=== PATIENT | female | born 1990 | race Caucasian/White ===

== ENCOUNTER 2016-05-07 18:08 | Outpatient (CLI) | payer BC ==
[2016-05-07] MEDS ORDERED: SODIUM CHLORIDE 0.9% 1,000 ML IV ONE ×2 (18:24)
[2016-05-07 18:57] VITALS: BP 132/77; PULSE 69; RESP 16; TEMP 97
--- NOTE | 2016-05-07 20:00 | P.PN ---
Subjective Principal diagnosis: Dehydration Patient has just notified me of 3 days of diarrhea at least 5-6 times daily of pale consistency and foul odor. She also developed acute vomiting last night. She is unable to keep anything oral. She also reports persistent nausea. She is accompanied by her mother and grandmother. No reports of fevers or chills. She denies any purulent drainage from left upper quadrant incision. Incidentally, she had fell and her left upper quadrant incision. Objective - Vital Signs Vital signs: Vital Signs Temp 97 F L 05/07/16 18:35 Pulse 69 05/07/16 18:35 Resp 16 05/07/16 18:35 BP 132/77 05/07/16 18:35 Pulse Ox 96 05/07/16 18:35 Intake & Output 05/07/16 05/07/16 05/08/16 06:59 18:59 06:59 Weight 153.768 kg - Exam GENERAL: Well developed and in no acute distress. Pleasant. HEENT: No sclera icterus. Extraocular movements grossly intact. Moist buccal mucosa. Head is atraumatic, normocephalic. Hears conversational speech. No nasal drainage. NECK: Supple without lymphadenopathy. No JV distention. CHEST: Non-labored respirations and equal bilateral excursions. CARDIOVASCULAR: Regular rate and rhythm. Palpable 2+ radial pulses. ABDOMEN: Soft. Nondistended. Mild tenderness along the left upper quadrant. No signs of infection or cellulitis. MUSCULOSKELETAL: No clubbing, cyanosis or edema. NEUROLOGIC: No focal or lateralizing signs. PSYCH: Appropriate affect. Alert and oriented to person, place and time. Assessment and Plan (1) Diarrhea Status: Acute (2) Dehydration Status: Acute (3) Intractable nausea and vomiting Status: Acute (4) Acute diverticulitis Status: Acute (5) BMI 50.0-59.9, adult Status: Chronic (6) Benign hypertension without congestive heart failure Status: Chronic (7) Morbid (severe) obesity due to excess calories Status: Chronic (8) S/P gastric bypass Status: Chronic Plan: 1. Recommend IV fluid hydration. As her symptoms has been ongoing for 3 days, she may be behind in fluids anywhere between 6-8 L. 2. For her history of diverticulitis, recommend Flagyl 500 mg 3 times daily. 3. CBC including compress a metabolic panel. 4. Recommend follow-up in the [facility] in 24-48 hours. 5. Postoperative bariatric instructions are also addressed including to notify the center of any acute issues as early as possible.
[2016-05-07 20:14] LABS: ALT 46 U/L (9-52); AST 58 U/L (14-36); Alkaline Phosphatase 41 U/L (38-126); Anion Gap 11 mmol/L; Blood Urea Nitrogen 13 mg/dL (7-17); Calcium 9.1 mg/dL (8.4-10.2); Carbon Dioxide 23 mmol/L (22-30); Chloride 105 mmol/L (98-107); Glucose 84 mg/dL (74-99); Magnesium 1.9 mg/dL (1.6-2.3); Non-African American GFR(MDRD) >60 (>60 ml/min/1.73 sqM); Sodium 139 mmol/L (137-145); Total Bilirubin 0.7 mg/dL (0.2-1.3); Total Protein 7.1 g/dL (6.3-8.2)
[2016-05-07 20:19] LABS: Potassium 5.6 mmol/L (3.5-5.1)
[2016-05-07 20:56] LABS: Basophils # (A) 0.1 k/uL (0-0.2); Basophils % (A) 1 %; CH 29.2; CHCM 34.5; Eosinophils # (A) 0.2 k/uL (0-0.7); Eosinophils % (A) 2 %; HCT 37.7 % (34.0-46.0); HDW 2.94; HGB 12.8 gm/dL (11.4-16.0); Luc # (Auto) 0.13; Luc % (Auto) 2; Lymphocytes # (A) 1.8 k/uL (1.0-4.8); Lymphocytes % (A) 28 %; MCH 28.8 pg (25.0-35.0); MCHC 33.9 g/dL (31.0-37.0); MCV 85.1 fL (80.0-100.0); Mean Platelet Volume 7.1; Monocytes # (A) 0.4 k/uL (0-1.0); Monocytes % (A) 6 %; Neutrophils # (A) 3.9 k/uL (1.3-7.7); Neutrophils % (A) 61 %; RBC 4.43 m/uL (3.80-5.40); RDW 12.1 % (11.5-15.5); WBC 6.5 k/uL (3.8-10.6); WBC (Perox) 6.71
== END 2016-05-07 21:15 | disposition home or self-care (01) ==
LOC: PEDOP 18:08
PROVIDERS: ATTEND Surgery Plastic and Reconstructive Surgery
DX: Z48.815 Encounter for surgical aftercare following surgery on the digestive system (principal); R19.7 Diarrhea, unspecified; E86.0 Dehydration; R11.2 Nausea with vomiting, unspecified; K57.92 Diverticulitis of intestine, part unspecified, without perforation or abscess without bleeding; I10 Essential (primary) hypertension; E66.01 Morbid (severe) obesity due to excess calories; Z68.43 Body mass index [BMI] 50.0-59.9, adult; Z98.84 Bariatric surgery status
CPT/HCPCS: 80053; 83735; 85025; 96360; 96361

== ENCOUNTER → 2016-05-09 | Outpatient (CLI) | payer BC ==
--- NOTE | 2016-05-27 16:40 | P.PN ---
Progress Note - Text DATE OF SERVICE: 05/09/2016 CHIEF COMPLAINT: Followup, gastric bypass. HISTORY OF PRESENT ILLNESS: Bisi Allen is a 26-year-old female, status post Raissa-en-Y gastric bypass on 04/18/2016. She is approximately 3 weeks out. For her height of approximately 5 feet 8-1/2 inches, her ideal body weight is 163 pounds. Her highest weight was 366 pounds. Today she comes in weighing 335 pounds. She has now lost 32 pounds in 3 weeks. Percent excess weight loss is 16%. Body mass index has been reduced from 55 to 50.2. In the past she did report some troubles with nausea and diarrhea, which after IV fluid hydration 48 hours ago have now resolved. She denies any abdominal pain. She is managing at least 3 protein shakes daily. PHYSICAL EXAM: VITAL SIGNS: 98.4, 76, 150/67, 16, 5 feet 8-1/2 inches, 335 pounds. Body mass index 50.2. GENERAL: Well-developed female in no acute distress. ABDOMEN: All incisions granulated. No signs of infection or cellulitis. HEENT: No scleral icterus. Extraocular movements intact grossly intact. NECK: Supple without lymphadenopathy. CHEST: Nonlabored respirations. Equal bilateral excursions. CARDIOVASCULAR: Regular rate and rhythm. MUSCULOSKELETAL: No clubbing, cyanosis, or edema. NEURO: No focal or lateralizing signs. Cranial nerves II through XII within normal limits. PSYCH: Appropriate affect. Alert and oriented times to person, place and time. ASSESSMENT: 1. Morbid obesity due to excess calories. 2. Body mass index reduced from 55 to 50.2. 3. Status post Raissa-en-Y gastric bypass. 4. Dietary surveillance and counseling. PLAN: 1. I have recommended continued IV fluid hydration and boluses. 2. Her symptoms of diarrhea have completely resolved with IV fluids. 3. Recommend bariatric metabolic panel. ADDENDUM: Recent labs reviewed, with hemoglobin normal at 12.8. White blood cell count was within normal limits at 6.5. Potassium was initially elevated at 5.6; however, consistent with hemolysis. Creatinine was normal at 0.61. AST was elevated at 58. Triglycerides were not performed at this time. Recommend repeat blood work, ideally at least at 3-month visit.
== END | disposition home or self-care (01) ==
CPT/HCPCS: 99211

== ENCOUNTER → 2016-05-17 | Outpatient (CLI) | payer BC ==
[2016-05-17 11:26] VITALS: BP 142/96; PULSE 67; RESP 14; TEMP 98.4; BMI 48.7
--- NOTE | 2016-05-17 11:36 | P.PN ---
Progress Note - Text To whom it may concern: Bisi Allen is under my general surgery care. She may return to work without restrictions. Sincerely, Suad Sharif MD, FACS, FICS, Dip JAEM
[2016-05-17 12:44] LABS: INR 1.2 (<1.1); Partial Thromboplastin Time 24.6 sec (22.0-30.0); Prothrombin Time 11.6 sec (9.0-12.0)
[2016-05-17 12:48] LABS: ALT 58 U/L (9-52); AST 42 U/L (14-36); Alkaline Phosphatase 53 U/L (38-126); Anion Gap 13 mmol/L; Blood Urea Nitrogen 12 mg/dL (7-17); Calcium 9.7 mg/dL (8.4-10.2); Carbon Dioxide 24 mmol/L (22-30); Chloride 105 mmol/L (98-107); Cholesterol 174 mg/dL (<200); Glucose 94 mg/dL (74-99); HDL Cholesterol 32 mg/dL (40-60); Iron 70 ug/dL (37-170); Non-African American GFR(MDRD) >60 (>60 ml/min/1.73 sqM); Potassium 4.6 mmol/L (3.5-5.1); Sodium 142 mmol/L (137-145); Total Bilirubin 0.6 mg/dL (0.2-1.3); Total Protein 6.8 g/dL (6.3-8.2); Triglycerides 155 mg/dL (<150)
[2016-05-17 12:58] LABS: % Iron Saturation 20.2 % (20-50); Total Iron Binding Capacity 347 ug/dL (265-497)
[2016-05-17 13:10] LABS: CH 29.1; CHCM 34.3; HCT 40.6 % (34.0-46.0); HDW 2.93; HGB 13.6 gm/dL (11.4-16.0); MCH 28.6 pg (25.0-35.0); MCHC 33.6 g/dL (31.0-37.0); Mean Platelet Volume 6.7; RBC 4.77 m/uL (3.80-5.40); RDW 12.5 % (11.5-15.5); WBC 6.2 k/uL (3.8-10.6)
[2016-05-17 13:28] LABS: Prealbumin 23 mg/dL (18-36)
[2016-05-17 14:23] LABS: Vitamin B12 587 pg/mL (239-931)
[2016-05-24 18:11] LABS: Selenium 137 mcg/L (63-160)
--- NOTE | 2016-05-27 20:57 | P.PN ---
Progress Note - Text DATE OF SERVICE: 05/17/2016 CHIEF COMPLAINT: Follow up gastric bypass. HISTORY OF PRESENT ILLNESS: Bisi Allen is a 26-year-old female, status post gastric bypass 04/18/2016. She is now one month out. Her initial weight in the program was 366 pounds. Today she comes in weighing 330 pounds. She has lost 37 pounds in one month . Her percent excess weight loss is 18%. Body mass index is reduced from 55 down to 49.5. She has lost 5 pounds in less than a week. She comes is now complaining that she cannot tolerate chicken. She has trouble tolerating tuna fish. She can drink liquids. She has tried chili and shredded chicken and has done okay. Now she presents for further evaluation and management. Separately, she does complain of a moderate burping which has increased in the last several weeks. She is keeping adequate fluid intake. PHYSICAL EXAM: VITAL SIGNS: 98.4, 67, 14, 142/96, 5 foot 8-1/2, 330 pounds. Body mass index 49.5. ABDOMEN: No palpable incisional hernias. No signs of infection or cellulitis. GENERAL: Well developed female in no acute distress. HEENT: No scleral icterus. Extraocular movements intact grossly intact. NECK: Supple without lymphadenopathy. CHEST: Nonlabored respirations. Equal bilateral excursions. CARDIOVASCULAR: Regular rate and rhythm. MUSCULOSKELETAL: No clubbing, cyanosis, or edema. NEURO: No focal or lateralizing signs. Cranial nerves II through XII within normal limits. PSYCH: Appropriate affect. Alert and oriented times to person, place and time. LABS: Bariatric metabolic panel demonstrating hemoglobin normal at 13.6. INR normal at 1.2. AST elevated at 42. ALT elevated at 58. Triglycerides elevated at 155. LDL elevated at 111. HDL low at 32. Vitamin D is low at 17.9. Trace elements still pending; however, I feel within normal limits. ASSESSMENT: 1. Morbid obesity due to excess calories. 2. Body mass index reduced from 55 down to 49.5. 3. Status post gastric bypass. 4. Vitamin D deficiency. 5. Hypertriglyceridemia. 6. Elevated liver enzymes. 7. Dietary surveillance and counseling. 8. Dysphagia. PLAN: 1. Recommend upper endoscopy, as she may have early features of stricture from her surgery. 2. In the interim, she will continue with liquids; however, she may trial solid foods. 3. She has vitamin D deficiency. I recommend 50,000 units daily for treatment. 4. She may start multivitamins in the interim. 5. Recommend follow up of LFTs as she is still pretty early in her postoperative course. 6. She will continue with omeprazole 40 mg daily for up to 3 months for pouch care.
== END | disposition home or self-care (01) ==
LOC: BARWHC3 10:47
PROVIDERS: ATTEND Surgery Plastic and Reconstructive Surgery
DX: Z48.815 Encounter for surgical aftercare following surgery on the digestive system (principal); Z98.84 Bariatric surgery status; Z71.3 Dietary counseling and surveillance; E66.01 Morbid (severe) obesity due to excess calories; Z68.42 Body mass index [BMI] 45.0-49.9, adult; E55.9 Vitamin D deficiency, unspecified; E78.1 Pure hyperglyceridemia; R79.89 Other specified abnormal findings of blood chemistry; R13.10 Dysphagia, unspecified; Z79.899 Other long term (current) drug therapy
CPT/HCPCS: 36415; 80053; 80061; 82306; 82525; 82607; 82728; 82746; 83036; 83540; 83550; 83735; 83970; 84100; 84134; 84255; 84425; 84443; 84590; 84630; 85027; 85610; 85730; 99211

== ENCOUNTER 2016-05-20 15:53 | Outpatient (CLI) | payer BC ==
--- NOTE | 2016-05-20 14:31 | P.PN ---
Progress Note - Text Patient notified the bariatric center regarding inability to tolerate oral liquids. She has difficulty with solid foods. She reports dysphagia. She also reports nausea with signs of dehydration. Patient was asked to come in to receive IV fluid hydration. Will proceed with upper endoscopy as an outpatient.
--- NOTE | 2016-05-20 14:33 | P.PN ---
Subjective Principal diagnosis: Dehydration The patient presents with a history of dehydration. She reports intractable nausea and vomiting. She has been unable to tolerate liquids. Now she presents for IV fluid hydration. Objective - Vital Signs Vital signs: Vital Signs Temp 97.6 F 05/20/16 16:40 Pulse 73 05/20/16 16:40 Resp 20 05/20/16 16:40 BP 158/83 05/20/16 16:40 Pulse Ox 97 05/20/16 16:40 Intake & Output 05/19/16 05/20/16 05/20/16 18:59 06:59 18:59 Weight 149.685 kg - Exam GENERAL: Well developed and in no acute distress. Pleasant. HEENT: No sclera icterus. Extraocular movements grossly intact. Moist buccal mucosa. Head is atraumatic, normocephalic. Hears conversational speech. No nasal drainage. NECK: Supple without lymphadenopathy. No JV distention. CHEST: Non-labored respirations and equal bilateral excursions. CARDIOVASCULAR: Regular rate and rhythm. Palpable 2+ radial pulses. ABDOMEN: Soft, nontender. Nondistended. MUSCULOSKELETAL: No clubbing, cyanosis or edema. NEUROLOGIC: No focal or lateralizing signs. PSYCH: Appropriate affect. Alert and oriented to person, place and time. Assessment and Plan (1) Dehydration Status: Acute (2) Dysphagia Status: Acute Plan: 1. Recommend IV fluid hydration. 2. Recommend upper endoscopy with balloon dilatation as an outpatient. 3. Liquid diet in the interim.
[~2016-05-20 15:53] MED LIST: SODIUM CHLORIDE 0.9% 1,000 ML IV SCH; SODIUM CHLORIDE 0.9% 2,000 ML IV ONE
[2016-05-20 16:46] VITALS: BP 158/83; PULSE 73; RESP 20; TEMP 97.6
== END 2016-05-20 18:56 | disposition home or self-care (01) ==
LOC: PEDOP 15:53
PROVIDERS: ATTEND Surgery Plastic and Reconstructive Surgery
DX: Z48.815 Encounter for surgical aftercare following surgery on the digestive system (principal); E86.0 Dehydration; R13.10 Dysphagia, unspecified; R11.2 Nausea with vomiting, unspecified
CPT/HCPCS: 96360; 96361

== ENCOUNTER 2016-05-21 11:20 | Day surgery (SDC) | payer BC ==
[~2016-05-21 11:20] MED LIST changes: -SODIUM CHLORIDE 0.9% 2,000 ML IV ONE
[2016-05-21] MEDS ORDERED: SODIUM CHLORIDE 0.9% 2,000 ML IV ONE (11:41)
[2016-05-21 12:14] VITALS: TEMP 98.8
[2016-05-21] MEDS ORDERED: LIDOCAINE 1% 20 ML VIAL (10MG/ML) FOR IV START INTRADERMA ONE (12:39)
[2016-05-21] MEDS ORDERED: LIDOCAINE 1% INJ 10MG/ML (20 ML MDV) ONE (13:17)
[2016-05-21] MEDS ORDERED: PROPOFOL 10 MG/ML 20 ML VIAL IV ONE (13:17)
--- NOTE | 2016-05-21 13:22 | P.GSHP ---
History of Present Illness H&P Date: 05/21/16 CHIEF COMPLAINT: Dysphagia HISTORY OF PRESENT ILLNESS: The patient is a 26-year-old female who presents reports dysphagia. Upper endoscopy was offered for further evaluation and management. PAST MEDICAL HISTORY: Please see list. PAST SURGICAL HISTORY: Please see list. MEDICATIONS: Please see list. ALLERGIES: Please see list. SOCIAL HISTORY: No illicit drug use FAMILY HISTORY: No reports of Crohn disease or ulcerative colitis. REVIEW OF ORGAN SYSTEMS: CONSTITUTIONAL: No reports of fevers or chills. GI: Denies any blood in stools or constipation. PHYSICAL EXAM: VITAL SIGNS: Stable GENERAL: Well-developed and pleasant in no acute distress. HEENT: No scleral icterus. Extraocular movements grossly intact. Moist buccal mucosa. NECK: Supple without lymphadenopathy. CHEST: Unlabored respirations. Equal bilateral excursions. CARDIOVASCULAR: Regular rate and rhythm. Distal 2+ pulses. ABDOMEN: Soft, nondistended. MUSCULOSKELETAL: No clubbing, cyanosis, or edema. ASSESSMENT: 1. Dysphagia. PLAN: 1. Recommend proceeding with an upper endoscopy with balloon dilation. Past Medical History Past Medical History: Hypertension, Thyroid Disorder Additional Past Medical History / Comment(s): Diverticulitis diagnosed in 2010. HX LOW THYROID RX FEW YEARS AGO. HIATAL HERNIA. BORDERLINE HTN. History of Any Multi-Drug Resistant Organisms: None Reported Past Surgical History: Bariatric Surgery, Cholecystectomy, Tonsillectomy Additional Past Surgical History / Comment(s): Cholecystecomy Nov 2015. EGD 03/07/16. gastric bypass -16 Past Anesthesia/Blood Transfusion Reactions: Family History of Problems w/ Anesthesia, Postoperative Nausea & Vomiting (PONV) Additional Past Anesthesia/Blood Transfusion Reaction / Comment(s): NEVER RECEIVED BLOOD. PARENTS HAVE PONV. Past Psychological History: No Psychological Hx Reported Smoking Status: Never smoker Past Alcohol Use History: None Reported Past Drug Use History: None Reported - Past Family History Father Family Medical History: No Reported History Mother Family Medical History: No Reported History Medications and Allergies Allergies Allergy/AdvReac Type Severity Reaction Status Date / Time venom-honey bee Allergy Swelling Verified 05/20/16 16:31 [bee venom (honey bee)] gluten AdvReac Abdominal Verified 05/20/16 16:31 Pain Surgical - Exam Vital Signs Temp Pulse Resp BP Pulse Ox 98.8 F 76 16 127/71 97 05/21/16 12:13 05/21/16 12:13 05/21/16 12:13 05/21/16 12:13 05/21/16 12:13
--- NOTE | 2016-05-21 13:36 | P.PCN ---
Date of Procedure: 05/21/16 Description of Procedure: PREOPERATIVE DIAGNOSIS: Dysphagia. Nausea with vomiting. Morbid obesity. POSTOPERATIVE DIAGNOSIS: Dysphagia. Nausea with vomiting. Morbid obesity. 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 OPERATION: Esophagogastrojejunoscopy with balloon dilatation from 1 to 9 mm. SURGEON: Suad Sharif MD ANESTHESIA: MAC. INDICATIONS: The patient is a 26-year-old female who presents with a history of dysphagia, gastric bypass including new-onset nausea and vomiting. Benefits and risks of the procedure were described. Informed consent was obtained. DESCRIPTION: The patient was brought into the endoscopy suite and laid in the left lateral decubitus position. After a timeout was confirmed, the procedure was initiated. An Olympus gastroscope was passed along the posterior oropharynx down to the distal esophagus where the squamocolumnar junction was unremarkable. The gastric pouch was entered. A gastrojejunal stricture of 11 mm was found as the adult gastroscope was 8.6 mm in size. The actual ball tip of the balloon was actually larger than the entry of her anastomosis. A [employer] balloon dilator was placed through the scope. Final insufflation up to 9 mm was performed with a total of 2 minutes. The scope was advanced up to 60 cm from the incisors into the Raissa limb. The mucosa of the gastrojejunal anastomosis was intact without full-thickness injury. The GI tract was desufflated. The patient tolerated the procedure well. FINDINGS: Squamocolumnar junction unremarkable at 37 cm. Stricture of approximately 1 mm encountered. Chronic gastrojejunal early ulceration encountered. Successful balloon dilatation to 9 mm. Diaphragmatic hiatus at 40 cm. Gastric pouch 3 cm. RECOMMENDATIONS: Continue with omeprazole. Add Carafate for gastrojejunal ulcer. Will need repeat upper endoscopy with goal of 15 to 20 mm balloon. Plan - Discharge Summary Discharge Medication List Omeprazole 40 mg PO DAILY #90 capsule. 04/19/16 [Rx] Follow up Appointment(s)/Referral(s): Suad Sharif MD [STAFF PHYSICIAN] - 05/30/16 Patient Instructions/Handouts: Esophageal Dilation (DC), Chronic Dysphagia (DC) Activity/Diet/Wound Care/Special Instructions: Liquid diet today. Regular diet tomorrow. Discharge Disposition: HOME SELF-CARE
[2016-05-21] MEDS ORDERED: ONDANSETRON 4 MG/2 ML VIAL IVP ONE (13:57)
[2016-05-21 14:54] VITALS: RESP 18
[2016-05-21 15:25] VITALS: BP 147/78; PULSE 78
== END 2016-05-21 15:18 | disposition home or self-care (01) ==
LOC: ORWHC2ENDO 11:20
PROVIDERS: ATTEND Surgery Plastic and Reconstructive Surgery
DX: K31.89 Other diseases of stomach and duodenum (principal); K28.7 Chronic gastrojejunal ulcer without hemorrhage or perforation; Z98.84 Bariatric surgery status; E66.01 Morbid (severe) obesity due to excess calories; K21.9 Gastro-esophageal reflux disease without esophagitis; Z79.899 Other long term (current) drug therapy; Z91.030 Bee allergy status
CPT/HCPCS: 81025; 84703; 43249; J2405; J2001; J2704; C1726; 99153

== ENCOUNTER 2016-06-06 08:02 | Day surgery (SDC) | payer BC ==
[2016-06-05 15:26] VITALS: BMI 48.6
--- NOTE | 2016-06-06 05:53 | P.GSHP ---
History of Present Illness H&P Date: 06/06/16 CHIEF COMPLAINT: GERD HISTORY OF PRESENT ILLNESS: The patient is a 26-year-old female who presents reports gastroesophageal reflux disease. Upper endoscopy was offered for further evaluation and management. PAST MEDICAL HISTORY: Please see list. PAST SURGICAL HISTORY: Please see list. MEDICATIONS: Please see list. ALLERGIES: Please see list. SOCIAL HISTORY: No illicit drug use FAMILY HISTORY: No reports of Crohn disease or ulcerative colitis. REVIEW OF ORGAN SYSTEMS: CONSTITUTIONAL: No reports of fevers or chills. GI: Denies any blood in stools or constipation. PHYSICAL EXAM: VITAL SIGNS: Stable GENERAL: Well-developed and pleasant in no acute distress. HEENT: No scleral icterus. Extraocular movements grossly intact. Moist buccal mucosa. NECK: Supple without lymphadenopathy. CHEST: Unlabored respirations. Equal bilateral excursions. CARDIOVASCULAR: Regular rate and rhythm. Distal 2+ pulses. ABDOMEN: Soft, nondistended. MUSCULOSKELETAL: No clubbing, cyanosis, or edema. ASSESSMENT: 1. Gastroesophageal reflux disease PLAN: 1. Recommend proceeding with an upper endoscopy Past Medical History Past Medical History: Hypertension, Thyroid Disorder Additional Past Medical History / Comment(s): HX OF DIVERTICULITIS (2010), HIATAL HERNIA.. BORDERLINE HTN., STATES FOOD DOES NOT WANT TO STAY DOWN- SPITTING UP. History of Any Multi-Drug Resistant Organisms: None Reported Past Surgical History: Bariatric Surgery, Cholecystectomy, Tonsillectomy Additional Past Surgical History / Comment(s): Cholecystecomy Nov 2015. EGD 03/07/16, 05/21/16. , АНДРЕЙ-EN-Y GASTRIC BYPASS (04/18/16) Past Anesthesia/Blood Transfusion Reactions: Family History of Problems w/ Anesthesia, Motion Sickness, Postoperative Nausea & Vomiting (PONV) Additional Past Anesthesia/Blood Transfusion Reaction / Comment(s): IMMEDIATE FAMILY ALSO HAVE PONV. Past Psychological History: No Psychological Hx Reported Smoking Status: Never smoker Past Alcohol Use History: None Reported Past Drug Use History: None Reported - Past Family History Father Family Medical History: No Reported History Mother Family Medical History: No Reported History Medications and Allergies Home Medications Medication Instructions Recorded Confirmed Type Calcium Citrate (Unknown Dose) 1 dose PO DAILY 06/05/16 06/05/16 History Multivitamins, Thera [Multivitamin] 1 tab PO DAILY 06/05/16 06/05/16 History Allergies Allergy/AdvReac Type Severity Reaction Status Date / Time venom-honey bee Allergy Swelling Verified 06/05/16 15:14 [bee venom (honey bee)] gluten AdvReac Abdominal Verified 06/05/16 15:14 Pain
[~2016-06-06 08:02] MED LIST changes: +LACTATED RINGERS 1,000 ML IV SCH; +LIDOCAINE 1% 20 ML VIAL (10MG/ML) FOR IV START INTRADERMA PRN; -SODIUM CHLORIDE 0.9% 1,000 ML IV SCH
[2016-06-06 08:23] VITALS: RESP 16; TEMP 98.6
[2016-06-06] MEDS ORDERED: GLYCOPYRROLATE 0.2 MG/ML 2 ML VIAL ONE (09:16)
[2016-06-06] MEDS ORDERED: LIDOCAINE 1% INJ 10MG/ML (20 ML MDV) ONE (09:16)
[2016-06-06] MEDS ORDERED: PROPOFOL 10 MG/ML 20 ML VIAL IV ONE (09:16)
--- NOTE | 2016-06-06 09:32 | P.PCN ---
Date of Procedure: 06/06/16 Description of Procedure: PREOPERATIVE DIAGNOSIS: Dysphagia. Nausea with vomiting. Morbid obesity. POSTOPERATIVE DIAGNOSIS: Dysphagia. Nausea with vomiting. Morbid obesity. Gastric stenosis along gastrojejunal anastomosis. OPERATION: Esophagogastrojejunoscopy with balloon dilatation from 7 to 12 mm. SURGEON: Suad Sharif MD ANESTHESIA: MAC. INDICATIONS: The patient is a 26-year-old female who presents with a history of stenosis and dysphagia to solid foods. Benefits and risks of the procedure were described. Informed consent was obtained. DESCRIPTION: The patient was brought into the endoscopy suite and laid in the left lateral decubitus position. After a timeout was confirmed, the procedure was initiated. An Olympus gastroscope was passed along the posterior oropharynx down to the distal esophagus where the squamocolumnar junction was unremarkable. The gastric pouch was entered. A gastrojejunal stricture of 7 mm was found as the adult gastroscope was 8.6 mm in size. A [employer] balloon dilator was placed through the scope. Initial balloon dilation started at 8 mm. Final insufflation up to 12 mm was performed with a total of 2 minutes. The scope was advanced up to 60 cm from the incisors into the Raissa limb. The mucosa of the gastrojejunal anastomosis was intact without full- thickness injury with minimal bleeding. The GI tract was desufflated. The patient tolerated the procedure well. FINDINGS: Squamocolumnar junction unremarkable at 37 cm. Stricture of approximately 7 mm encountered. Successful balloon dilatation to 12 mm. Diaphragmatic hiatus at 40 cm. Gastric pouch 3 cm. RECOMMENDATIONS: Continue with omeprazole. Upper endoscopy as needed.
[2016-06-06 09:39] VITALS: BP 131/66; PULSE 72
== END 2016-06-06 10:12 | disposition home or self-care (01) ==
LOC: ORWHC2ENDO 08:02
PROVIDERS: ATTEND Surgery Plastic and Reconstructive Surgery
DX: K91.89 Other postprocedural complications and disorders of digestive system (principal); K56.69 Other intestinal obstruction; R13.10 Dysphagia, unspecified; E66.01 Morbid (severe) obesity due to excess calories; Z68.42 Body mass index [BMI] 45.0-49.9, adult; K44.9 Diaphragmatic hernia without obstruction or gangrene; Z79.899 Other long term (current) drug therapy; Y83.2 Surgical operation with anastomosis, bypass or graft as the cause of abnormal reaction of the patient, or of later complication, without mention of misadventure at the time of the procedure; Z91.02 Food additives allergy status
CPT/HCPCS: 81025; 84703; 43245; J2001; J2704; C1726 ×2; 43249

== ENCOUNTER 2016-06-13 14:32 | Observation (INO) | payer BC ==
[2016-06-13] MEDS ORDERED: METOCLOPRAMIDE 5 MG/ML 2 ML VIAL IVP PRN (15:45)
[2016-06-13] MEDS ORDERED: NALOXONE 0.4 MG/ML 1 ML VIAL IV PRN (15:45)
[2016-06-13] MEDS: ONDANSETRON 4 MG/2 ML VIAL IVP PRN (16:20)
[2016-06-13] MEDS ORDERED: RX INFO: IV CONTRAST WAS GIVEN 1 EACH MISC MISCELLANE PRN (16:35)
[2016-06-13] MEDS ORDERED: IOHEXOL 350 MG/ML 25 ML BOTTLE (ORAL USE) PO PRN (16:35)
--- NOTE | 2016-06-13 17:51 | CT ---
EXAMINATION TYPE: CT abdomen pelvis w con DATE OF EXAM: 06/13/2016 5:44 PM COMPARISON: 12/17/2015 HISTORY: Pt states of vomiting and abdominal pain. Hx of gastric bypass x2 months ago. CT DLP: 1838 mGycm Automated exposure control for dose reduction was used. TECHNIQUE: Helical acquisition of images was performed from the lung bases through the pelvis. CONTRAST: Performed with Oral Contrast and with IV Contrast, patient injected with 100 mL of Omnipaque 300. FINDINGS: Lung bases are clear. There is no pleural effusion. Heart size is normal. Liver shows no focal defect. There are clips from cholecystectomy. There are clips from bariatric vaishali nigel at the stomach. Spleen appears normal. There is no pancreatic mass. There is no adrenal mass. Ki dneys show satisfactory contrast opacification. There is no hydronephrosis. There is no retroperitone al adenopathy. There is no ascites. Bladder distends smoothly. There is no sign of a pelvic mass. The re is no free fluid in the pelvis. Appendix appears normal. I see no bony destructive process. There are a few diverticula in the left colon.. IMPRESSION: THERE IS MILD COLONIC DIVERTICULOSIS WITHOUT EVIDENCE OF DIVERTICULITIS. NO SIGN OF ACUTE ABDOMEN AND PELVIS. NO ADVERSE CHANGE COMPARED TO OLD EXAM.
[2016-06-13] MEDS: HYDROmorphone 1 MG/ML 1 ML SYRINGE IVP PRN ×2 (17:58→21:19)
[2016-06-13] MEDS: SODIUM CHLORIDE 0.9% 1,000 ML IV SCH (18:00)
--- NOTE | 2016-06-13 18:11 | P.GSHP ---
History of Present Illness H&P Date: 06/13/16 Chief Complaint: History of abdominal pain for 1 week The patient is a 26-year-old female who is status post gastric bypass over 2 months ago. She developed a gastrojejunal stricture and has had 2 separate dilatations. After her last upper endoscopy one week ago, she reports 2 days later developing epigastric abdominal pain radiating to the bilateral lateral upper abdomen. She reports decreased oral fluid intake. She reports difficulty with fluids. She presented to the bariatric center earlier today with the moderate abdominal pain. As she has poor oral intake and new onset epigastric abdominal pain, she has been admitted for observation. Today she has lost over 50+ pounds in 7 weeks since her procedure. - Review of Systems Comment: CONSTITUTIONAL: Denies any fever or chills. Intentional weight loss over 50 pounds in 7 weeks. HEENT: Denies any trouble with vision, hearing or nosebleeds. Has difficulty swallowing. LYMPHATIC: The patient denies any lumps and bumps around the neck. ENDOCRINE: Has thyroid disorders. Denies any blood sugar glucose intolerance. RESPIRATORY: Denies pneumonia. Denies any troubles with breathing or dyspnea on exertion. CARDIOVASCULAR: Denies any chest pain, palpitations, or recent heart attacks. GASTROINTESTINAL: Denies heart burn, constipation or bright red blood per rectum. See above. Reports epigastric abdominal pain. History of gastrojejunal stricture. GENITOURINARY: Denies any blood in urine or increased urinary frequency. MUSCULOSKELETAL: Has occasional back pain, stiffness joint arthritis. NEUROLOGIC: Denies any numbness or tingling along the distal extremities. No seizure disorders or headaches. PSYCHIATRIC: Denies depression or suidical ideation. HEMATOLOGIC: Denies any abnormal bleeding or bruising. BREASTS: Denies any breast lumps, pain or nipple discharge. Past Medical History Past Medical History: Hypertension, Thyroid Disorder Additional Past Medical History / Comment(s): Dysphagia x 2 days, gastric stenosis since surgery 06/06/16, DIVERTICULITIS (2010), BORDERLINE HTN, hypothyroid. History of Any Multi-Drug Resistant Organisms: None Reported Past Surgical History: Bariatric Surgery, Cholecystectomy, Tonsillectomy Additional Past Surgical History / Comment(s): Cholecystecomy Nov 2015. EGDs with last time being 06/06/16, АНДРЕЙ-EN-Y GASTRIC BYPASS (04/18/16) Past Anesthesia/Blood Transfusion Reactions: Family History of Problems w/ Anesthesia, Motion Sickness, Postoperative Nausea & Vomiting (PONV) Additional Past Anesthesia/Blood Transfusion Reaction / Comment(s): IMMEDIATE FAMILY ALSO HAVE PONV. Past Psychological History: No Psychological Hx Reported Smoking Status: Never smoker Past Alcohol Use History: None Reported Past Drug Use History: None Reported - Past Family History Father Family Medical History: No Reported History Mother Family Medical History: No Reported History Medications and Allergies Home Medications Medication Instructions Recorded Confirmed Type Calcium Citrate (Unknown Dose) 1 dose PO DAILY 06/05/16 06/13/16 History Multivitamins, Thera [Multivitamin] 1 tab PO DAILY 06/05/16 06/13/16 History Ergocalciferol [Vitamin D2] 50,000 unit PO Q7D 06/13/16 06/13/16 History Allergies Allergy/AdvReac Type Severity Reaction Status Date / Time venom-honey bee Allergy Swelling Verified 06/13/16 16:44 [bee venom (honey bee)] gluten AdvReac Abdominal Verified 06/13/16 16:44 Pain Surgical - Exam Vital Signs Temp Pulse Resp BP Pulse Ox 97.9 F 64 16 154/82 99 06/13/16 15:33 06/13/16 15:33 06/13/16 15:33 06/13/16 15:33 06/13/16 15:33 GENERAL: Well developed and in no acute distress. Pleasant. HEENT: No sclera icterus. Extraocular movements grossly intact. Moist buccal mucosa. Head is atraumatic, normocephalic. Hears conversational speech. No nasal drainage. NECK: Supple without lymphadenopathy. No JV distention. CHEST: Non-labored respirations and equal bilateral excursions. CARDIOVASCULAR: Regular rate and rhythm. Palpable 2+ radial pulses. ABDOMEN: Soft. Nondistended. Focal tenderness along the epigastrium without peritonitis. MUSCULOSKELETAL: No clubbing, cyanosis or edema. NEUROLOGIC: No focal or lateralizing signs. Cranial nerves II through XII grossly within normal limits. PSYCH: Appropriate affect. Alert and oriented to person, place and time. Results - Imaging CT scan - abdomen: image reviewed CT scan - pelvis: image reviewed (Imaging reviewed demonstrating no free air within the abdomen. No inflammatory changes noted along the gastrojejunal anastomosis. Imaging results were reviewed with the patient and her family.) Assessment and Plan (1) Epigastric abdominal pain Status: Acute (2) Nausea & vomiting Status: Acute (3) Inadequate dietary intake of protein Status: Acute (4) Diverticulosis Status: Chronic (5) BMI 45.0-49.9, adult Status: Acute (6) Morbid (severe) obesity due to excess calories Status: Chronic (7) Sleep apnea, obstructive Status: Chronic (8) Thyroid disease Status: Chronic (9) Bariatric surgery status Status: Acute Plan: 1. She has completed her CT of the abdomen and pelvis. No evidence of recent leak was identified. 2. I have high suspicion that she has an ulcer along the gastric pouch. She has been started on Protonix 40 mg twice daily. 3. Additionally, Carafate has been started. 4. IV fluid hydration for history of inadequate oral intake and dehydration. 5. Upper endoscopy also described. No further dilatations recommended at this time. 6. She has history of diverticulosis along the transverse colon which may also exacerbated epigastric abdominal pain. We'll continue to follow. 7. Laboratory results are pending at this time. We'll hold any antibiotics pending results. I agree with admission at this time.
[2016-06-13 19:45] LABS: Basophils % (A) 1 %; CH 29.2; CHCM 34.3; Eosinophils # (A) 0.1 k/uL (0-0.7); Eosinophils % (A) 2 %; HCT 36.6 % (34.0-46.0); HDW 2.87; HGB 12.2 gm/dL (11.4-16.0); Luc # (Auto) 0.12; Luc % (Auto) 2; Lymphocytes # (A) 1.8 k/uL (1.0-4.8); Lymphocytes % (A) 33 %; MCH 28.4 pg (25.0-35.0); MCHC 33.3 g/dL (31.0-37.0); MCV 85.3 fL (80.0-100.0); Mean Platelet Volume 7.1; Monocytes # (A) 0.3 k/uL (0-1.0); Monocytes % (A) 6 %; Neutrophils # (A) 3.1 k/uL (1.3-7.7); Neutrophils % (A) 57 %; RBC 4.29 m/uL (3.80-5.40); RDW 12.7 % (11.5-15.5); WBC 5.5 k/uL (3.8-10.6); WBC (Perox) 5.79
[2016-06-13] MEDS: PANTOPRAZOLE 40 MG/10 ML VIAL IV SCH (20:03)
[2016-06-13 20:35] LABS: ALT 49 U/L (9-52); AST 45 U/L (14-36); Alkaline Phosphatase 53 U/L (38-126); Anion Gap 11 mmol/L; Blood Urea Nitrogen 9 mg/dL (7-17); Calcium 8.7 mg/dL (8.4-10.2); Carbon Dioxide 24 mmol/L (22-30); Chloride 105 mmol/L (98-107); Glucose 92 mg/dL (74-99); Magnesium 1.9 mg/dL (1.6-2.3); Non-African American GFR(MDRD) >60 (>60 ml/min/1.73 sqM); Phosphorous 4.2 mg/dL (2.5-4.5); Potassium 4.2 mmol/L (3.5-5.1); Sodium 140 mmol/L (137-145); Total Bilirubin 0.7 mg/dL (0.2-1.3); Total Protein 6.3 g/dL (6.3-8.2)
[2016-06-14] MEDS: ONDANSETRON 4 MG/2 ML VIAL IVP PRN ×3 (00:21→15:59)
[2016-06-14] MEDS: HYDROmorphone 1 MG/ML 1 ML SYRINGE IVP PRN ×4 (02:15→19:48)
[2016-06-14 07:13] LABS: Basophils % (A) 1 %; CH 29.2; CHCM 34.1; Eosinophils # (A) 0.1 k/uL (0-0.7); Eosinophils % (A) 2 %; HCT 35.9 % (34.0-46.0); HGB 12.1 gm/dL (11.4-16.0); Luc # (Auto) 0.12; Luc % (Auto) 3; Lymphocytes # (A) 1.8 k/uL (1.0-4.8); Lymphocytes % (A) 39 %; MCH 28.8 pg (25.0-35.0); MCHC 33.6 g/dL (31.0-37.0); MCV 85.9 fL (80.0-100.0); Mean Platelet Volume 6.9; Monocytes # (A) 0.3 k/uL (0-1.0); Monocytes % (A) 6 %; Neutrophils # (A) 2.4 k/uL (1.3-7.7); Neutrophils % (A) 50 %; RBC 4.18 m/uL (3.80-5.40); RDW 12.7 % (11.5-15.5); WBC 4.7 k/uL (3.8-10.6); WBC (Perox) 4.65
[2016-06-14 07:19] LABS: Anion Gap 9 mmol/L; Blood Urea Nitrogen 8 mg/dL (7-17); Calcium 8.7 mg/dL (8.4-10.2); Carbon Dioxide 23 mmol/L (22-30); Chloride 107 mmol/L (98-107); Glucose 78 mg/dL (74-99); Magnesium 1.9 mg/dL (1.6-2.3); Non-African American GFR(MDRD) >60 (>60 ml/min/1.73 sqM); Potassium 4.3 mmol/L (3.5-5.1); Sodium 139 mmol/L (137-145)
[2016-06-14] MEDS ORDERED: SODIUM CHLORIDE 0.9% 2,000 ML IV ONE (07:24)
[2016-06-14] MEDS: SODIUM CHLORIDE 0.9% 1,000 ML IV SCH ×6 (07:48→20:48)
[2016-06-14] MEDS: SUCRALFATE 1 GM TAB PO SCH ×3 (08:19→17:22)
[2016-06-14] MEDS: MAGNESIUM SULFATE-D5W PMX 1 GM in DEXTROSE/WATER 1 100ML.BAG IVPB SCH ×2 (08:51→10:30)
[2016-06-14] MEDS: PANTOPRAZOLE 40 MG/10 ML VIAL IV SCH ×2 (10:29→20:49)
[2016-06-14 12:29] VITALS: BMI 47.6
[2016-06-14] MEDS ORDERED: PROPOFOL 10 MG/ML 20 ML VIAL IV ONE (14:34)
[2016-06-14] MEDS ORDERED: ONDANSETRON 4 MG/2 ML VIAL ONE (14:34)
[2016-06-14] MEDS ORDERED: IV FLUID CONTINUATION 1,000 ML IV ONE (14:39)
--- NOTE | 2016-06-14 15:04 | P.PCN ---
Date of Procedure: 06/14/16 Preoperative Diagnosis: Dysphagia, gastric ulcer Postoperative Diagnosis: Same Procedure(s) Performed: Esophagogastrojejunoscopy Anesthesia: MAC Surgeon: Suad Sharif Pathology: none sent Condition: stable Disposition: floor Operative Findings: Recurrent stricture along the gastric pouch, small gastric ulcer
[2016-06-14] MEDS ORDERED: HYDROmorphone 1 MG/ML 1 ML SYRINGE IM STA (16:27)
--- NOTE | 2016-06-14 16:33 | P.PN ---
Subjective Principal diagnosis: Epigastric abdominal pain Patient is status post upper endoscopy. Findings consistent with recurrent gastric stricture. She reports no troubles with drinking warm beverages. She does report epigastric abdominal pain that had been present prior to her procedure. She is tearful. She is requesting pain medication. She did have immediate emesis. Objective - Vital Signs Vital signs: Vital Signs Temp 98.2 F 06/14/16 16:00 Pulse 75 06/14/16 16:00 Resp 18 06/14/16 16:00 BP 175/86 06/14/16 16:00 Pulse Ox 98 06/14/16 16:00 Intake & Output 06/13/16 06/14/16 06/14/16 18:59 06:59 18:59 Intake Total 400 Output Total 1 Balance 399 Weight 142.1 kg 142.1 kg Intake: IV 400 Output: Emesis 1 Other: Voiding Method Toilet Toilet Toilet # Voids 1 2 - Exam GENERAL: Well developed and in no acute distress. Pleasant. HEENT: No sclera icterus. Extraocular movements grossly intact. Moist buccal mucosa. Head is atraumatic, normocephalic. Hears conversational speech. No nasal drainage. NECK: Supple without lymphadenopathy. No JV distention. CHEST: Non-labored respirations and equal bilateral excursions. CARDIOVASCULAR: Tachycardic. Palpable 2+ radial pulses. ABDOMEN: Soft. Nondistended. Tender along the epigastrium. MUSCULOSKELETAL: No clubbing, cyanosis or edema. NEUROLOGIC: No focal or lateralizing signs. PSYCH: Alert and oriented to person, place and time. 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 Her dietary intake whereby primarily liquids with warm beverages were advised. 2. She reports epigastric abdominal pain. Continue with observation. 3. Will proceed with upper endoscopy and balloon dilatation at a deferred time. 4. Increase acid suppressive therapy with Prilosec twice daily. 5. Disposition home in 24 hours. 6. Liquid diet. 7. Bariatric rerecording mixer referral.
[2016-06-14] MEDS ORDERED: SCOPOLAMINE 1.5MG/72HR PATCH TRANSDERM STA (17:37)
[2016-06-14 19:31] VITALS: RESP 16
--- NOTE | 2016-06-14 19:43 | P.OP ---
Date of Procedure: 06/14/16 Description of Procedure: PREOPERATIVE DIAGNOSIS: Dysphagia. Nausea with vomiting. Epigastric abdominal pain. POSTOPERATIVE DIAGNOSIS: Dysphagia. Nausea with vomiting. Gastric stenosis along gastrojejunal anastomosis. Gastrojejunal anastomosis ulcer, chronic. Epigastric abdominal pain. OPERATION: Esophagogastrojejunoscopy. SURGEON: Suad Sharif MD ANESTHESIA: MAC. INDICATIONS: The patient is a 26-year-old female who presents with a history of epigastric abdominal pain and nausea and vomiting. Benefits and risks of the procedure were described. Informed consent was obtained. DESCRIPTION: The patient was brought into the endoscopy suite and laid in the left lateral decubitus position. After a timeout was confirmed, the procedure was initiated. An Olympus gastroscope was passed along the posterior oropharynx down to the distal esophagus where the squamocolumnar junction was unremarkable. The gastric pouch was entered. A gastrojejunal stricture of 9 mm was found as the adult gastroscope was 9.2 mm in size. An acute small marginal ulcer was found. Gentle pressure along the anastomosis was performed. The scope was advanced up to 60 cm from the incisors into the Raissa limb. The mucosa of the gastrojejunal anastomosis was intact without full-thickness injury with some bleeding. The GI tract was desufflated. The patient tolerated the procedure well. FINDINGS: Squamocolumnar junction unremarkable at 37 cm. Stricture of approximately 9 mm encountered. Acute gastrojejunal ulcer. RECOMMENDATIONS: Increase omeprazole to 40 mg BID. Recommend balloon dilation, goal over 15 to 18 mm.
[2016-06-14] MEDS: METOCLOPRAMIDE 5 MG/ML 2 ML VIAL IVP SCH (19:48)
[2016-06-15] MEDS: SODIUM CHLORIDE 0.9% 1,000 ML IV SCH ×3 (03:48→12:16)
[2016-06-15] MEDS: HYDROmorphone 1 MG/ML 1 ML SYRINGE IVP PRN ×2 (03:50)
[2016-06-15] MEDS: METOCLOPRAMIDE 5 MG/ML 2 ML VIAL IVP SCH ×3 (06:09→12:12)
[2016-06-15 08:10] VITALS: BP 154/79; PULSE 63; TEMP 98.9
[2016-06-15 08:18] LABS: Basophils % (A) 1 %; CH 29.4; CHCM 34.5; Eosinophils # (A) 0.1 k/uL (0-0.7); Eosinophils % (A) 2 %; HCT 36.9 % (34.0-46.0); HDW 2.93; HGB 12.6 gm/dL (11.4-16.0); Luc # (Auto) 0.06; Luc % (Auto) 1; Lymphocytes # (A) 1.3 k/uL (1.0-4.8); Lymphocytes % (A) 28 %; MCH 29.1 pg (25.0-35.0); MCHC 34.2 g/dL (31.0-37.0); MCV 85.3 fL (80.0-100.0); Mean Platelet Volume 7.3; Monocytes # (A) 0.2 k/uL (0-1.0); Monocytes % (A) 4 %; Neutrophils % (A) 64 %; RBC 4.32 m/uL (3.80-5.40); RDW 12.7 % (11.5-15.5); WBC 4.7 k/uL (3.8-10.6); WBC (Perox) 5.02
[2016-06-15] MEDS: SUCRALFATE 1 GM TAB PO SCH ×2 (08:18→12:12)
[2016-06-15] MEDS: HYDROcodone/APAP 15 ML SOLUTION PO PRN ×2 (08:18→13:52)
[2016-06-15] MEDS: PANTOPRAZOLE 40 MG/10 ML VIAL IV SCH (08:19)
--- NOTE | 2016-06-15 14:42 | P.PN ---
Progress Note - Text Patient reports nausea improved with scopolamine patch. Pain improved. Discharge instruction including increase omeprazole described. Follow-up next week in the bariatric center.
--- NOTE | 2016-06-16 09:20 | P.PN ---
Subjective Principal diagnosis: Epigastric abdominal pain Patient reports nausea improved with scopolamine patch. Pain improved. She is tolerating diet. She is eager to go home. Objective - Vital Signs Vital signs: Vital Signs Temp 98.9 F 06/15/16 08:00 Pulse 63 06/15/16 08:00 Resp 16 06/15/16 08:00 BP 154/79 06/15/16 08:00 Pulse Ox 99 06/15/16 08:00 Intake & Output 06/15/16 06/16/16 06/16/16 18:59 06:59 18:59 Intake Total 600 Balance 600 Weight 142.1 kg Intake: Oral 600 Other: Voiding Method Toilet # Voids 1 - Exam GENERAL: Well developed and in no acute distress. Pleasant. HEENT: No sclera icterus. Extraocular movements grossly intact. Moist buccal mucosa. Head is atraumatic, normocephalic. Hears conversational speech. No nasal drainage. NECK: Supple without lymphadenopathy. No JV distention. CHEST: Non-labored respirations and equal bilateral excursions. CARDIOVASCULAR: Tachycardic. Palpable 2+ radial pulses. ABDOMEN: Soft. Nondistended. Resolved epigastric tenderness. No peritonitis. MUSCULOSKELETAL: No clubbing, cyanosis or edema. NEUROLOGIC: No focal or lateralizing signs. PSYCH: Alert and oriented to person, place and time. 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 Scopolamine patches for discharge home. 2. Oral pain medications has been advised. 3. Will follow-up in the bariatric Center in 5 days. 4. I reviewed her findings of gastric ulcer whereby increase of omeprazole twice daily was advised. 5. Upper endoscopy with balloon dilatation as needed pending symptomatic resolution. 6. Discharge home.
--- NOTE | 2016-06-16 09:22 | P.DS ---
Providers Date of admission: 06/13/16 14:45 Expected date of discharge: 06/14/16 Attending physician: Suad Sharif Primary care physician: Suad Sharif - Discharge Diagnosis(es) (1) Epigastric abdominal pain Status: Acute (2) Nausea & vomiting Status: Acute (3) Inadequate dietary intake of protein Status: Acute (4) Diverticulosis Status: Chronic (5) BMI 45.0-49.9, adult Status: Acute (6) Morbid (severe) obesity due to excess calories Status: Chronic (7) Sleep apnea, obstructive Status: Chronic (8) Thyroid disease Status: Chronic (9) Bariatric surgery status Status: Acute (10) Gastric stenosis Status: Acute Hospital Course: The patient presented to the bariatric clinic after developing epigastric abdominal pain for approximately 4 days. Her history is significant for previous upper endoscopy one week ago with balloon dilatation. She reports inability to tolerate liquids including her protein intake. She was admitted for dehydration including CT of the abdomen and pelvis that demonstrated no evidence of leak. She was started on proton pump inhibitors for ulcer of the gastric pouch as well as Carafate. An upper endoscopy was performed demonstrating gastric stricture and confirmed ulcer. She was started on scopolamine patch with IV fluid hydration and her symptoms improved. Prior to discharge her abdominal pain had improved. She was tolerating diet. Pertinent Studies: CT of the abdomen and pelvis demonstrated no inflammatory changes along the gastric pouch. Evidence of diverticulosis without diverticulitis. Procedures: Upper endoscopy Patient Condition at Discharge: Stable Plan - Discharge Summary New Discharge Prescriptions: HYDROcodone/APAP [Bracey Elixir 7.5-325Mg/15Ml] 15 ml PO Q6HR PRN #480 ml PRN Reason: Pain Omeprazole 40 mg PO BID #30 capsule. Scopolamine 1.5MG/72Hr Patch [TransDerm Scop] 1 patch TRANSDERM Q72H #4 patch Discharge Medication List Omeprazole 40 mg PO DAILY #90 capsule. 04/19/16 [Rx] Calcium Citrate (Unknown Dose) 1 dose PO DAILY 06/05/16 [History] Multivitamins, Thera [Multivitamin] 1 tab PO DAILY 06/05/16 [History] Ergocalciferol [Vitamin D2] 50,000 unit PO Q7D 06/13/16 [History] HYDROcodone/APAP [Bracey Elixir 7.5-325Mg/15Ml] 15 ml PO Q6HR PRN #480 ml [Rx] Omeprazole 40 mg PO BID #30 capsule.dr 06/15/16 [Rx] Scopolamine 1.5MG/72Hr Patch [TransDerm Scop] 1 patch TRANSDERM Q72H #4 patch [Rx] Follow up Appointment(s)/Referral(s): Suad Sharif MD [Primary Care Provider] - 06/20/16 (Bariatric Center) Patient Instructions/Handouts: Peptic Ulcer (GEN) Discharge Disposition: HOME SELF-CARE
== END 2016-06-15 15:14 | disposition home or self-care (01) ==
LOC: 3OBS 14:45
PROVIDERS: ADMIT Surgery Plastic and Reconstructive Surgery; ATTEND Surgery Plastic and Reconstructive Surgery
DX: K25.9 Gastric ulcer, unspecified as acute or chronic, without hemorrhage or perforation (principal); K28.3 Acute gastrojejunal ulcer without hemorrhage or perforation; K31.89 Other diseases of stomach and duodenum; R10.13 Epigastric pain; E66.01 Morbid (severe) obesity due to excess calories; Z68.42 Body mass index [BMI] 45.0-49.9, adult; E86.0 Dehydration; G47.33 Obstructive sleep apnea (adult) (pediatric); K57.90 Diverticulosis of intestine, part unspecified, without perforation or abscess without bleeding; E03.9 Hypothyroidism, unspecified; R13.10 Dysphagia, unspecified; Z98.84 Bariatric surgery status; R11.2 Nausea with vomiting, unspecified; E46 Unspecified protein-calorie malnutrition
CPT/HCPCS: 80053; 80048; 83735 ×3; 84100; 85025 ×3; 81025; 74177; 43235; G0378 ×3; G0379; J2765 ×2; J2405 ×2; J1170 ×3; J3475; Q9967; J2704; C9113 ×3; 96361; 96375; 96376; 99153

== ENCOUNTER → 2016-06-13 | Outpatient (CLI) | payer BC ==
[2016-06-13 14:37] VITALS: BP 149/92; PULSE 69; TEMP 98; BMI 46.7
--- NOTE | 2016-07-22 19:11 | P.PN ---
Progress Note - Text DATE OF SERVICE: 06/13/2016 CHIEF COMPLAINT: Follow up gastric bypass. HISTORY OF PRESENT ILLNESS: Bisi Allen is a very pleasant 26-year-old female, status post gastric bypass on 04/18/2016. She is approximately almost two months out. She had troubles with her surgery particularly with chronic dysphagia. Now she comes in with abdominal discomfort and pain. At her height of 5 foot 8-1/2 inches, her ideal body weight is 163 pounds. Her highest weight was 366 pounds. Today she comes in weighing 312 pounds. She has lost approximately 54 pounds in 2 months. Percent excess weight loss is already 27%. Body mass index is reduced from 55 down to 46.8. Total BMI point reduction is 8.2. She has lost another 18 pounds in one month. PHYSICAL EXAM: VITAL SIGNS: 98.0, 69, 149/92, 5 feet 8-1/2, 312 pounds. Body mass index of 46.8. ABDOMEN: Soft, mild discomfort along the epigastrium. No palpable incisional hernias. All wounds completely granulated. MUSCULOSKELETAL: No clubbing, cyanosis, or edema. GENERAL: Well developed female in no acute distress. HEENT: No scleral icterus. Extraocular movements intact grossly intact. NECK: Supple without lymphadenopathy. CHEST: Nonlabored respirations. Equal bilateral excursions. CARDIOVASCULAR: Regular rate and rhythm. NEURO: No focal or lateralizing signs. Cranial nerves II through XII within normal limits. PSYCH: Appropriate affect. Alert and oriented times to person, place and time. ASSESSMENT: 1. Morbid obesity due to excess calories. 2. Body mass index reduced from 55 down to 46.8. 3. Status post Raissa-en-Y gastric bypass. 4. Dysphagia, epigastric abdominal pain. 5. Dehydration. 6. History of dysphagia. PLAN: 1. Given the severity of her epigastric abdominal pain including history of dysphagia. I have recommended observation. 2. Oral intake is suboptimal, I recommend IV fluid hydration. 3. Also recommend CT of the abdomen and pelvis with oral and IV contrast for her epigastric abdominal pain as intra-abdominal leak cannot be excluded. 4. Recommend aggressive correction of any underlying electrolyte dyscrasias. 5. Recommend a full bariatric panel. 6. Also recommend upper endoscopy for further evaluation and management.
== END | disposition home or self-care (01) ==
LOC: BARWHC3 13:10
PROVIDERS: ATTEND Surgery Plastic and Reconstructive Surgery
DX: Z48.815 Encounter for surgical aftercare following surgery on the digestive system (principal); E66.01 Morbid (severe) obesity due to excess calories; Z68.42 Body mass index [BMI] 45.0-49.9, adult; K95.09 Other complications of gastric band procedure; R13.19 Other dysphagia; E86.0 Dehydration; Z98.84 Bariatric surgery status
CPT/HCPCS: 99211

== ENCOUNTER 2016-06-20 09:04 | Day surgery (SDC) | payer BC ==
[2016-06-19 08:50] VITALS: BMI 47.1
--- NOTE | 2016-06-20 07:41 | P.GSHP ---
History of Present Illness H&P Date: 06/20/16 CHIEF COMPLAINT: GERD HISTORY OF PRESENT ILLNESS: The patient is a 26-year-old female who presents reports gastroesophageal reflux disease. Upper endoscopy was offered for further evaluation and management. PAST MEDICAL HISTORY: Please see list. PAST SURGICAL HISTORY: Please see list. MEDICATIONS: Please see list. ALLERGIES: Please see list. SOCIAL HISTORY: No illicit drug use FAMILY HISTORY: No reports of Crohn disease or ulcerative colitis. REVIEW OF ORGAN SYSTEMS: CONSTITUTIONAL: No reports of fevers or chills. GI: Denies any blood in stools or constipation. PHYSICAL EXAM: VITAL SIGNS: Stable GENERAL: Well-developed and pleasant in no acute distress. HEENT: No scleral icterus. Extraocular movements grossly intact. Moist buccal mucosa. NECK: Supple without lymphadenopathy. CHEST: Unlabored respirations. Equal bilateral excursions. CARDIOVASCULAR: Regular rate and rhythm. Distal 2+ pulses. ABDOMEN: Soft, nondistended. MUSCULOSKELETAL: No clubbing, cyanosis, or edema. ASSESSMENT: 1. Gastroesophageal reflux disease PLAN: 1. Recommend proceeding with an upper endoscopy Past Medical History Past Medical History: Hypertension, Thyroid Disorder Additional Past Medical History / Comment(s): HX OF DIVERTICULITIS (2010), BORDERLINE HTN., STATES FOOD DOES NOT WANT TO STAY DOWN- SPITTING UP. History of Any Multi-Drug Resistant Organisms: None Reported Past Surgical History: Bariatric Surgery, Cholecystectomy, Hernia Repair, Tonsillectomy Additional Past Surgical History / Comment(s): EGD 03/07/16, 05/21/16. , АНДРЕЙ-EN -Y GASTRIC BYPASS (04/18/16) Past Anesthesia/Blood Transfusion Reactions: Family History of Problems w/ Anesthesia, Motion Sickness, Postoperative Nausea & Vomiting (PONV) Additional Past Anesthesia/Blood Transfusion Reaction / Comment(s): IMMEDIATE FAMILY ALSO HAVE PONV. Past Psychological History: No Psychological Hx Reported Smoking Status: Never smoker Past Alcohol Use History: None Reported Past Drug Use History: None Reported - Past Family History Father Family Medical History: No Reported History Mother Family Medical History: No Reported History Medications and Allergies Home Medications Medication Instructions Recorded Confirmed Type Multivitamins, Thera [Multivitamin] 1 tab PO DAILY 06/05/16 06/19/16 History Ergocalciferol [Vitamin D2] 50,000 unit PO Q7D 06/13/16 06/19/16 History Calcium Citrate 250 mg PO DAILY 06/19/16 06/19/16 History Allergies Allergy/AdvReac Type Severity Reaction Status Date / Time venom-honey bee Allergy Swelling Verified 06/19/16 08:44 [bee venom (honey bee)] gluten AdvReac Abdominal Verified 06/19/16 08:44 Pain
[~2016-06-20 09:04] MED LIST changes: -LIDOCAINE 1% 20 ML VIAL (10MG/ML) FOR IV START INTRADERMA PRN
[2016-06-20 10:42] VITALS: RESP 16; TEMP 97
[2016-06-20] MEDS ORDERED: LIDOCAINE 1% 20 ML VIAL (10MG/ML) FOR IV START INTRADERMA ONE (10:42)
[2016-06-20] MEDS ORDERED: ONDANSETRON 4 MG/2 ML VIAL IVP ONE ×2 (10:50→12:26)
[2016-06-20] MEDS ORDERED: PROPOFOL 10 MG/ML 20 ML VIAL IV ONE (11:42)
--- NOTE | 2016-06-20 12:03 | P.PCN ---
Date of Procedure: 06/20/16 Description of Procedure: PREOPERATIVE DIAGNOSIS: Dysphagia. Nausea with vomiting. History of gastrojejunal stricture. POSTOPERATIVE DIAGNOSIS: Dysphagia. Nausea with vomiting. Morbid obesity. Gastrojejunal stricture with gastric stenosis, 8 mm. OPERATION: Esophagogastrojejunoscopy with balloon dilatation to 18 mm. SURGEON: Suad Sharif MD ANESTHESIA: MAC. INDICATIONS: The patient is a 26-year-old female who presents with a history of dysphagia, gastric bypass including nausea and vomiting and dysphagia. Benefits and risks of the procedure were described. Informed consent was obtained. DESCRIPTION: The patient was brought into the endoscopy suite and laid in the left lateral decubitus position. After a timeout was confirmed, the procedure was initiated. An Olympus gastroscope was passed along the posterior oropharynx down to the distal esophagus where the squamocolumnar junction was unremarkable. The gastric pouch was entered. A gastrojejunal stricture of 8 mm was found as the pediatric gastroscope was 8.6 mm in size. A InMobi balloon dilator was placed through the scope. Final insufflation up to 18 mm was performed with a total of 2 minutes. The scope was advanced up to 60 cm from the incisors into the Raissa limb. The mucosa of the gastrojejunal anastomosis was intact. No chronic gastrojejunal marginal ulcer was encountered. No full-thickness injury was encountered. The GI tract was desufflated. The patient tolerated the procedure well. FINDINGS: Stricture of 8 mm encountered. No chronic gastrojejunal ulceration encountered. Successful balloon dilatation to 18 mm. RECOMMENDATIONS: Continue omeprazole. Upper endoscopy as needed. Plan - Discharge Summary Discharge Medication List Multivitamins, Thera [Multivitamin] 1 tab PO DAILY 06/05/16 [History] Ergocalciferol [Vitamin D2] 50,000 unit PO Q7D 06/13/16 [History] HYDROcodone/APAP [[place] Elixir 7.5-325Mg/15Ml] 15 ml PO Q6HR PRN #480 ml [Rx] Omeprazole 40 mg PO BID #30 capsule. 06/15/16 [Rx] Scopolamine 1.5MG/72Hr Patch [TransDerm Scop] 1 patch TRANSDERM Q72H #4 patch [Rx] Calcium Citrate 250 mg PO DAILY 06/19/16 [History]
--- NOTE | 2016-06-20 12:40 | XR ---
EXAMINATION TYPE: XR chest 1V DATE OF EXAM: 06/20/2016 12:22 PM COMPARISON: CXR dated 12/16/2015. HISTORY: Esophageal dilatation. TECHNIQUE: Single AP portable upright view of the chest is obtained. FINDINGS: Low lung volumes are redemonstrated. There is no focal air space opacity, pleural effusio n, or pneumothorax seen. The cardiac silhouette size is within normal limits. The osseous structur es are intact. IMPRESSION: No evidence of complication related to recent esophageal dilatation.
[2016-06-20 12:41] VITALS: BP 160/92; PULSE 95
== END 2016-06-20 13:18 | disposition home or self-care (01) ==
LOC: ORWHC2ENDO 09:04
PROVIDERS: ATTEND Surgery Plastic and Reconstructive Surgery
DX: K21.9 Gastro-esophageal reflux disease without esophagitis (principal); K56.69 Other intestinal obstruction; K31.89 Other diseases of stomach and duodenum; E66.01 Morbid (severe) obesity due to excess calories; Z68.42 Body mass index [BMI] 45.0-49.9, adult; Z91.030 Bee allergy status; Z91.02 Food additives allergy status; Z79.899 Other long term (current) drug therapy; Z98.84 Bariatric surgery status
CPT/HCPCS: 81025; 84703; 71010; 43245; J2405; J2704; 43249; 99153

== ENCOUNTER → 2016-07-12 | Outpatient (CLI) | payer BC ==
[2016-07-12 09:21] VITALS: BP 107/67; PULSE 64; RESP 16; TEMP 97.8; BMI 44.1
--- NOTE | 2016-08-16 05:51 | P.PN ---
Progress Note - Text DATE OF SERVICE: 07/12/2016 CHIEF COMPLAINT: Follow up gastric bypass. HISTORY OF PRESENT ILLNESS: Bisi Allen is a 26-year-old female, status post gastric bypass on 04/18/2016. She has had troubles with a stricture and dysphagia, which have now spontaneously resolved. She is off all medications relating to her blood pressure. No reports of gastroesophageal reflux disease. Her highest weight for her 5-foot 8-1/2-inch frame was 366 pounds. Today she comes in weighing 294 pounds. She has lost 72 pounds in approximately 3 months. Percent excess weight loss is 36%. Body mass index is reduced from 55 down to 44.1. BMI point reduction is 10.8. She has lost another 18 pounds since her last visit a month ago. PHYSICAL EXAM: VITAL SIGNS: 97.8, 64, 16, 107/67; 5 feet 8-1/2 inches, 294 pounds. Body mass index of 44.1. ABDOMEN: Soft, nontender. No palpable incisional hernias. Mild panniculitis. MUSCULOSKELETAL: No clubbing, cyanosis, or edema. GENERAL: Well developed female in no acute distress. HEENT: No scleral icterus. Extraocular movements intact grossly intact. NECK: Supple without lymphadenopathy. CHEST: Nonlabored respirations. Equal bilateral excursions. CARDIOVASCULAR: Regular rate and rhythm. NEURO: No focal or lateralizing signs. Cranial nerves II through XII within normal limits. PSYCH: Appropriate affect. Alert and oriented times to person, place and time. LABS: Hemoglobin normal at 12.6. White count normal at 4.7. Rest of the electrolytes were within normal limits. ASSESSMENT: 1. Morbid obesity due to excess calories. 2. Body mass index reduced from 55 down to 44.1. 3. Status post Raissa-en-Y gastric bypass. 4. History of gastrojejunal stricture with dysphagia resolved. 5. Gastroesophageal reflux, resolved. 6. Hypertensive heart disease, resolved. 7. Previous history of diverticulitis. PLAN: 1. Clinically, her dysphagia has now resolved. 2. Recommend omeprazole in the interim. 3. Continue with multivitamin. 4. Now she may follow her every 3 month cycle whereby her next followup visit is pending for September 2016 or sooner should she have any problems. 5. Recommend goal protein intake of over 75 g daily.
== END | disposition home or self-care (01) ==
LOC: BARWHC3 09:07
PROVIDERS: ATTEND Surgery Plastic and Reconstructive Surgery
DX: Z48.815 Encounter for surgical aftercare following surgery on the digestive system (principal); Z71.3 Dietary counseling and surveillance; E66.01 Morbid (severe) obesity due to excess calories; E21.1 Secondary hyperparathyroidism, not elsewhere classified; E89.1 Postprocedural hypoinsulinemia; D50.8 Other iron deficiency anemias; E44.0 Moderate protein-calorie malnutrition; E55.9 Vitamin D deficiency, unspecified; K74.1 Hepatic sclerosis; N19 Unspecified kidney failure; K50.90 Crohn's disease, unspecified, without complications; Z98.84 Bariatric surgery status
CPT/HCPCS: 99211

== ENCOUNTER 2016-08-19 22:21 | Emergency (ER) | payer BC ==
[2016-08-19] MEDS ORDERED: EPINEPHrine 1 MG/ML 1 ML AMP SQ ONE (22:24)
[2016-08-19] MEDS ORDERED: SODIUM CHLORIDE 0.9% 500 ML IV ONE (22:25)
[2016-08-19] MEDS ORDERED: methylPREDNISolone SOD SUCCI 125 MG/2 ML VIAL IV STA (22:25)
[2016-08-19] MEDS ORDERED: diphenhydrAMINE 50 MG/ML 1 ML VIAL IVP STA (22:25)
[2016-08-19] MEDS ORDERED: FAMOTIDINE 20 MG/2 ML VIAL IV STA (22:26)
[2016-08-19] MEDS ORDERED: IPRATROPIUM-ALBUTEROL 3 ML NEB INHALATION STA (22:28)
--- NOTE | 2016-08-19 22:28 | ED ---
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 Patient states she was stung somewhere on 1929 today. Patient states after that she started having some upper lip swelling and felt a sore tongue was getting swollen. Patient states she took Benadryl and then she started noticing she was having a little bit harder time to breathe and she felt as though her throat might be closing off. Patient decided to come to the emergency department at this time. Patient denies any lightheadedness dizziness or near syncopal episode. Patient denies any chest pain or palpitations. Patient denies any nausea or vomiting per patient denies any hives at this time or any rashes at this time - Related Data Home Medications Medication Instructions Recorded Confirmed Multivitamins, Thera [Multivitamin] 1 tab PO DAILY 06/05/16 06/20/16 Ergocalciferol [Vitamin D2] 50,000 unit PO Q7D 06/13/16 06/20/16 Calcium Citrate 250 mg PO DAILY 06/19/16 06/20/16 Previous Rx's Medication Instructions Recorded Omeprazole 40 mg PO BID #30 capsule. 06/15/16 Scopolamine 1.5MG/72Hr Patch 1 patch TRANSDERM Q72H #4 patch 08/13/16 [TransDerm Scop] EPINEPHrine (Auto Inject) [Epipen] 0.3 mg IM ONCE PRN #2 syringe 08/20/16 predniSONE 40 mg PO DAILY #6 tab 08/20/16 Allergies Allergy/AdvReac Type Severity Reaction Status Date / Time venom-honey bee Allergy Swelling Verified 07/13/16 09:21 [bee venom (honey bee)] gluten AdvReac Abdominal Verified 07/13/16 09:21 Pain Review of Systems ROS Statement: Those systems with pertinent positive or pertinent negative responses have been documented in the HPI. ROS Other: All systems not noted in ROS Statement are negative. Past Medical History Past Medical History: Hypertension, Thyroid Disorder Additional Past Medical History / Comment(s): HX OF DIVERTICULITIS (2010), BORDERLINE HTN., STATES FOOD DOES NOT WANT TO STAY DOWN- SPITTING UP. History of Any Multi-Drug Resistant Organisms: None Reported Past Surgical History: Bariatric Surgery, Cholecystectomy, Hernia Repair, Tonsillectomy Additional Past Surgical History / Comment(s): EGD 03/07/16, 05/21/16. , АНДРЕЙ-EN -Y GASTRIC BYPASS (04/18/16) Past Anesthesia/Blood Transfusion Reactions: Family History of Problems w/ Anesthesia, Motion Sickness, Postoperative Nausea & Vomiting (PONV) Additional Past Anesthesia/Blood Transfusion Reaction / Comment(s): IMMEDIATE FAMILY ALSO HAVE PONV. Past Psychological History: No Psychological Hx Reported Smoking Status: Never smoker Past Alcohol Use History: None Reported Past Drug Use History: None Reported - Past Family History Father Family Medical History: No Reported History Mother Family Medical History: No Reported History General Exam - General Exam Comments Initial Comments: GENERAL: Patient is well-developed and well-nourished. Patient is nontoxic and well- hydrated and is in mild distress. ENT: Neck is soft and supple. No significant lymphadenopathy is noted. Oropharynx is clear. Moist mucous membranes. Neck has full range of motion without eliciting any pain. Upper lip is mildly swollen tongue is not obviously swollen EYES: The sclera were anicteric and conjunctiva were pink and moist. Extraocular movements were intact and pupils were equal round and reactive to light. Eyelids were unremarkable. PULMONARY: Patient has diminished breath sounds but no wheezing is heard at this time CARDIOVASCULAR: There is a regular rate and rhythm without any murmurs gallops or rubs. SKIN: Skin is clear with no lesions or rashes and otherwise unremarkable. NEUROLOGIC: Patient is alert and oriented x3. Cranial nerves II through XII are grossly intact. Motor and sensory are also intact. Normal speech, volume and content. Symmetrical smile. MUSCULOSKELETAL: Normal extremities with adequate strength and full range of motion. LYMPHATICS: No significant lymphadenopathy is noted PSYCHIATRIC: Normal psychiatric evaluation. Patient is mildly anxious Course Vital Signs 08/19/16 08/19/16 08/19/16 22:36 22:39 22:41 Temperature 97.5 F L Pulse Rate 72 74 78 Respiratory 22 Rate Blood Pressure 165/84 O2 Sat by Pulse 100 Oximetry 08/19/16 08/19/16 08/19/16 22:48 23:18 23:40 Temperature 97.0 F L Pulse Rate 72 63 70 Respiratory 20 18 18 Rate Blood Pressure 156/77 158/89 O2 Sat by Pulse 100 100 98 Oximetry 08/20/16 00:14 Temperature Pulse Rate 76 Respiratory 18 Rate Blood Pressure 149/72 O2 Sat by Pulse 99 Oximetry Medical Decision Making - Medical Decision Making Patient came in and was not moving much air and she stated her throat was closing off. I gave the patient epi subcu as well as Solu-Medrol and Pepcid and Benadryl IV. Patient also received a breathing treatment. I went back into the room to reevaluate the patient she stated she was having no symptoms at this time aside from being tired from the Benadryl. Patient states is the exact same symptom she has every time she stung. Critical Care Time Critical Care Time: Yes Total Critical Care Time: 35 Disposition Clinical Impression: Anaphylaxis Disposition: HOME SELF-CARE Condition: Good Instructions: Anaphylaxis (ED) Prescriptions: EPINEPHrine (Auto Inject) [Epipen] 0.3 mg IM ONCE PRN #2 syringe PRN Reason: Difficulty breathing predniSONE 40 mg PO DAILY #6 tab Referrals: Dhara Barreto MD [Primary Care Provider] - 1-2 days Time of Disposition: 00:30
[2016-08-19 23:20] VITALS: RESP 18
[2016-08-20 00:45] VITALS: BP 131/63; PULSE 73; TEMP 97.3
== END 2016-08-20 00:45 | disposition home or self-care (01) ==
LOC: EC 22:21
DX: T78.2XXA Anaphylactic shock, unspecified, initial encounter (principal); I10 Essential (primary) hypertension; E07.9 Disorder of thyroid, unspecified; Z79.899 Other long term (current) drug therapy; Z91.030 Bee allergy status; Z91.048 Other nonmedicinal substance allergy status
CPT/HCPCS: 99283; 96374; 96375 ×2; 96361; 96372; 94640; J0171; J1200; J2930

== ENCOUNTER 2016-09-14 22:09 | Emergency (ER) | payer BC ==
[2016-09-14 22:51] VITALS: RESP 18
[2016-09-14] MEDS ORDERED: SODIUM CHLORIDE 0.9% 1,000 ML IV ONE (23:52)
[2016-09-14] MEDS ORDERED: ONDANSETRON 4 MG/2 ML VIAL IVP STA (23:52)
[2016-09-14] MEDS ORDERED: HYDROmorphone 1 MG/ML 1 ML SYRINGE IVP STA (23:52)
--- NOTE | 2016-09-14 23:57 | ED ---
Abdominal Pain HPI - General Chief Complaint: Abdominal Pain Stated Complaint: Abd Pain Time Seen by Provider: 09/14/16 23:43 Source: patient, RN notes reviewed Mode of arrival: ambulatory Limitations: no limitations - History of Present Illness Initial Comments: Patient is a 26-year-old female presents emergency room for evaluation abdominal pain. Patient states she had a gastric bypass done on 04/18/[address] Sharif. Patient states that over the past few days been having increasing pain. Patient states she has been having increasing pain tonight that would not subside. Patient states that she took a hydrocodone with no relief of symptoms. Patient states she's been nauseous. Patient states she has a history of cholecystectomy. Patient denies any other abdominal surgeries. Patient states that she was told by her surgeon that if she started having this type of pain to come to the emergency room immediately. Patient denies constipation or diarrhea. Patient's chest pain or shortness of breath. Patient denies headache or dizziness. Patient denies fevers or chills. - Related Data Home Medications Medication Instructions Recorded Confirmed Multivitamins, Thera [Multivitamin] 1 tab PO DAILY 06/05/16 06/20/16 Calcium Citrate 250 mg PO DAILY 06/19/16 06/20/16 Hydrocodone/Acetaminophen 1 tab PO Q6HR PRN 09/14/16 09/14/16 [Hydrocodon-Acetamin 7.5-325/15] Previous Rx's Medication Instructions Recorded EPINEPHrine (Auto Inject) [Epipen] 0.3 mg IM ONCE PRN #2 syringe 08/20/16 Allergies Allergy/AdvReac Type Severity Reaction Status Date / Time venom-honey bee Allergy Swelling Verified 07/13/16 09:21 [bee venom (honey bee)] gluten AdvReac Abdominal Verified 07/13/16 09:21 Pain Review of Systems ROS Statement: Those systems with pertinent positive or pertinent negative responses have been documented in the HPI. ROS Other: All systems not noted in ROS Statement are negative. Past Medical History Past Medical History: Hypertension, Thyroid Disorder Additional Past Medical History / Comment(s): HX OF DIVERTICULITIS (2010), BORDERLINE HTN., STATES FOOD DOES NOT WANT TO STAY DOWN- SPITTING UP. History of Any Multi-Drug Resistant Organisms: None Reported Past Surgical History: Bariatric Surgery, Cholecystectomy, Hernia Repair, Tonsillectomy Additional Past Surgical History / Comment(s): EGD 03/07/16, 05/21/16. , АНДРЕЙ-EN -Y GASTRIC BYPASS (04/18/16) Past Anesthesia/Blood Transfusion Reactions: Family History of Problems w/ Anesthesia, Motion Sickness, Postoperative Nausea & Vomiting (PONV) Additional Past Anesthesia/Blood Transfusion Reaction / Comment(s): IMMEDIATE FAMILY ALSO HAVE PONV. Past Psychological History: No Psychological Hx Reported Smoking Status: Never smoker Past Alcohol Use History: None Reported Past Drug Use History: None Reported - Past Family History Father Family Medical History: No Reported History Mother Family Medical History: No Reported History General Exam - General Exam Comments Initial Comments: sitting in exam room, uncomfortable secondary to pain Limitations: no limitations General appearance: alert, in no apparent distress Head exam: Present: atraumatic, normocephalic, normal inspection Eye exam: Present: normal appearance ENT exam: Present: normal exam Neck exam: Present: normal inspection Respiratory exam: Present: normal lung sounds bilaterally. Absent: respiratory distress Cardiovascular Exam: Present: regular rate, normal rhythm, normal heart sounds GI/Abdominal exam: Present: soft, tenderness (upper midepigastric pain), normal bowel sounds. Absent: distended, guarding, rebound, rigid Extremities exam: Present: normal inspection Back exam: Present: normal inspection Neurological exam: Present: alert, oriented X3, CN II-XII intact, normal gait Psychiatric exam: Present: normal affect, normal mood Skin exam: Present: warm, dry, intact, normal color. Absent: rash Course Vital Signs 09/14/16 09/15/16 22:47 02:16 Temperature 98.6 F 97.8 F Pulse Rate 80 69 Respiratory 18 18 Rate Blood Pressure 166/105 129/73 O2 Sat by Pulse 100 98 Oximetry Medical Decision Making - Medical Decision Making Patient is a 26-year-old female presents to the emergency room for evaluation of abdominal pain. Labs show no concerning findings. Abdominal x-ray shows no concerning findings. Patient states she is feeling better after pain medications given. Advised patient to follow-up with her surgeon on Saturday. Patient states she understands everything that was discussed with her. Return parameters discussed. Case discussed with Dr. Khan. - Lab Data Result diagrams: 09/15/16 00:15 09/15/16 00:15 Lab Results 09/15/16 09/15/1617 Range/Units 00:15 00:15 00:15 WBC 8.4 (3.8-10.6) k/uL RBC 4.51 (3.80-5.40) m/uL Hgb 13.6 (11.4-16.0) gm/dL Hct 38.9 (34.0-46.0) % MCV 86.2 (80.0-100.0) fL MCH 30.2 (25.0-35.0) pg MCHC 35.0 (31.0-37.0) g/dL RDW 12.6 (11.5-15.5) % Plt Count 241 (150-450) k/uL Neutrophils % 56 % Lymphocytes % 34 % Monocytes % 5 % Eosinophils % 3 % Basophils % 1 % Neutrophils # 4.7 (1.3-7.7) k/uL Lymphocytes # 2.9 (1.0-4.8) k/uL Monocytes # 0.4 (0-1.0) k/uL Eosinophils # 0.2 (0-0.7) k/uL Basophils # 0.1 (0-0.2) k/uL Sodium 141 (137-145) mmol/L Potassium 4.1 (3.5-5.1) mmol/L Chloride 106 (98-107) mmol/L Carbon Dioxide 23 (22-30) mmol/L Anion Gap 12 mmol/L BUN 17 (7-17) mg/dL Creatinine 0.70 (0.52-1.04) mg/dL Est GFR (MDRD) Af Amer >60 (>60 ml/min/1.73 sqM) Est GFR (MDRD) Non-Af >60 (>60 ml/min/1.73 sqM) Glucose 83 (74-99) mg/dL Calcium 9.5 (8.4-10.2) mg/dL Total Bilirubin 0.5 (0.2-1.3) mg/dL AST 26 (14-36) U/L ALT 32 (9-52) U/L Alkaline Phosphatase 54 (38-126) U/L Total Protein 6.9 (6.3-8.2) g/dL Albumin 4.4 (3.5-5.0) g/dL Amylase 50 (30-110) U/L Lipase 306 H (23-300) U/L Urine Color Urine Appearance (Clear) Urine pH (5.0-8.0) Ur Specific Ceres (1.001-1.035) Urine Protein (Negative) Urine Glucose (UA) (Negative) Urine Ketones (Negative) Urine Blood (Negative) Urine Nitrite (Negative) Urine Bilirubin (Negative) Urine Urobilinogen (<2.0) mg/dL Ur Leukocyte Esterase (Negative) Ur Squamous Epith Cells (0-4) /hpf Calcium Oxalate Crystal (None) /hpf Urine Bacteria (None) /hpf Urine Mucus (None) /hpf Urine HCG, Qual Not Detected (Not Detectd) 09/15/16 Range/Units 00:15 WBC (3.8-10.6) k/uL RBC (3.80-5.40) m/uL Hgb (11.4-16.0) gm/dL Hct (34.0-46.0) % MCV (80.0-100.0) fL MCH (25.0-35.0) pg MCHC (31.0-37.0) g/dL RDW (11.5-15.5) % Plt Count (150-450) k/uL Neutrophils % % Lymphocytes % % Monocytes % % Eosinophils % % Basophils % % Neutrophils # (1.3-7.7) k/uL Lymphocytes # (1.0-4.8) k/uL Monocytes # (0-1.0) k/uL Eosinophils # (0-0.7) k/uL Basophils # (0-0.2) k/uL Sodium (137-145) mmol/L Potassium (3.5-5.1) mmol/L Chloride (98-107) mmol/L Carbon Dioxide (22-30) mmol/L Anion Gap mmol/L BUN (7-17) mg/dL Creatinine (0.52-1.04) mg/dL Est GFR (MDRD) Af Amer (>60 ml/min/1.73 sqM) Est GFR (MDRD) Non-Af (>60 ml/min/1.73 sqM) Glucose (74-99) mg/dL Calcium (8.4-10.2) mg/dL Total Bilirubin (0.2-1.3) mg/dL AST (14-36) U/L ALT (9-52) U/L Alkaline Phosphatase (38-126) U/L Total Protein (6.3-8.2) g/dL Albumin (3.5-5.0) g/dL Amylase (30-110) U/L Lipase (23-300) U/L Urine Color Yellow Urine Appearance Cloudy H (Clear) Urine pH 5.5 (5.0-8.0) Ur Specific Ceres 1.030 (1.001-1.035) Urine Protein Trace H (Negative) Urine Glucose (UA) Negative (Negative) Urine Ketones Negative (Negative) Urine Blood Negative (Negative) Urine Nitrite Negative (Negative) Urine Bilirubin Negative (Negative) Urine Urobilinogen 2.0 (<2.0) mg/dL Ur Leukocyte Esterase Negative (Negative) Ur Squamous Epith Cells 7 H (0-4) /hpf Calcium Oxalate Crystal Many H (None) /hpf Urine Bacteria Occasional H (None) /hpf Urine Mucus Many H (None) /hpf Urine HCG, Qual (Not Detectd) - Radiology Data Radiology results: report reviewed, image reviewed Disposition Clinical Impression: Abdominal pain Disposition: HOME SELF-CARE Condition: Good Instructions: Abdominal Pain (ED) Additional Instructions: Continue taking pain medications as needed. Please follow up with surgeon in 24- 48 hours. If any new symptom arises, symptoms worsen, return to ER as soon as possible. Referrals: Dhara Barreto MD [Primary Care Provider] - 1-2 days Suad Sharif MD [STAFF PHYSICIAN] - 1-2 days Time of Disposition: 02:47
[2016-09-15 00:37] LABS: Basophils # (A) 0.1 k/uL (0-0.2); Basophils % (A) 1 %; CH 30.7; CHCM 35.7; Eosinophils # (A) 0.2 k/uL (0-0.7); Eosinophils % (A) 3 %; HCT 38.9 % (34.0-46.0); HDW 2.75; HGB 13.6 gm/dL (11.4-16.0); Luc # (Auto) 0.17; Luc % (Auto) 2; Lymphocytes # (A) 2.9 k/uL (1.0-4.8); Lymphocytes % (A) 34 %; MCH 30.2 pg (25.0-35.0); MCV 86.2 fL (80.0-100.0); Mean Platelet Volume 6.7; Monocytes # (A) 0.4 k/uL (0-1.0); Monocytes % (A) 5 %; Neutrophils # (A) 4.7 k/uL (1.3-7.7); Neutrophils % (A) 56 %; RBC 4.51 m/uL (3.80-5.40); RDW 12.6 % (11.5-15.5); WBC 8.4 k/uL (3.8-10.6)
[2016-09-15 00:43] LABS: Appearance,Urine Cloudy (Clear); Bacteria,Urine Occasional /hpf; Bilirubin,Urine Negative (Negative); Calcium Oxalate Crystals,Urine Many /hpf; Glucose,Urine (UA) Negative (Negative); Ketones,Urine Negative (Negative); Leukocyte Esterase,Urine Negative (Negative); Mucus,Urine Many /hpf; Nitrite,Urine Negative (Negative); PH, Urine 5.5 (5.0-8.0); Particle Count 21071; Protein,Urine Trace (Negative); Squamous Epithelial Cell,Urine 7 /hpf (0-4); UA Billing (MACRO vs. MICRO) MICRO
[2016-09-15 00:57] LABS: ALT 32 U/L (9-52); AST 26 U/L (14-36); Alkaline Phosphatase 54 U/L (38-126); Amylase 50 U/L (30-110); Anion Gap 12 mmol/L; Blood Urea Nitrogen 17 mg/dL (7-17); Calcium 9.5 mg/dL (8.4-10.2); Carbon Dioxide 23 mmol/L (22-30); Chloride 106 mmol/L (98-107); Glucose 83 mg/dL (74-99); Non-African American GFR(MDRD) >60 (>60 ml/min/1.73 sqM); Potassium 4.1 mmol/L (3.5-5.1); Sodium 141 mmol/L (137-145); Total Bilirubin 0.5 mg/dL (0.2-1.3); Total Protein 6.9 g/dL (6.3-8.2)
--- NOTE | 2016-09-15 02:06 | XR ---
EXAM: XR ABDOMEN INDICATION: 26-year-old female with pain. COMPARISON: CT abdomen and pelvis 06/13/2016. FINDINGS: Single frontal view of the abdomen demonstrates a nonobstructive, nonspecific bowel gas pattern. Suture material projects of the left upper quadrant. Cholecystectomy clips present in the right upper quadrant. No evidence of organomegaly, abnormal calcifications or obvious soft tissue masses. The osseous structures are intact. IMPRESSION: Nonobstructive, nonspecific bowel gas pattern.
[2016-09-15] MEDS: KETOROLAC 30 MG/ML 1 ML VIAL IVP STA ×2 (02:12→02:14)
[2016-09-15] MEDS ORDERED: HYDROmorphone 1 MG/ML 1 ML SYRINGE IVP STA (02:14)
[2016-09-15 02:19] VITALS: BP 129/73; PULSE 69; TEMP 97.8
== END 2016-09-15 03:15 | disposition home or self-care (01) ==
LOC: EC 22:09
DX: R10.13 Epigastric pain (principal); R11.0 Nausea; Z53.20 Procedure and treatment not carried out because of patient's decision for unspecified reasons; Z79.899 Other long term (current) drug therapy; Z91.030 Bee allergy status; Z91.018 Allergy to other foods; Z98.84 Bariatric surgery status; Z87.19 Personal history of other diseases of the digestive system; Z98.890 Other specified postprocedural states; Z90.49 Acquired absence of other specified parts of digestive tract
CPT/HCPCS: 99284; 96374; 96375; 96376; 96361; 36415; 80053; 82150; 83690; 85025; 81001; 81025; 87086; 74020; J2405; J1170

== ENCOUNTER 2016-09-16 20:17 | Inpatient (IN) | payer BC ==
[2016-09-16] MEDS ORDERED: METOCLOPRAMIDE 5 MG/ML 2 ML VIAL IVP PRN (20:29)
[2016-09-16] MEDS ORDERED: NALOXONE 0.4 MG/ML 1 ML VIAL IV PRN (20:29)
[2016-09-16] MEDS ORDERED: RX INFO: IV CONTRAST WAS GIVEN 1 EACH MISC MISCELLANE PRN (20:31)
[2016-09-16] MEDS ORDERED: SODIUM CHLORIDE 0.9% 2,000 ML IV ONE (20:34)
[2016-09-16] MEDS ORDERED: HYOSCYAMINE SULFATE 0.125 MG TAB PO STA (20:42)
[2016-09-16] MEDS ORDERED: DICYCLOMINE 10 MG/ML 2 ML AMP IM STA (20:42)
[2016-09-16] MEDS ORDERED: ACETAMINOPHEN IV (For NPO) 1,000 MG in EMPTY BAG 1 BAG IVPB ONE (22:00)
[2016-09-16] MEDS: HYDROmorphone 1 MG/ML 1 ML SYRINGE IVP PRN (22:16)
[2016-09-16] MEDS: PANTOPRAZOLE 40 MG/10 ML VIAL IV SCH (22:16)
[2016-09-16] MEDS: IOHEXOL 350 MG/ML 25 ML BOTTLE (ORAL USE) PO PRN (22:41)
[2016-09-16 22:57] LABS: Basophils % (A) 1 %; CH 30.8; CHCM 35.6; Eosinophils # (A) 0.1 k/uL (0-0.7); Eosinophils % (A) 2 %; HCT 36.3 % (34.0-46.0); HDW 2.72; HGB 12.9 gm/dL (11.4-16.0); Luc # (Auto) 0.13; Luc % (Auto) 2; Lymphocytes # (A) 2.3 k/uL (1.0-4.8); Lymphocytes % (A) 32 %; MCH 30.9 pg (25.0-35.0); MCHC 35.6 g/dL (31.0-37.0); MCV 86.7 fL (80.0-100.0); Mean Platelet Volume 6.5; Monocytes # (A) 0.4 k/uL (0-1.0); Monocytes % (A) 5 %; Neutrophils # (A) 4.3 k/uL (1.3-7.7); Neutrophils % (A) 59 %; RBC 4.19 m/uL (3.80-5.40); RDW 12.3 % (11.5-15.5); WBC 7.3 k/uL (3.8-10.6); WBC (Perox) 7.23
[2016-09-16 23:04] LABS: ALT 27 U/L (9-52); AST 21 U/L (14-36); Alkaline Phosphatase 56 U/L (38-126); Amylase 42 U/L (30-110); Anion Gap 10 mmol/L; Blood Urea Nitrogen 11 mg/dL (7-17); Calcium 9.4 mg/dL (8.4-10.2); Carbon Dioxide 26 mmol/L (22-30); Chloride 105 mmol/L (98-107); Glucose 82 mg/dL (74-99); Non-African American GFR(MDRD) >60 (>60 ml/min/1.73 sqM); Potassium 3.9 mmol/L (3.5-5.1); Sodium 141 mmol/L (137-145); Total Bilirubin 0.6 mg/dL (0.2-1.3); Total Protein 6.6 g/dL (6.3-8.2)
[2016-09-17] MEDS: IOHEXOL 350 MG/ML 25 ML BOTTLE (ORAL USE) PO PRN
[2016-09-17] MEDS: SODIUM CHLORIDE 0.9% 1,000 ML IV SCH ×3 (01:12→17:56)
[2016-09-17] MEDS: HYDROmorphone 1 MG/ML 1 ML SYRINGE IVP PRN ×6 (01:12→21:03)
--- NOTE | 2016-09-17 02:05 | CT ---
EXAM: CT Abdomen and Pelvis With Intravenous Contrast CLINICAL HISTORY: Reason: abdominal pain, gastric bypass TECHNIQUE: Axial computed tomography images of the abdomen and pelvis with intravenous contrast. Coronal and sagittal reformats were obtained. 92nd delayed images through the kidneys were obtained. CTDI is 36.10 MGy and DLP is 2796.90 MGy-cm. This CT exam was performed using one or more of the following dose reduction techniques: automated exposure control, adjustment of the mA and/or kV according to patient size, and/or use of iterative reconstruction technique. COMPARISON: No relevant prior studies available. FINDINGS: Lower thorax: No acute findings. ABDOMEN: Liver: Unremarkable. No mass. Gallbladder and bile ducts: Gallbladder is surgically absent. No ductal dilation. Pancreas: Unremarkable. No mass. No ductal dilation. Spleen: Unremarkable. No splenomegaly. Adrenals: Unremarkable. No mass. Kidneys and ureters: Unremarkable. No solid mass. No hydronephrosis. Stomach and bowel: Status post gastric bypass. No evidence of bowel obstruction. No mucosal thickening. Few scattered colonic diverticula without evidence of diverticulitis. Appendix: No findings to suggest acute appendicitis. PELVIS: Bladder: Unremarkable. Reproductive: Unremarkable as visualized. ABDOMEN and PELVIS: Intraperitoneal space: Unremarkable. No free air. No significant fluid collection. Bones/joints: No acute fracture. Vasculature: Unremarkable. No abdominal aortic aneurysm. Lymph nodes: Unremarkable. No enlarged lymph nodes. IMPRESSION: No acute findings. Status post gastric bypass without evidence of bowel obstruction.
[2016-09-17] MEDS: ENOXAPARIN 40 MG/0.4 ML SYRINGE SQ SCH (07:58)
[2016-09-17] MEDS: PANTOPRAZOLE 40 MG/10 ML VIAL IV SCH (07:58)
[2016-09-17] MEDS: ONDANSETRON 4 MG/2 ML VIAL IVP PRN ×3 (09:02→21:03)
--- NOTE | 2016-09-17 09:53 | P.GSHP ---
<Shira Viera - Last Filed: 09/17/16 09:40> History of Present Illness H&P Date: 09/17/16 26-year-old female presented presented with a chief complaint of developing mid epigastric pain. Patient stated the symptoms started last Saturday points to the mid abdominal wall above the umbilicus as to the reference point. Patient states it is a constant sharp burning stabbing type pain associated with a nausea sensation decrease appetite. Patient stated she became concerned the pain would not resolve would not go away. Patient stated that she did come into the emergency room on Saturday this week was seen in the emergency room had imaging done and was discharged home. Patient stated that she did take one of her Vicodin's but there was no relief. Patient does have a history of gastric bypass surgery done in [place] [address] Sharif . Patient presented with the above-mentioned symptoms.. Patient states the pain continues to persist seems worse with movement Patient states she feels nauseated has vomited once this morning. This been no hematemesis. Patient states is passing gas no frequent stooling patient states there's been no fever chills. No dizziness lightheadedness no chest pain no shortness of breath patient states that the patient has been instructed by the surgeon if she had any abdominal pain of this type pain to come into the emergency room Patient did have a CAT scan of the abdomen pelvis with IV contrast done on September 17. In summary no acute findings. No findings to suggest acute appendicitis. Status post gastric bypass. No evidence of a bowel obstruction. No evidence of diverticulitis. Gallbladder is surgically absent. The unit liver shows no mass the white count on admission was 7.3 and hemoglobin 12.9 liver enzymes normal amylase lipase normal. The lipase is 196. Amylase 42. Patient continues to report having abdominal pain abdomen is soft no facial grimacing with palpitation to the abdominal wall. Patient stated she vomited once this morning clear secretions no hematemesis passing gas rectally no stooling - Review of Systems Comment: Essentially unremarkable except as mentioned in the present illness Past Medical History Past Medical History: Hypertension, Thyroid Disorder Additional Past Medical History / Comment(s): HX OF DIVERTICULITIS (2010), History of Any Multi-Drug Resistant Organisms: None Reported Past Surgical History: Bariatric Surgery, Cholecystectomy, Hernia Repair, Tonsillectomy Additional Past Surgical History / Comment(s): EGD 03/07/16, 05/21/16. , АНДРЕЙ-EN -Y GASTRIC BYPASS (04/18/16) Past Anesthesia/Blood Transfusion Reactions: Family History of Problems w/ Anesthesia, Motion Sickness, Postoperative Nausea & Vomiting (PONV) Additional Past Anesthesia/Blood Transfusion Reaction / Comment(s): IMMEDIATE FAMILY ALSO HAVE PONV. Past Psychological History: No Psychological Hx Reported Smoking Status: Never smoker Past Alcohol Use History: None Reported Past Drug Use History: None Reported - Past Family History Father Family Medical History: No Reported History Mother Family Medical History: No Reported History Medications and Allergies Home Medications Medication Instructions Recorded Confirmed Type Multivitamins, Thera [Multivitamin] 1 tab PO DAILY 06/05/16 09/16/16 History Calcium Citrate 250 mg PO DAILY 06/19/16 09/16/16 History HYDROcodone/APAP 5-325MG [[place] 1 tab PO DAILY PRN 09/16/16 09/16/16 History 5-325] Loratadine [Claritin] 10 mg PO DAILY 09/16/16 09/16/16 History Omeprazole 20 mg PO BID 09/16/16 09/16/16 History Allergies Allergy/AdvReac Type Severity Reaction Status Date / Time venom-honey bee Allergy Severe Anaphylaxis Verified 09/16/16 21:56 [bee venom (honey bee)] gluten AdvReac Abdominal Verified 09/16/16 21:56 Pain Surgical - Exam Vital Signs Temp Pulse Resp BP Pulse Ox 97.6 F 58 L 16 156/94 99 09/16/16 21:25 09/16/16 21:25 09/16/16 21:25 09/16/16 21:25 09/16/16 21:25 GENERAL APPEARANCE: 26-year-old female patient is alert, oriented, in no acute distress. Pleasant cooperative talkative VITAL SIGNS: Reviewed HEENT: Head is normocephalic and atraumatic. Pupils are equal and reactive. The nares are patent. Oropharynx is clear without lesions. NECK: Supple without lymphadenopathy. Traches midline. HEART: S1, S2. Regular rate and rhythm. No murmur noted denying chest pain LUNGS: No crackles or wheezes are heard. Air movement bilaterally ABDOMEN: Soft, nondistended with good bowel sounds. No peritoneal signs. No palpable organomegaly or masses. No facial grimacing with palpitation to the abdominal wall points to the mid epigastric area reference point where the pain as above the umbilicus no cellulitis no redness to the abdominal wall diffuse tenderness EXTREMITIES: Normal skin color and turgor. No cyanosis, rash, ulceration, clubbing or edema. Radial pedal pulses are 2/4 bilaterally. NEUROLOGICAL: No focal deficits. Strength and sensation are grossly intact. Results - Labs 09/16/16 22:09 09/16/16 22:09 Diabetes panel 09/16/16 Range/Units 22:09 Sodium 141 (137-145) mmol/L Potassium 3.9 (3.5-5.1) mmol/L Chloride 105 (98-107) mmol/L Carbon Dioxide 26 (22-30) mmol/L BUN 11 (7-17) mg/dL Creatinine 0.70 (0.52-1.04) mg/dL Glucose 82 (74-99) mg/dL Calcium 9.4 (8.4-10.2) mg/dL AST 21 (14-36) U/L ALT 27 (9-52) U/L Alkaline Phosphatase 56 (38-126) U/L Total Protein 6.6 (6.3-8.2) g/dL Albumin 4.2 (3.5-5.0) g/dL Calcium panel 09/16/16 Range/Units 22:09 Calcium 9.4 (8.4-10.2) mg/dL Albumin 4.2 (3.5-5.0) g/dL Pituitary panel 09/16/16 Range/Units 22:09 Sodium 141 (137-145) mmol/L Potassium 3.9 (3.5-5.1) mmol/L Chloride 105 (98-107) mmol/L Carbon Dioxide 26 (22-30) mmol/L BUN 11 (7-17) mg/dL Creatinine 0.70 (0.52-1.04) mg/dL Glucose 82 (74-99) mg/dL Calcium 9.4 (8.4-10.2) mg/dL Adrenal panel 09/16/16 Range/Units 22:09 Sodium 141 (137-145) mmol/L Potassium 3.9 (3.5-5.1) mmol/L Chloride 105 (98-107) mmol/L Carbon Dioxide 26 (22-30) mmol/L BUN 11 (7-17) mg/dL Creatinine 0.70 (0.52-1.04) mg/dL Glucose 82 (74-99) mg/dL Calcium 9.4 (8.4-10.2) mg/dL Total Bilirubin 0.6 (0.2-1.3) mg/dL AST 21 (14-36) U/L ALT 27 (9-52) U/L Alkaline Phosphatase 56 (38-126) U/L Total Protein 6.6 (6.3-8.2) g/dL Albumin 4.2 (3.5-5.0) g/dL Assessment and Plan Plan: Impression Present on admission epigastric abdominal pain with nausea vomiting unclear etiology Severe morbid obesity due to excessive calories status post gastric bypass March 2016 History of obstructive sleep apnea Morbid obesity BMI 40 Chronic thyroid disease EGD May 2015 demonstrating gastric stricture and confirmed ulcer the gastric pouch Chronic gastroduodenal anastomosis ulcer Plan Keep nothing by mouth until surgery evaluates with further recommendations Pain control PPI as ordered protonix 40 IV daily Continue Reglan 10 mg IV every 6 hours when necessary IV fluid at 100 and hour The above dictated assessment and findings were discussed with dr sharif. Impression and the plan of care have been dictated as directed. Shira Viera nurse practitioner acting as a scribe for dr sharif . <Suad Sharif N - Last Filed: 09/17/16 14:54> Surgical - Exam Vital Signs Temp Pulse Resp BP Pulse Ox 97.0 F L 68 16 152/90 96 09/16/16 08:00 09/16/16 08:00 09/16/16 08:00 09/16/16 08:00 09/16/16 08:00 Results - Labs 09/16/16 22:09 09/16/16 22:09 Diabetes panel 09/16/16 Range/Units 22:09 Sodium 141 (137-145) mmol/L Potassium 3.9 (3.5-5.1) mmol/L Chloride 105 (98-107) mmol/L Carbon Dioxide 26 (22-30) mmol/L BUN 11 (7-17) mg/dL Creatinine 0.70 (0.52-1.04) mg/dL Glucose 82 (74-99) mg/dL Calcium 9.4 (8.4-10.2) mg/dL AST 21 (14-36) U/L ALT 27 (9-52) U/L Alkaline Phosphatase 56 (38-126) U/L Total Protein 6.6 (6.3-8.2) g/dL Albumin 4.2 (3.5-5.0) g/dL Calcium panel 09/16/16 Range/Units 22:09 Calcium 9.4 (8.4-10.2) mg/dL Albumin 4.2 (3.5-5.0) g/dL Pituitary panel 09/16/16 Range/Units 22:09 Sodium 141 (137-145) mmol/L Potassium 3.9 (3.5-5.1) mmol/L Chloride 105 (98-107) mmol/L Carbon Dioxide 26 (22-30) mmol/L BUN 11 (7-17) mg/dL Creatinine 0.70 (0.52-1.04) mg/dL Glucose 82 (74-99) mg/dL Calcium 9.4 (8.4-10.2) mg/dL Adrenal panel 09/16/16 Range/Units 22:09 Sodium 141 (137-145) mmol/L Potassium 3.9 (3.5-5.1) mmol/L Chloride 105 (98-107) mmol/L Carbon Dioxide 26 (22-30) mmol/L BUN 11 (7-17) mg/dL Creatinine 0.70 (0.52-1.04) mg/dL Glucose 82 (74-99) mg/dL Calcium 9.4 (8.4-10.2) mg/dL Total Bilirubin 0.6 (0.2-1.3) mg/dL AST 21 (14-36) U/L ALT 27 (9-52) U/L Alkaline Phosphatase 56 (38-126) U/L Total Protein 6.6 (6.3-8.2) g/dL Albumin 4.2 (3.5-5.0) g/dL Assessment and Plan Plan: Patient continues to have abdominal pain along the epigastrium. Additional she had emesis earlier today. We'll proceed with diagnostic laparoscopy with lysis of adhesions and possible endoscopy with balloon dilation.
--- NOTE | 2016-09-17 14:54 | P.HPADDEND ---
H&P Addendum H&P Addendum Date: 09/17/16 She has persistent abdominal pain. We'll proceed with diagnostic laparoscopy with upper endoscopy.
[2016-09-17] MEDS ORDERED: IV FLUID CONTINUATION 1,000 ML IV ONE (15:03)
[2016-09-17] MEDS ORDERED: DEXAMETHASONE SOD PHOS (MDV) 100 MG/10 ML VIAL IVP ONE (15:04)
[2016-09-17] MEDS ORDERED: fentaNYL (PF) 50 MCG/ML 2 ML AMP ONE (15:16)
[2016-09-17] MEDS ORDERED: LIDOCAINE 1% INJ 10MG/ML (20 ML MDV) ONE (15:16)
[2016-09-17] MEDS ORDERED: GLYCOPYRROLATE 0.2 MG/ML 2 ML VIAL ONE (15:16)
[2016-09-17] MEDS ORDERED: NEOSTIGMINE 1 MG/ML 10 ML VIAL ONE (15:16)
[2016-09-17] MEDS ORDERED: ROCURONIUM BROMIDE 10 MG/ML 10 ML VIAL IV ONE (15:16)
[2016-09-17] MEDS ORDERED: MIDAZOLAM 2 MG/2 ML VIAL ONE (15:16)
[2016-09-17] MEDS ORDERED: PROPOFOL 10 MG/ML 20 ML VIAL IV ONE (15:16)
[2016-09-17] MEDS ORDERED: SUCCINYLCHOLINE CHLORIDE VIAL 200 MG/10 ML VIAL IV ONE (15:16)
[2016-09-17] MEDS ORDERED: ceFAZolin 3 GM in SODIUM CHLORIDE 0.9% 100 ML IVPB ONE (15:30)
[2016-09-17] MEDS ORDERED: BUPIVACAIN-EPI 0.25%-1:200,000 30 ML VIAL SQ ONE (15:36)
[2016-09-17] MEDS ORDERED: LACTATED RINGERS 1,000 ML IV ONE (16:00)
--- NOTE | 2016-09-17 16:42 | P.OP ---
Date of Procedure: 09/17/16 Preoperative Diagnosis: Postoperative Diagnosis: Procedure(s) Performed: Implants: Indications for Procedure: Operative Findings: Description of Procedure: SURGEON: MAVERICK FLANNERY MD ROTATING EQUIPMENT SPECIALIST: None. PREOPERATIVE DIAGNOSES: 1. Acute abdominal pain, epigastrium. 2. History of gastric bypass. 3. History of gastrojejunal stricture. 4. History of diverticulitis. 5. Intractable nausea and vomiting. 6. Status post massive weight loss 104 pounds in 5 months. POSTOPERATIVE DIAGNOSES: 1. Acute abdominal pain, epigastrium. 2. History of gastric bypass. 3. History of gastrojejunal stricture. 4. History of diverticulitis. 5. Intractable nausea and vomiting. 6. Status post massive weight loss 104 pounds in 5 months. 7. Intra-abdominal adhesions, greater omentum to abdominal wall. PROCEDURES PERFORMED: 1. Diagnostic laparoscopy. 2. Laparoscopic lysis of adhesions of abdominal wall and greater omentum omentum , left lower quadrant, right upper quadrant. ANESTHESIA: General with 30 mL 0.25% Marcaine with epinephrine. ESTIMATED BLOOD LOSS: 1 mL. SPECIMENS REMOVED: None. COMPLICATIONS: None. OPERATIVE FINDINGS: 1. Peritoneal adhesion and greater omentum to abdominal wall left upper quadrant corresponding to patient's location of the pain. 2. Adhesion along the right upper quadrant creating a large mesenteric defect and internal hernia resected to avoid risk of bowel obstruction. 3. Complete scarring and closure of Carrera defect. 4. Complete scarring and closure of jejunojejunostomy mesenteric defect. INDICATIONS: The patient is a 26-year-old female who presents with History of gastric bypass March 2016. She had previous epigastric abdominal pain secondary to gastrojejunal stricture and ulcer. She comes in with a different character of pain with pulling almost stabbing and burning sensation involving the just to the left of the upper abdomen. She states the pain is progressive in nature over the last 3-4 days. She reports intractable nausea and vomiting as a result. Multiple diagnostic studies were also obtained including endoscopies were completed. Given the severity of her symptoms, diagnostic laparoscopy with lysis of adhesions was described. Benefits and risks, including possibility of open technique were described at length. Informed consent was obtained. DESCRIPTION OF PROCEDURE: In the preoperative suit, the area of her abdominal pain was marked with indelible marker. Patient was brought to the operating room, laid in supine position. After general induction, the abdomen was prepped and draped in standard sterile fashion. Prior to incision, a timeout protocol was confirmed with surgical team regarding patient's name including procedure to be performed. Preoperative medications including antibiotics were given. Additionally, bilateral SCDs including Lovenox was administered. A 5 mm laparoscopic trocar entry performed of the right upper quadrant after anesthetizing the skin with local anesthetic. The left side was avoided as this was also the area of her pain. The abdomen was insufflated to 15 mmHg pressure she tolerated well. Diagnostic laparoscopy demonstrated omental adhesion to the abdominal wall at the exact location of her pain including along the right upper quadrant near the epigastrium. No gross small bowel dilatation was encountered. The appendix was also investigated with minimal hyperemia however the patient denied any right lower quadrant abdominal pain. Two 5-mm trochars were placed along the left lateral abdominal wall. The lesions identified were sharply divided using Sonicision. As all adhesions to the abdominal wall were dressed, attention was now brought to investigation of her gastric bypass. The base of the cecum was without inflammation. The small bowel was investigated from the terminal ileum proximally. Along the ileum and distal jejunum, no interloop adhesions were identified. The small bowel was investigated to the jejunojejunostomy. No internal hernia was identified along the small bowel mesentery. In anterograde fashion, the gastric pouch including Raissa limb was investigated towards the jejunojejunostomy. No Carrera's defect or jejunojejunostomy mesenteric defect was identified. All previous internal hernias were scarred and closed from her initial surgery. No evidence of bowel obstruction or small bowel dilatation was found. Final inspection of the abdomen demonstrated adequate hemostasis including no enterotomies. All instruments and pneumoperitoneum were evacuated from the abdominal cavity. A total of 30 mL 0.25% Marcaine with epinephrine was infiltrated in all wounds for postop analgesia. Dermabond was applied to the skin after reapproximating the incisions with 4-0 Monocryl as described. At the end of the procedure, needle, sponge, and instrument count was verified correct by neurosurgical physician assistant. The patient had tolerated the procedure well, was taken to the postanesthesia care unit in stable condition. Intraoperative abdominal films were described and discussed with her family who were overall pleased with her level of care.
[2016-09-17] MEDS: HYDROcodone/APAP 5-325MG 1 EACH TAB PO PRN ×2 (17:56→22:56)
[2016-09-17 23:14] VITALS: RESP 16
[2016-09-18] MEDS: HYDROmorphone 1 MG/ML 1 ML SYRINGE IVP PRN (01:48)
[2016-09-18] MEDS: SODIUM CHLORIDE 0.9% 1,000 ML IV SCH (05:42)
[2016-09-18 07:24] VITALS: BP 151/90; TEMP 98.2
[2016-09-18] MEDS: HYDROcodone/APAP 5-325MG 1 EACH TAB PO PRN (07:49)
[2016-09-18] MEDS: ENOXAPARIN 40 MG/0.4 ML SYRINGE SQ SCH (07:52)
[2016-09-18] MEDS: PANTOPRAZOLE 40 MG/10 ML VIAL IV SCH (07:52)
[2016-09-18 09:10] VITALS: PULSE 71
--- NOTE | 2016-09-18 09:25 | P.DS ---
Providers Date of admission: 09/16/16 21:13 Expected date of discharge: 09/18/16 Attending physician: Suad Sharif Primary care physician: Suad Sharif - Discharge Diagnosis(es) (1) Peritoneal adhesions Current Visit: Yes Status: Acute (2) BMI 40.0-44.9, adult Current Visit: Yes Status: Acute (3) Morbid obesity Current Visit: Yes Status: Acute (4) Bariatric surgery status Current Visit: No Status: Acute (5) Epigastric abdominal pain Current Visit: No Status: Acute (6) Intractable nausea and vomiting Current Visit: No Status: Acute Hospital Course: POSTOPERATIVE DIAGNOSES: 1. Acute abdominal pain, epigastrium. 2. History of gastric bypass. 3. History of gastrojejunal stricture. 4. History of diverticulitis. 5. Intractable nausea and vomiting. 6. Status post massive weight loss 104 pounds in 5 months. 7. Intra-abdominal adhesions, greater omentum to abdominal wall. OPERATIVE FINDINGS: 1. Peritoneal adhesion and greater omentum to abdominal wall left upper quadrant corresponding to patient's location of the pain. 2. Adhesion along the right upper quadrant creating a large mesenteric defect and internal hernia resected to avoid risk of bowel obstruction. 3. Complete scarring and closure of Carrera defect. 4. Complete scarring and closure of jejunojejunostomy mesenteric defect. COURSE: The patient is a pleasant 26-year-old female who is now 6 months out from a gastric bypass. She has lost 105 pounds. Over the last 3-4 days she reported acute onset epigastric abdominal pain. She reported intractable nausea and vomiting. In fact she had presented to the emergency room approximately 3 days prior for similar complaints. Since her abdominal pain had worsened and for the concern of bowel obstruction the patient was admitted. Despite conservative management her pain continued to progress. Chemistries were unremarkable. CT of the abdomen and pelvis was unremarkable. The patient was taken to the operating room as she continued to have abdominal pain. Diagnostic laparoscopy was performed with findings of adhesions at the exact location of her pain. Lysis of adhesions was performed. Immediately postop, her pain had resolved. She was tolerating diet. Her pain was well controlled. Discharge instructions were reviewed. Follow up in the outpatient bariatric center in 1 week. Vital Signs Temp 98.2 F 09/18/16 07:23 Pulse 71 09/18/16 08:00 Resp 16 09/18/16 08:00 BP 151/90 09/18/16 07:23 Pulse Ox 97 09/18/16 07:23 Intake & Output 09/17/16 09/18/16 09/18/16 18:59 06:59 18:59 Intake Total 1450 1200 Output Total 1 Balance 1449 1200 Weight 119.295 kg Intake: IV 800 Intake, IV Titration 1200 Amount Sodium Chloride 0.9% 1, 1200 000 ml @ 100 mls/hr IV . Q10H [facility] Rx#:[id number] Oral 650 Output: Estimated Blood Loss 1 Other: Voiding Method Toilet # Voids 2 2 2 GENERAL: Well developed and in no acute distress. Pleasant. HEENT: No sclera icterus. Extraocular movements grossly intact. Moist buccal mucosa. Head is atraumatic, normocephalic. Hears conversational speech. No nasal drainage. NECK: Supple without lymphadenopathy. No JV distention. CHEST: Non-labored respirations and equal bilateral excursions. CARDIOVASCULAR: Regular rate and rhythm. Palpable 2+ radial pulses. ABDOMEN: Soft, nontender. Nondistended. Laparoscopic sites clean dry and intact. MUSCULOSKELETAL: No clubbing, cyanosis or edema. NEUROLOGIC: No focal or lateralizing signs. PSYCH: Appropriate affect. Alert and oriented to person, place and time. Pertinent Studies: CT of the abdomen and pelvis without free air or intra-abdominal pathology. Procedures: PROCEDURES PERFORMED: 1. Diagnostic laparoscopy. 2. Laparoscopic lysis of adhesions of abdominal wall and greater omentum omentum , left lower quadrant, right upper quadrant. Patient Condition at Discharge: Good Plan - Discharge Summary New Discharge Prescriptions: Hydrocodone/Acetaminophen [[place] 5-325] 1 - 2 each PO Q6HR PRN #30 tab PRN Reason: Pain Discharge Medication List Multivitamins, Thera [Multivitamin] 1 tab PO DAILY 06/05/16 [History] Calcium Citrate 250 mg PO DAILY 06/19/16 [History] EPINEPHrine (Auto Inject) [Epipen] 0.3 mg IM ONCE PRN #2 syringe 08/20/16 [Rx] HYDROcodone/APAP 5-325MG [[place] 5-325] 1 tab PO DAILY PRN 09/16/16 [History] Loratadine [Claritin] 10 mg PO DAILY 09/16/16 [History] Omeprazole 20 mg PO BID 09/16/16 [History] Hydrocodone/Acetaminophen [[place] 5-325] 1 - 2 each PO Q6HR PRN #30 tab 09/17/16 [Rx] Follow up Appointment(s)/Referral(s): Suad Sharif MD [Primary Care Provider] - 09/27/16 (Please confirm time at bariatric center) Patient Instructions/Handouts: Exploratory Laparoscopy (DC) Activity/Diet/Wound Care/Special Instructions: No lifting over 5 pounds in 2 weeks. May shower. No bath tub soaks. Discharge Disposition: HOME SELF-CARE
== END 2016-09-18 10:26 | disposition home or self-care (01) | DRG 336 ==
LOC: 3SUR 21:13
PROVIDERS: ADMIT Surgery Plastic and Reconstructive Surgery; ATTEND Surgery Plastic and Reconstructive Surgery
PROC: 0DNS4ZZ (ICD-10-PCS; principal; 2016-09-17 08:50)
DX: K66.0 Peritoneal adhesions (postprocedural) (postinfection) (principal); Z68.41 Body mass index [BMI] 40.0-44.9, adult; I10 Essential (primary) hypertension; R10.13 Epigastric pain; E07.9 Disorder of thyroid, unspecified; K46.9 Unspecified abdominal hernia without obstruction or gangrene; G47.33 Obstructive sleep apnea (adult) (pediatric); E66.01 Morbid (severe) obesity due to excess calories; R11.2 Nausea with vomiting, unspecified; Z98.84 Bariatric surgery status; Z79.899 Other long term (current) drug therapy; Z87.19 Personal history of other diseases of the digestive system; Z86.19 Personal history of other infectious and parasitic diseases; Z91.030 Bee allergy status; Z91.018 Allergy to other foods; Z79.891 Long term (current) use of opiate analgesic; Z90.49 Acquired absence of other specified parts of digestive tract; Z87.11 Personal history of peptic ulcer disease
CPT/HCPCS: 36415; 74020; 74177; 80053; 81001; 81025; 82150; 83690; 85025; 87086; 96361; 96374; 96375; 96376; 99284

== ENCOUNTER → 2016-09-27 | Outpatient (CLI) | payer BC ==
[2016-09-27 11:37] VITALS: BMI 43.4
[2016-09-27 12:14] VITALS: BP 107/67; PULSE 64; RESP 16; TEMP 97.8
--- NOTE | 2016-10-27 19:12 | P.PN ---
Progress Note - Text DATE OF CONSULTATION: 09/27/2016 CHIEF COMPLAINT: History of abdominal pain. HISTORY OF PRESENT ILLNESS: Bisi Allen is a 26-year-old female who is status post lysis of adhesions almost 2 weeks ago. She had presented with abdominal pain which is chronic. Intraoperative findings were consistent with adhesions which were lysed. She now presents with new onset left upper quadrant abdominal pain. She is passing flatus. She is having bowel movements. Her highest weight is 367 pounds. At her height of 5 feet 8.5 inches her ideal body weight is 163 pounds. Today she comes in weighing 289 pounds. She is 126 pounds overweight. Body mass index is reduced from 55.1 to 43.4. No reports of dysphagia. She has lost 78 pounds. Percent excess weight loss is 38% in 6 months. PHYSICAL EXAM: VITAL SIGNS: 5 feet 8.5 inches, 289 pounds. Body mass index 43.4. Vital Signs Temp 97.8 F 09/27/16 12:10 Pulse 64 09/27/16 12:10 Resp 16 09/27/16 12:10 BP 107/67 09/27/16 12:10 Pulse Ox GENERAL: Well-developed female in no acute distress. HEENT: No scleral icterus. Extraocular movements intact grossly intact. NECK: Supple without lymphadenopathy. CHEST: Nonlabored respirations. Equal bilateral excursions. CARDIOVASCULAR: Regular rate and rhythm. ABDOMEN: Protuberant, soft, laparoscopic sites clean dry and intact. No peritonitis. MUSCULOSKELETAL: No clubbing, cyanosis, or edema. NEURO: No focal or lateralizing signs. Cranial nerves II through XII within normal limits. PSYCH: Appropriate affect. Alert and oriented times to person, place and time. ASSESSMENT: 1. Morbid obesity due to excess calories. 2. Hypertension, resolved. 3. Obstructive sleep apnea, resolved. 4. Osteoarthritis bilateral ankles, improved. 5. Peritoneal adhesions. 6. Body mass index reduced from 55.1 down to 43.4. PLAN: 1. Recommend CT of the abdomen and pelvis with her new onset left upper quadrant abdominal pain. 2. In the interim, goal protein intake over 70 g daily 3. Continue with pain meds in the interim.
== END | disposition home or self-care (01) ==
LOC: BARWHC3 10:32
PROVIDERS: ATTEND Surgery Plastic and Reconstructive Surgery
DX: E66.01 Morbid (severe) obesity due to excess calories (principal); Z68.41 Body mass index [BMI] 40.0-44.9, adult; Z71.3 Dietary counseling and surveillance
CPT/HCPCS: 97803; 99211

== ENCOUNTER 2017-10-15 19:57 | Observation (INO) | payer BC ==
[2017-10-15] MEDS ORDERED: MORPHINE SULFATE 2 MG/ML SYRINGE IV STA (21:29)
[2017-10-15] MEDS ORDERED: PANTOPRAZOLE 40 MG/10 ML VIAL IVP STA (21:29)
[2017-10-15] MEDS ORDERED: ONDANSETRON 4 MG/2 ML VIAL IVP STA (21:29)
[2017-10-15] MEDS ORDERED: SODIUM CHLORIDE 0.9% 1,000 ML IV STA ×2 (21:29)
[2017-10-15] MEDS ORDERED: DICYCLOMINE 10 MG/ML 2 ML AMP IM STA (21:29)
[2017-10-15 21:38] LABS: Basophils # (A) 0.1 k/uL (0-0.2); Basophils % (A) 1 %; Eosinophils # (A) 0.1 k/uL (0-0.7); Eosinophils % (A) 2 %; HCT 37.6 % (34.0-46.0); HGB 13.3 gm/dL (11.4-16.0); Lymphocytes # (A) 1.9 k/uL (1.0-4.8); Lymphocytes % (A) 32 %; MCH 30.7 pg (25.0-35.0); MCHC 35.3 g/dL (31.0-37.0); MCV 86.9 fL (80.0-100.0); Mean Platelet Volume 6.9; Monocytes # (A) 0.4 k/uL (0-1.0); Monocytes % (A) 6 %; Neutrophils # (A) 3.4 k/uL (1.3-7.7); Neutrophils % (A) 57 %; Platelet Count 246 k/uL (150-450); RBC 4.33 m/uL (3.80-5.40); RDW 11.6 % (11.5-15.5)
[2017-10-15 21:47] LABS: ALT 31 U/L (9-52); AST 32 U/L (14-36); Albumin 4.4 g/dL (3.5-5.0); Alkaline Phosphatase 52 U/L (38-126); Amylase 53 U/L (30-110); Anion Gap 11 mmol/L; Blood Urea Nitrogen 14 mg/dL (7-17); Calcium 9.2 mg/dL (8.4-10.2); Carbon Dioxide 25 mmol/L (22-30); Chloride 103 mmol/L (98-107); Glucose 97 mg/dL (74-99); Lipase 341 U/L (23-300); Potassium 4.3 mmol/L (3.5-5.1); Sodium 139 mmol/L (137-145); Total Bilirubin 0.3 mg/dL (0.2-1.3); Total Protein 6.7 g/dL (6.3-8.2)
--- NOTE | 2017-10-15 21:56 | ED ---
General Adult HPI - General Chief complaint: Abdominal Pain Stated complaint: Abd Pain Time Seen by Provider: 10/15/17 21:08 Source: patient, RN notes reviewed, old records reviewed Mode of arrival: ambulatory Limitations: no limitations - History of Present Illness Initial comments: This is a 27-year-old female to the ER for evaluation regarding persistent chronic abdominal pain. Patient has history of - Related Data Home Medications Medication Instructions Recorded Confirmed Acetaminophen Tab [Tylenol Tab] 1,000 mg PO Q6HR PRN 10/15/17 10/15/17 Methocarbamol [Robaxin] 500 mg PO BID PRN 10/15/17 10/15/17 Potassium Chloride ER [K-Dur 10] 10 meq PO DAILY 10/15/17 10/15/17 Previous Rx's Medication Instructions Recorded EPINEPHrine (Auto Inject) [Epipen] 0.3 mg IM ONCE PRN #2 syringe 08/20/16 Allergies Allergy/AdvReac Type Severity Reaction Status Date / Time venom-honey bee Allergy Severe Anaphylaxis Verified 10/15/17 20:56 [bee venom (honey bee)] gluten AdvReac Abdominal Verified 10/15/17 20:56 Pain Review of Systems ROS Statement: Those systems with pertinent positive or pertinent negative responses have been documented in the HPI. ROS Other: All systems not noted in ROS Statement are negative. Past Medical History Past Medical History: Hypertension, Thyroid Disorder Additional Past Medical History / Comment(s): HX OF DIVERTICULITIS (2010), History of Any Multi-Drug Resistant Organisms: None Reported Past Surgical History: Bariatric Surgery, Cholecystectomy, Hernia Repair, Tonsillectomy Additional Past Surgical History / Comment(s): EGD 03/07/16, 05/21/16. , АНДРЕЙ-EN -Y GASTRIC BYPASS (04/18/16) Past Anesthesia/Blood Transfusion Reactions: Family History of Problems w/ Anesthesia, Motion Sickness, Postoperative Nausea & Vomiting (PONV) Additional Past Anesthesia/Blood Transfusion Reaction / Comment(s): IMMEDIATE FAMILY ALSO HAVE PONV. Past Psychological History: No Psychological Hx Reported Smoking Status: Never smoker Past Alcohol Use History: None Reported Past Drug Use History: None Reported - Past Family History Father Family Medical History: No Reported History Mother Family Medical History: No Reported History General Exam Limitations: no limitations General appearance: alert, in no apparent distress, obese Head exam: Present: atraumatic, normocephalic, normal inspection Eye exam: Present: normal appearance, PERRL, EOMI. Absent: scleral icterus, conjunctival injection, periorbital swelling ENT exam: Present: normal exam, mucous membranes moist Neck exam: Present: normal inspection. Absent: tenderness, meningismus, lymphadenopathy Respiratory exam: Present: normal lung sounds bilaterally. Absent: respiratory distress, wheezes, rales, rhonchi, stridor Cardiovascular Exam: Present: regular rate, normal rhythm, normal heart sounds. Absent: systolic murmur, diastolic murmur, rubs, gallop, clicks GI/Abdominal exam: Present: soft, normal bowel sounds. Absent: distended, tenderness, guarding, rebound, rigid Extremities exam: Present: normal inspection, full ROM, normal capillary refill. Absent: tenderness, pedal edema, joint swelling, calf tenderness Back exam: Present: normal inspection Neurological exam: Present: alert, oriented X3, CN II-XII intact Psychiatric exam: Present: normal affect, normal mood Skin exam: Present: warm, dry, intact, normal color. Absent: rash Course Vital Signs 10/15/17 10/15/17 20:04 21:28 Temperature 98.4 F Pulse Rate 79 68 Respiratory 16 19 Rate Blood Pressure 170/101 148/79 O2 Sat by Pulse 100 98 Oximetry - Reevaluation(s) Reevaluation #1: 10/15/17 21:55 Dr. Sharif, we'll keep patient for observation see in the morning Medical Decision Making - Medical Decision Making 27 female the ER with acute on chronic and recurrent abdominal pain. Colicky abdominal pain. Patient with history of bariatric surgery, cholecystectomy. Patient to be admitted under observation for surgical evaluation in the morning - Lab Data Result diagrams: 10/15/17 21:17 10/15/17 21:17 Lab Results 10/15/17 10/15/17 10/15/17 Range/Units 21:17 21:17 21:17 WBC 6.0 (3.8-10.6) k/uL RBC 4.33 (3.80-5.40) m/uL Hgb 13.3 (11.4-16.0) gm/dL Hct 37.6 (34.0-46.0) % MCV 86.9 (80.0-100.0) fL MCH 30.7 (25.0-35.0) pg MCHC 35.3 (31.0-37.0) g/dL RDW 11.6 (11.5-15.5) % Plt Count 246 (150-450) k/uL Neutrophils % 57 % Lymphocytes % 32 % Monocytes % 6 % Eosinophils % 2 % Basophils % 1 % Neutrophils # 3.4 (1.3-7.7) k/uL Lymphocytes # 1.9 (1.0-4.8) k/uL Monocytes # 0.4 (0-1.0) k/uL Eosinophils # 0.1 (0-0.7) k/uL Basophils # 0.1 (0-0.2) k/uL Sodium 139 (137-145) mmol/L Potassium 4.3 (3.5-5.1) mmol/L Chloride 103 (98-107) mmol/L Carbon Dioxide 25 (22-30) mmol/L Anion Gap 11 mmol/L BUN 14 (7-17) mg/dL Creatinine 0.80 (0.52-1.04) mg/dL Est GFR (CKD-EPI)AfAm >90 (>60 ml/min/1.73 sqM) Est GFR (CKD-EPI)NonAf >90 (>60 ml/min/1.73 sqM) Glucose 97 (74-99) mg/dL Plasma Lactic Acid Trey 0.9 (0.7-2.0) mmol/L Calcium 9.2 (8.4-10.2) mg/dL Total Bilirubin 0.3 (0.2-1.3) mg/dL AST 32 (14-36) U/L ALT 31 (9-52) U/L Alkaline Phosphatase 52 (38-126) U/L Total Protein 6.7 (6.3-8.2) g/dL Albumin 4.4 (3.5-5.0) g/dL Amylase 53 (30-110) U/L Lipase 341 H (23-300) U/L Disposition Clinical Impression: Abdominal colic Disposition: ADMITTED IP TO THIS HOSP Condition: Fair Is patient prescribed a controlled substance at d/c from ED?: No Referrals: None,Stated [Primary Care Provider] - 1-2 days
[2017-10-15 22:09] LABS: Appearance,Urine Clear (Clear); Bilirubin,Urine Negative (Negative); Blood,Urine Negative (Negative); Color,Urine Yellow; Glucose,Urine (UA) Negative (Negative); Ketones,Urine Negative (Negative); Leukocyte Esterase,Urine Negative (Negative); Nitrite,Urine Negative (Negative); PH, Urine 6.5 (5.0-8.0); Protein,Urine Negative (Negative); Specific Gravity,Urine 1.019 (1.001-1.035); Urobilinogen,Urine <2.0 mg/dL (<2.0)
[2017-10-15 22:56] VITALS: BMI 44.2
[2017-10-15] MEDS: DICYCLOMINE 10 MG CAP PO SCH (23:00)
[2017-10-16] MEDS: MORPHINE SULFATE 2 MG/ML SYRINGE IVP PRN ×5 (01:44→18:17)
[2017-10-16] MEDS: METOCLOPRAMIDE 5 MG/ML 2 ML VIAL IVP SCH ×4 (01:45→17:54)
[2017-10-16] MEDS: DICYCLOMINE 10 MG CAP PO SCH ×3 (09:06→21:08)
[2017-10-16] MEDS: PANTOPRAZOLE 40 MG/10 ML VIAL IVP SCH (09:07)
[2017-10-16] MEDS ORDERED: IOPAMIDOL-300 CONTRAST 30 ML VIAL (ORAL USE) PO PRN (10:01)
--- NOTE | 2017-10-16 13:06 | CT ---
EXAMINATION TYPE: CT abdomen pelvis w con DATE OF EXAM: 10/16/2017 COMPARISON: 09/17/2016 HISTORY: 27-year-old female abdominal pain TECHNIQUE: Contiguous axial scanning of the abdomen and pelvis following administration of 100 ml Iso anamika 300 IV contrast. Delayed images through the kidneys and coronal/sagittal reconstructions perform ed. CT DLP: 2624.70 mGycm Automated exposure control for dose reduction was used. FINDINGS: Heart normal size without pericardial effusion. Lung bases clear without pleural effusion. Liver mildly enlarged 19.6 cm craniocaudal artifacts due to patient's large body habitus. No definite focal liver lesion. No biliary ductal dilatation. Cholecystectomy clips. Adrenal glands, kidneys, and pancreas appear within normal limits. Spleen enlarged at 16.4 cm, coronal image 64. Postsurgical changes of Raissa-en-Y gastric bypass. No abnormal bowel dilatation. No abnormal extension of contrast into the excluded stomach. No mesenteric or retroperitoneal lymphadenopathy. Mild stool burden without pericolonic inflammatory change. Mild sigmoid diverticulosis is noted. Nor mal appendix is seen. Bladder urine distended. Anteverted uterus. Both ovaries are visualized. Trace cul-de-sac free fluid likely physiologic. No pelvic lymphadenopathy. Bones: Mild degenerative disc disease L4-L5 and L5-S1. IMPRESSION: 1. MILD HEPATOSPLENOMEGALY (LIVER 19.6 CM AND SPLEEN AT 16.4 CM). 2. STATUS POST RAISSA-EN-Y GASTRIC BYPASS. NO OBSTRUCTIVE CHANGES. 3. A FEW SMALL SIGMOID DIVERTICULA. 4. TRACE CUL-DE-SAC FREE FLUID LIKELY PHYSIOLOGIC.
--- NOTE | 2017-10-16 13:23 | P.GSHP ---
History of Present Illness H&P Date: 10/16/17 CHIEF COMPLAINT: Epigastric abdominal pain HISTORY OF PRESENT ILLNESS: The patient is a 27-year-old female who presents with nausea, vomiting, epigastric abdominal pain including inability to tolerate solid foods. She is a past gastric bypass patient. She has known history of previous gastric stricture. She reports worsening symptoms and is unable to tolerate diet. PAST MEDICAL HISTORY: Please see list. PAST SURGICAL HISTORY: Please see list. MEDICATIONS: Please see list. ALLERGIES: Please see list. SOCIAL HISTORY: No illicit drug use FAMILY HISTORY: No reports of Crohn disease or ulcerative colitis. REVIEW OF ORGAN SYSTEMS: CONSTITUTIONAL: No reports of fevers or chills. GI: Denies any blood in stools or constipation. PHYSICAL EXAM: VITAL SIGNS: Stable GENERAL: Well-developed and pleasant in no acute distress. HEENT: No scleral icterus. Extraocular movements grossly intact. Moist buccal mucosa. NECK: Supple without lymphadenopathy. CHEST: Unlabored respirations. Equal bilateral excursions. CARDIOVASCULAR: Regular rate and rhythm. Distal 2+ pulses. ABDOMEN: Soft, nondistended. Tender along the epigastrium. MUSCULOSKELETAL: No clubbing, cyanosis, or edema. ASSESSMENT: 1. Dysphagia. 2. Gastric stricture. 3. Abdominal pain, epigastric. PLAN: 1. CT of the abdomen pelvis pending. 2. Recommend upper endoscopy. 3. NPO at this time. Past Medical History Past Medical History: Hypertension, Thyroid Disorder Additional Past Medical History / Comment(s): HX OF DIVERTICULITIS (2010), History of Any Multi-Drug Resistant Organisms: None Reported Past Surgical History: Bariatric Surgery, Cholecystectomy, Hernia Repair, Tonsillectomy Additional Past Surgical History / Comment(s): EGD 03/07/16, 05/21/16. , АНДРЕЙ-EN -Y GASTRIC BYPASS (04/18/16) lysis of adhesions august 2016 Past Anesthesia/Blood Transfusion Reactions: Family History of Problems w/ Anesthesia, Motion Sickness, Postoperative Nausea & Vomiting (PONV) Additional Past Anesthesia/Blood Transfusion Reaction / Comment(s): IMMEDIATE FAMILY ALSO HAVE PONV. Past Psychological History: No Psychological Hx Reported Smoking Status: Never smoker Past Alcohol Use History: None Reported Past Drug Use History: None Reported - Past Family History Father Family Medical History: No Reported History Mother Family Medical History: No Reported History Medications and Allergies Home Medications Medication Instructions Recorded Confirmed Type EPINEPHrine (Auto Inject) [Epipen] 0.3 mg IM ONCE PRN #2 syringe 08/20/16 Rx Acetaminophen Tab [Tylenol Tab] 1,000 mg PO Q6HR PRN 10/15/17 10/15/17 History Methocarbamol [Robaxin] 500 mg PO BID PRN 10/15/17 10/15/17 History Potassium Chloride ER [K-Dur 10] 10 meq PO DAILY 10/15/17 10/15/17 History Allergies Allergy/AdvReac Type Severity Reaction Status Date / Time venom-honey bee Allergy Severe Anaphylaxis Verified 10/15/17 20:56 [bee venom (honey bee)] gluten AdvReac Abdominal Verified 10/15/17 20:56 Pain Surgical - Exam Vital Signs Temp Pulse Resp BP Pulse Ox 98.4 F 79 16 170/101 100 10/15/17 20:04 10/15/17 20:04 10/15/17 20:04 10/15/17 20:04 10/15/17 20:04 Results - Labs 10/15/17 21:17 10/15/17 21:17 Abnormal Lab Results - Last 24 Hours (Table) 10/15/17 Range/Units 21:17 Lipase 341 H (23-300) U/L Microbiology - Last 24 Hours (Table) 10/15/17 21:35 Urine Culture - Preliminary Urine,Voided Diabetes panel 10/15/17 Range/Units 21:17 Sodium 139 (137-145) mmol/L Potassium 4.3 (3.5-5.1) mmol/L Chloride 103 (98-107) mmol/L Carbon Dioxide 25 (22-30) mmol/L BUN 14 (7-17) mg/dL Creatinine 0.80 (0.52-1.04) mg/dL Glucose 97 (74-99) mg/dL Calcium 9.2 (8.4-10.2) mg/dL AST 32 (14-36) U/L ALT 31 (9-52) U/L Alkaline Phosphatase 52 (38-126) U/L Total Protein 6.7 (6.3-8.2) g/dL Albumin 4.4 (3.5-5.0) g/dL Calcium panel 10/15/17 Range/Units 21:17 Calcium 9.2 (8.4-10.2) mg/dL Albumin 4.4 (3.5-5.0) g/dL Pituitary panel 10/15/17 Range/Units 21:17 Sodium 139 (137-145) mmol/L Potassium 4.3 (3.5-5.1) mmol/L Chloride 103 (98-107) mmol/L Carbon Dioxide 25 (22-30) mmol/L BUN 14 (7-17) mg/dL Creatinine 0.80 (0.52-1.04) mg/dL Glucose 97 (74-99) mg/dL Calcium 9.2 (8.4-10.2) mg/dL Adrenal panel 10/15/17 Range/Units 21:17 Sodium 139 (137-145) mmol/L Potassium 4.3 (3.5-5.1) mmol/L Chloride 103 (98-107) mmol/L Carbon Dioxide 25 (22-30) mmol/L BUN 14 (7-17) mg/dL Creatinine 0.80 (0.52-1.04) mg/dL Glucose 97 (74-99) mg/dL Calcium 9.2 (8.4-10.2) mg/dL Total Bilirubin 0.3 (0.2-1.3) mg/dL AST 32 (14-36) U/L ALT 31 (9-52) U/L Alkaline Phosphatase 52 (38-126) U/L Total Protein 6.7 (6.3-8.2) g/dL Albumin 4.4 (3.5-5.0) g/dL
[2017-10-16] MEDS ORDERED: IV FLUID CONTINUATION 1,000 ML IV ONE (13:36)
[2017-10-16] MEDS ORDERED: LIDOCAINE 1% INJ 10MG/ML (20 ML MDV) ONE (13:36)
[2017-10-16] MEDS ORDERED: PROPOFOL 10 MG/ML 20 ML VIAL IV ONE (13:36)
--- NOTE | 2017-10-16 13:58 | P.PCN ---
Date of Procedure: 10/16/17 Description of Procedure: PREOPERATIVE DIAGNOSIS: Dysphagia. Morbid obesity. Nausea with vomiting. History of gastrojejunal stricture. Epigastric abdominal pain POSTOPERATIVE DIAGNOSIS: Dysphagia. Nausea with vomiting. Morbid obesity. 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 OPERATION: Esophagogastrojejunoscopy with balloon dilatation to 15 mm to 20-mm of distal esophagus and gastric pouch Esophagogastrojejunoscopy with cold biopsy forceps of gastric pouch SURGEON: Suad Sharif MD ANESTHESIA: MAC. INDICATIONS: The patient is a 27-year-old female who presents with a history of dysphagia, gastric bypass including nausea and vomiting and dysphagia. Benefits and risks of the procedure were described. Informed consent was obtained. DESCRIPTION: The patient was brought into the endoscopy suite and laid in the left lateral decubitus position. After a timeout was confirmed, the procedure was initiated. An Olympus gastroscope was passed along the posterior oropharynx down to the distal esophagus where the squamocolumnar junction was unremarkable. The gastric pouch was entered. A gastrojejunal stricture of 15 mm was found as the pediatric gastroscope was 8.6 mm in size. A [place] balloon dilator was placed through the scope. Final insufflation up to 20 mm was performed with a total of 2 minutes. The scope was advanced up to 60 cm from the incisors into the Raissa limb. The mucosa of the gastrojejunal anastomosis was intact. No chronic gastrojejunal marginal ulcer was encountered. Biopsies of the gastric pouch was obtained with cold forceps. No full-thickness injury was encountered. The GI tract was desufflated. The patient tolerated the procedure well. FINDINGS: Stricture of 15 mm encountered. No chronic gastrojejunal ulceration encountered. Successful balloon dilatation to 20 mm. RECOMMENDATIONS: Upper endoscopy as needed.
[2017-10-16] MEDS: ONDANSETRON 4 MG/2 ML VIAL IVP PRN (16:42)
--- NOTE | 2017-10-16 21:14 | P.PN ---
Subjective Progress Note Date: 10/16/17 CT of the abdomen and findings of upper endoscopy reviewed. Patient had esophageal and gastric obstruction responsive to balloon dilation. Her abdominal has improved. Incidental finding of over 20 pound weight gain since last seen in the bariatric center. Objective - Vital Signs Vital signs: Vital Signs Temp 96.8 F L 10/16/17 18:40 Pulse 72 10/16/17 18:40 Resp 20 10/16/17 18:40 BP 115/74 10/16/17 18:40 Pulse Ox 94 L 10/16/17 18:40 Intake & Output 10/16/17 10/16/17 10/17/17 06:59 18:59 06:59 Intake Total 0 430 Balance 0 430 Weight 132 kg Intake: IV 400 Oral 0 30 Other: # Voids 1 1 # Emeses 1 - Exam ABDOMEN: Soft and nontender. No peritonitis. GENERAL: Well developed and in no acute distress. Pleasant. HEENT: No sclera icterus. Extraocular movements grossly intact. Moist buccal mucosa. Head is atraumatic, normocephalic. Hears conversational speech. No nasal drainage. NECK: Supple without lymphadenopathy. No JV distention. CHEST: Non-labored respirations and equal bilateral excursions. CARDIOVASCULAR: Regular rate and rhythm. Palpable 2+ radial pulses. MUSCULOSKELETAL: No clubbing, cyanosis or edema. NEUROLOGIC: No focal or lateralizing signs. PSYCH: Appropriate affect. Alert and oriented to person, place and time. SKIN: Good skin turgor. Well perfused. - Labs CBC & Chem 7: 10/15/17 21:17 10/15/17 21:17 Labs: Abnormal Lab Results - Last 24 Hours (Table) 10/15/17 Range/Units 21:17 Lipase 341 H (23-300) U/L Microbiology - Last 24 Hours (Table) 10/15/17 21:35 Urine Culture - Preliminary Urine,Voided - Imaging and Cardiology CT scan - abdomen: report reviewed, image reviewed CT Scan - head: report reviewed, image reviewed (No recurrent diverticulitis of the transverse colon or incarcerated hiatal hernia ) Assessment and Plan (1) Esophageal obstruction Status: Acute Code(s): K22.2 - ESOPHAGEAL OBSTRUCTION SNOMED Code(s): 804347046 (2) Gastric hourglass stricture or stenosis Status: Acute Code(s): K31.2 - HOURGLASS STRICTURE AND STENOSIS OF STOMACH SNOMED Code(s): 02900612 (3) BMI 40.0-44.9, adult Status: Acute Code(s): Z68.41 - BODY MASS INDEX (BMI) 40.0-44.9, ADULT SNOMED Code(s): 997626077 (4) Epigastric abdominal pain Status: Acute Code(s): R10.13 - EPIGASTRIC PAIN SNOMED Code(s): 48830788 (5) Gastrojejunal anastomotic stricture Status: Chronic Code(s): K91.89 - OTH POSTPROCEDURAL COMPLICATIONS AND DISORDERS OF DGSTV SYS SNOMED Code(s): 989360763 (6) Morbid (severe) obesity due to excess calories Status: Chronic Code(s): E66.01 - MORBID (SEVERE) OBESITY DUE TO EXCESS CALORIES SNOMED Code(s): 302382371 (7) S/P gastric bypass Status: Chronic Code(s): Z98.84 - BARIATRIC SURGERY STATUS SNOMED Code(s): 696067661 Plan: 1. Trial of soft diet tomorrow. 2. Full bariatric labs. 3. Potential discharge tomorrow. 4. Patient also reminded of personal history of diverticulitis of the transverse colon
[2017-10-16 23:23] VITALS: RESP 16
[2017-10-17] MEDS: MORPHINE SULFATE 2 MG/ML SYRINGE IVP PRN ×3 (00:12→10:08)
[2017-10-17] MEDS: METOCLOPRAMIDE 5 MG/ML 2 ML VIAL IVP SCH ×2 (00:13→06:04)
[2017-10-17] MEDS: SODIUM CHLORIDE 0.9% 1,000 ML IV SCH ×2 (00:17→09:30)
[2017-10-17 06:27] LABS: INR 1.1 (<1.2); Prothrombin Time 10.9 sec (9.0-12.0)
[2017-10-17 06:36] LABS: Magnesium 1.9 mg/dL (1.6-2.3)
[2017-10-17 08:25] VITALS: BP 117/82; PULSE 64; TEMP 97.5
[2017-10-17] MEDS: DICYCLOMINE 10 MG CAP PO SCH (09:30)
[2017-10-17] MEDS: PANTOPRAZOLE 40 MG/10 ML VIAL IVP SCH (09:30)
[2017-10-17] MEDS: ONDANSETRON 4 MG/2 ML VIAL IVP PRN (10:14)
[2017-10-17 11:23] LABS: Iron Saturation 22.16 (12.00-45.00)
[2017-10-17 11:32] LABS: Folate, Serum 15.7 ng/mL
--- NOTE | 2017-10-17 12:33 | P.DS ---
<Shira Viera - Last Filed: 10/17/17 12:25> Providers Date of admission: 10/15/17 21:55 Expected date of discharge: 10/17/17 Attending physician: Suad Sharif Primary care physician: Stated None Hospital Course: 27-year-old female who presented with nausea vomiting epigastric abdominal pain. Inability to tolerate solid food. Patient does have a history of prior gastric bypass. Patient also has history of a prior gastric stricture. Patient reports his symptoms were more symptomatic and unable to tolerate a diet. Incidental finding was noted the patient did have a weight gain of 20 pounds since last seen in the bariatric center. Patient underwent on October 16Esophagogastrojejunoscopy with balloon dilatation to 15 mm to 20-mm of distal esophagus and gastric pouch Esophagogastrojejunoscopy with cold biopsy forceps of gastric pouch for the above-mentioned symptoms patient had a esophageal and gastric obstruction which did respond to balloon dilatation. Abdominal pain improved Patient was tolerating a diet felt to be appropriate to be discharged Impression discharge diagnosis Computed tomography scan abdomen pelvis showed mild hepatosplenomegaly with a few small sigmoid diverticuli history of neeru-en-y gastric bypass Status post esophageal gastric obstruction responsive to a balloon dilatation Esophagogastrojejunoscopy with balloon dilatation to 15 mm to 20-mm of distal esophagus and gastric pouch done on October 16 done on October 16 Esophagogastrojejunoscopy with cold biopsy forceps of gastric pouch Morbid obesity BMI 44 History of epigastric abdominal pain Dysphagia Assessment and Plan (1) Esophageal obstruction Current Visit: Yes Status: Acute Code(s): K22.2 - ESOPHAGEAL OBSTRUCTION SNOMED Code(s): 679365865 (2) Gastric hourglass stricture or stenosis Current Visit: Yes Status: Acute Code(s): K31.2 - HOURGLASS STRICTURE AND STENOSIS OF STOMACH SNOMED Code(s): 74417600 (3) BMI 40.0-44.9, adult Current Visit: No Status: Acute Code(s): Z68.41 - BODY MASS INDEX (BMI) 40.0 -44.9, ADULT SNOMED Code(s): 146888844 (4) Epigastric abdominal pain Current Visit: No Status: Acute Code(s): R10.13 - EPIGASTRIC PAIN SNOMED Code(s): 46887837 (5) Gastrojejunal anastomotic stricture Current Visit: No Status: Chronic Code(s): K91.89 - OTH POSTPROCEDURAL COMPLICATIONS AND DISORDERS OF DGSTV SYS SNOMED Code(s): 268528536 (6) Morbid (severe) obesity due to excess calories Current Visit: No Status: Chronic Code(s): E66.01 - MORBID (SEVERE) OBESITY DUE TO EXCESS CALORIES SNOMED Code(s): 525710546 (7) S/P gastric bypass The above impression and plan of care have been discussed and directed by signing physician. Shira Viera nurse practitioner acting as scribe for signing physician. Patient Condition at Discharge: Fair Plan - Discharge Summary New Discharge Prescriptions: Continue EPINEPHrine (Auto Inject) [Epipen] 0.3 mg IM ONCE PRN #2 syringe PRN Reason: Difficulty breathing Potassium Chloride ER [K-Dur 10] 10 meq PO DAILY Acetaminophen Tab [Tylenol] 1,000 mg PO Q6HR PRN PRN Reason: Pain Methocarbamol [Robaxin] 500 mg PO BID PRN PRN Reason: Muscle Spasm Discharge Medication List EPINEPHrine (Auto Inject) [Epipen] 0.3 mg IM ONCE PRN #2 syringe 08/20/16 [Rx] Acetaminophen Tab [Tylenol] 1,000 mg PO Q6HR PRN 10/15/17 [History] Methocarbamol [Robaxin] 500 mg PO BID PRN 10/15/17 [History] Potassium Chloride ER [K-Dur 10] 10 meq PO DAILY 10/15/17 [History] Follow up Appointment(s)/Referral(s): Suad Sharif MD [STAFF PHYSICIAN] - 10/24/17 10:30 am (You have an appointment with Dr Sharif on , October 24, 2017 at 10:30 am.) None,Stated [Primary Care Provider] - 1-2 days Patient Instructions/Handouts: Esophageal Stricture (GEN), Esophageal Dilation (DC), Esophageal Spasm (GEN) Activity/Diet/Wound Care/Special Instructions: Soft diet Drink plenty of fluids. Acetaminophen for pain Call Dr Sharif if you develop increase in pain, vomiting, diarrhea, or if you have any other questions or concerns. Discharge Disposition: HOME SELF-CARE <Suad Sharif - Last Filed: 10/17/17 21:27> - Discharge Diagnosis(es) (1) Esophageal obstruction Status: Acute (2) Gastric hourglass stricture or stenosis Status: Acute (3) BMI 40.0-44.9, adult Status: Acute (4) Epigastric abdominal pain Status: Acute (5) Gastrojejunal anastomotic stricture Status: Chronic (6) Morbid (severe) obesity due to excess calories Status: Chronic (7) S/P gastric bypass Status: Chronic
[2017-10-18 14:13] LABS: Vitamin A 33 ug/dL (38-106)
[2017-10-18 17:36] LABS: Vitamin D, 1, 25-Dihydroxy 74 pg/mL (20 - 79)
[2017-10-21 05:15] LABS: Vitamin B1 52 ug/L (38-122)
[2017-10-21 05:49] LABS: Zinc, Serum 81 ug/dL (60-130)
[2017-10-22 17:17] LABS: Selenium 99 mcg/L (63-160)
== END 2017-10-17 13:25 | disposition home or self-care (01) ==
LOC: EC 19:57 → 6PED 21:55
PROVIDERS: ADMIT Surgery Plastic and Reconstructive Surgery; ATTEND Surgery Plastic and Reconstructive Surgery
DX: K22.2 Esophageal obstruction (principal); K91.89 Other postprocedural complications and disorders of digestive system; K31.2 Hourglass stricture and stenosis of stomach; Z98.84 Bariatric surgery status; R11.2 Nausea with vomiting, unspecified; I10 Essential (primary) hypertension; E07.9 Disorder of thyroid, unspecified; K57.30 Diverticulosis of large intestine without perforation or abscess without bleeding; Z90.49 Acquired absence of other specified parts of digestive tract; E66.01 Morbid (severe) obesity due to excess calories; Z68.42 Body mass index [BMI] 45.0-49.9, adult; Z79.899 Other long term (current) drug therapy; Z91.030 Bee allergy status; Z91.018 Allergy to other foods; Z84.89 Family history of other specified conditions; R16.2 Hepatomegaly with splenomegaly, not elsewhere classified
CPT/HCPCS: 99285 ×2; 96374 ×2; 96375 ×4; 96361 ×4; 96372 ×2; 96376; 36415; 84255; 82652; 88305; 84425; 80053; 82607; 82728; 82150; 82525; 82746; 83540; 83550; 83605; 83690 ×2; 83735; 84443; 84590; 84630; 85025; 85610; 81003; 81025; 87086; 74177; 43239; 43245; G0378 ×3; J0500; J2765 ×2; J2405 ×3; J2001; J2270 ×3; J2704; C9113 ×3; Q9967; C1726

== ENCOUNTER 2018-06-18 12:06 | Emergency (ER) | payer BC, OTHER ==
[2018-06-18 12:26] VITALS: RESP 18
--- NOTE | 2018-06-18 13:22 | ED ---
General Adult HPI - General Chief complaint: Extremity Injury, Lower Stated complaint: fall-[facility] Time Seen by Provider: 06/18/18 12:51 Source: patient, RN notes reviewed Mode of arrival: ambulatory Limitations: no limitations - History of Present Illness Initial comments: 28-year-old female with a past medical history of hypertension, diverticulitis presents to the emergency department for a chief complaint of left knee pain. Patient states that 6 days ago she fell when she slipped on ice. She states her knee has been hurting since that time she has been able to ambulate on it. She states it has been weeping consistently for the past few days. She states it is weeping clear liquid through gauze. She states she has been applying antibiotic ointment and using hydrogen peroxide frequently. She states she can bend the knee without difficulty. Patient has no other complaints at this time including shortness of breath, chest pain, abdominal pain, nausea or vomiting, headache, or visual changes. - Related Data Previous Rx's Medication Instructions Recorded Cephalexin [Keflex] 500 mg PO Q6HR 3 Days #12 cap 06/18/18 Allergies Allergy/AdvReac Type Severity Reaction Status Date / Time venom-honey bee Allergy Severe Anaphylaxis Verified 06/18/18 13:38 [bee venom (honey bee)] gluten AdvReac Abdominal Verified 06/18/18 13:38 Pain Review of Systems ROS Statement: Those systems with pertinent positive or pertinent negative responses have been documented in the HPI. ROS Other: All systems not noted in ROS Statement are negative. Past Medical History Past Medical History: Hypertension, Thyroid Disorder Additional Past Medical History / Comment(s): HX OF DIVERTICULITIS (2010), History of Any Multi-Drug Resistant Organisms: None Reported Past Surgical History: Bariatric Surgery, Cholecystectomy, Hernia Repair, Tonsillectomy Additional Past Surgical History / Comment(s): EGD 03/07/16, 05/21/16. , АНДРЕЙ-EN -Y GASTRIC BYPASS (04/18/16) lysis of adhesions august 2016 Past Anesthesia/Blood Transfusion Reactions: Family History of Problems w/ Anesthesia, Motion Sickness, Postoperative Nausea & Vomiting (PONV) Additional Past Anesthesia/Blood Transfusion Reaction / Comment(s): IMMEDIATE FAMILY ALSO HAVE PONV. Past Psychological History: No Psychological Hx Reported Smoking Status: Never smoker Past Alcohol Use History: None Reported Past Drug Use History: None Reported - Past Family History Father Family Medical History: No Reported History Mother Family Medical History: No Reported History General Exam Limitations: no limitations General appearance: alert, in no apparent distress Head exam: Present: atraumatic, normocephalic, normal inspection Eye exam: Present: normal appearance, PERRL, EOMI. Absent: scleral icterus, conjunctival injection, periorbital swelling ENT exam: Present: normal exam, mucous membranes moist Neck exam: Present: normal inspection, full ROM. Absent: tenderness, meningismus, lymphadenopathy Respiratory exam: Present: normal lung sounds bilaterally. Absent: respiratory distress, wheezes, rales, rhonchi, stridor Cardiovascular Exam: Present: regular rate, normal rhythm, normal heart sounds. Absent: systolic murmur, diastolic murmur, rubs, gallop, clicks GI/Abdominal exam: Present: soft, normal bowel sounds. Absent: distended, tenderness, guarding, rebound, rigid Extremities exam: Present: tenderness (Tenderness noted over the anterior aspect of the left knee), normal capillary refill (Capillary refill less than 2 seconds and DP pulse 2+ in the left lower extremity), other (Patient has abrasion noted to left anterior knee without any spreading redness or evidence of cellulitis. No purulent discharge.). Absent: full ROM (Patient has about 90 flexion of the left knee), joint swelling (No significant edema noted of the left knee.) Neurological exam: Present: alert, oriented X3, CN II-XII intact Psychiatric exam: Present: normal affect, normal mood Course Vital Signs 06/18/18 12:23 Temperature 98.8 F Pulse Rate 63 Respiratory 18 Rate Blood Pressure 127/76 O2 Sat by Pulse 99 Oximetry Medical Decision Making - Medical Decision Making 28-year-old female presents to the emergency department for left knee pain 6 days. Patient slipped and ice and skinned her knee. She states she has been ambulating on it but it is somewhat painful. She has about 90 flexions. There is an abrasion noted about 5 cm x 5 cm. She states this has been weeping excessively. No. When drainage. No evidence of a cellulitis. X-ray of the left knee shows no fractures, no joint effusion. Patient has been applying hydrogen peroxide and antibiotic ointment continuously. I suspect area has not scabbed over yet due to application of these medicines. I did prescribe patient really days of Keflex to prevent any infection and educated her to allow area to scabbed over and dry out. She will follow up with orthopedics and return if she has any worsening symptoms. Patient ambulatory. Disposition Clinical Impression: Knee pain, left, Abrasion Disposition: HOME SELF-CARE Condition: Good Instructions (If sedation given, give patient instructions): Abrasion (ED), Knee Pain (ED) Additional Instructions: Please take antibiotic as directed. Allow wound to dry and scab over. Rest, ice and elevate the left knee. Please follow-up with primary care in 1-2 days. Follow-up with orthopedics. Return to the emergency department if you have any worsening symptoms. Prescriptions: Cephalexin [Keflex] 500 mg PO Q6HR 3 Days #12 cap Is patient prescribed a controlled substance at d/c from ED?: No Referrals: Sandor Padron MD [STAFF PHYSICIAN] - 1-2 days Yahaira Mccord MD [REFERRING] - 1-2 days Time of Disposition: 13:51
--- NOTE | 2018-06-18 14:16 | XR ---
EXAMINATION TYPE: XR knee 4V LT DATE OF EXAM: 06/18/2018 COMPARISON: None HISTORY: Pain fall on ice patellar pain TECHNIQUE: 4 view left knee FINDINGS: No acute fractures are evident. Joint spaces appear preserved. No joint effusion is evident . Patella appears intact. Patellofemoral joint spaces preserved. IMPRESSION: 1. Normal 4 view left knee. 2. If additional evaluation would be of benefit, MRI could be performed.
[2018-06-18 14:40] VITALS: BP 149/94; PULSE 69; TEMP 98.4
== END 2018-06-18 14:38 | disposition home or self-care (01) ==
LOC: EC 12:06
DX: S80.212A Abrasion, left knee, initial encounter (principal); Z91.018 Allergy to other foods; Z91.030 Bee allergy status; W00.0XXA Fall on same level due to ice and snow, initial encounter; Y92.69 Other specified industrial and construction area as the place of occurrence of the external cause; Y99.0 Civilian activity done for income or pay
CPT/HCPCS: 99283

== ENCOUNTER 2018-11-08 18:54 | Emergency (ER) | payer OTHER ==
[2018-11-08] MEDS ORDERED: ALBUTEROL NEBULIZED 2.5 MG/3 ML INHALATION STA (19:40)
[2018-11-08] MEDS ORDERED: IPRATROPIUM-ALBUTEROL 3 ML NEB INHALATION STA (19:40)
[2018-11-08] MEDS ORDERED: methylPREDNISolone SOD SUCCI 125 MG/2 ML VIAL IM ONE (19:40)
--- NOTE | 2018-11-08 19:44 | ED ---
Allergic Reaction HPI - General Chief complaint: Allergic Reaction Stated complaint: GRACIE Time Seen by Provider: 11/08/18 19:22 Source: patient, RN notes reviewed, old records reviewed Mode of arrival: ambulatory Limitations: no limitations - History of Present Illness Initial Comments: Patient is a 28 rolled female with a history of sore throat, ear pain and congestion. She states that she will comply 1:30 AM complaining of difficulty breathing feeling like her throat was swollen. Patient states she touches having ALLERGIC reaction. She has a known history of ALLERGY to bees. But denies any history of being stung. She says it feels tight with her taking a deep breath. Patient has no other significant complaints this time denies any fevers. Should she otherwise feels well. Patient reports she's been taking multiple rounds Benadryl with no relief of her symptoms at this time. - Related Data Previous Rx's Medication Instructions Recorded Cephalexin [Keflex] 500 mg PO Q6HR 3 Days #12 cap 06/18/18 Albuterol Inhaler [Ventolin Hfa 1 - 2 puff INHALATION RT-Q6H PRN 11/08/18 Inhaler] #1 inhaler methylPREDNISolone Dose Pack 4 mg PO DIRECTED #21 package 11/08/18 [Medrol Dose Pack] Allergies Allergy/AdvReac Type Severity Reaction Status Date / Time venom-honey bee Allergy Severe Anaphylaxis Verified 06/18/18 13:38 [bee venom (honey bee)] Milk Containing Products Allergy Rash/Hives Verified 11/08/18 19:18 gluten AdvReac Abdominal Verified 06/18/18 13:38 Pain Review of Systems ROS Statement: Those systems with pertinent positive or pertinent negative responses have been documented in the HPI. ROS Other: All systems not noted in ROS Statement are negative. Past Medical History Past Medical History: Hypertension, Thyroid Disorder Additional Past Medical History / Comment(s): HX OF DIVERTICULITIS (2010), History of Any Multi-Drug Resistant Organisms: None Reported Past Surgical History: Bariatric Surgery, Cholecystectomy, Hernia Repair, Tonsillectomy Additional Past Surgical History / Comment(s): EGD 03/07/16, 05/21/16. , АНДРЕЙ-EN-Y GASTRIC BYPASS (04/18/16) lysis of adhesions august 2016 Past Anesthesia/Blood Transfusion Reactions: Family History of Problems w/ Anesthesia, Motion Sickness, Postoperative Nausea & Vomiting (PONV) Additional Past Anesthesia/Blood Transfusion Reaction / Comment(s): IMMEDIATE FAMILY ALSO HAVE PONV. Past Psychological History: No Psychological Hx Reported Smoking Status: Never smoker Past Alcohol Use History: None Reported Past Drug Use History: None Reported - Past Family History Father Family Medical History: No Reported History Mother Family Medical History: No Reported History General Exam - General Exam Comments Initial Comments: 28 rolled female. Alert and oriented 3. No significant distress. Limitations: no limitations General appearance: alert, in no apparent distress Head exam: Present: atraumatic, normocephalic, normal inspection Eye exam: Present: normal appearance, PERRL, EOMI. Absent: scleral icterus, conjunctival injection, periorbital swelling ENT exam: Present: normal exam, mucous membranes moist, other (Erythematous Oropharynx.) Neck exam: Present: normal inspection. Absent: tenderness, meningismus, lymphadenopathy Respiratory exam: Absent: normal lung sounds bilaterally, respiratory distress, wheezes (Minimally wheeze, ), rales, rhonchi, stridor Cardiovascular Exam: Present: regular rate, normal rhythm, normal heart sounds. Absent: systolic murmur, diastolic murmur, rubs, gallop, clicks GI/Abdominal exam: Present: soft, normal bowel sounds. Absent: distended, tenderness, guarding, rebound, rigid Extremities exam: Present: normal inspection, full ROM, normal capillary refill. Absent: tenderness, pedal edema, joint swelling, calf tenderness Back exam: Present: normal inspection Neurological exam: Present: alert, oriented X3, CN II-XII intact Psychiatric exam: Present: normal affect, normal mood Skin exam: Present: warm, dry, intact, normal color. Absent: rash Course Vital Signs 11/08/18 11/08/18 11/08/18 19:13 20:15 20:29 Temperature 98.4 F Pulse Rate 88 81 81 Respiratory 18 Rate Blood Pressure 182/102 O2 Sat by Pulse 100 Oximetry - Reevaluation(s) Reevaluation #1: 11/08/18 20:45 Patient is reevaluated, resting heavily bed. She states she feels better after breathing treatments. Medical Decision Making - Medical Decision Making 28-year-old female presents emergency department today for evaluation for shortness of breath, feeling of throat closing Patient has maybe was bit by a spider or loss sleeping. Inserted 1:30 AM. Patient diminished lung sounds. Skintreatment. She has feels tight in her chest taking deep breath. Concern for possible asthma exacerbation. Patient is given IM Solu-Medrol and breathing treatment. Feels better at this time. Rapid strep is negative. She demonstrates congestion. Discussed possibility of ALLERGY related symptoms or viral throwing Patient to an asthma laceration. Discussed close follow-up with PCP. We'll discharge Patient with steroids and albuterol./ - Lab Data Lab Results 11/08/18 Range/Units 19:46 Group A Strep Rapid Negative (Negative) Disposition Clinical Impression: Pharyngitis, Asthma Disposition: HOME SELF-CARE Condition: Good Additional Instructions: Patient has a close follow-up with primary care physician. Ear prescription as her sent [facility]. Patient should do salt water rinses and throat lozenges for throat pain. Recommend using decongestant ALLERGY medications. Patient should have close follow up with primary care physician. Return to emergency department if any alarming signs or symptoms occur. Prescriptions: methylPREDNISolone Dose Pack [Medrol Dose Pack] 4 mg PO DIRECTED #21 package Albuterol Inhaler [Ventolin Hfa Inhaler] 1 - 2 puff INHALATION RT-Q6H PRN #1 inhaler PRN Reason: Shortness Of Breath Is patient prescribed a controlled substance at d/c from ED?: No Referrals: None,Stated [Primary Care Provider] - 1-2 days Elena Summers MD [STAFF PHYSICIAN] - 1-2 days Time of Disposition: 20:46
[2018-11-08 21:34] VITALS: BP 143/96; PULSE 92; RESP 20; TEMP 98.5
== END 2018-11-08 21:34 | disposition home or self-care (01) ==
LOC: EC 18:54
DX: J45.909 Unspecified asthma, uncomplicated (principal); J02.9 Acute pharyngitis, unspecified; Z91.030 Bee allergy status; Z91.011 Allergy to milk products; Z91.018 Allergy to other foods
CPT/HCPCS: 94640; 87081; 87430; 99285; 96372; J2930

== ENCOUNTER 2020-07-27 10:18 | Inpatient (IN) | payer OTHER ==
[2020-07-27] MEDS ORDERED: SODIUM CHLORIDE 0.9% 1,000 ML IV STA ×2 (10:49→13:55)
[2020-07-27] MEDS ORDERED: ONDANSETRON 4 MG/2 ML VIAL IVP STA (10:49)
[2020-07-27] MEDS ORDERED: KETOROLAC 15 MG/ML 1 ML VIAL IVP STA (10:49)
[2020-07-27] MEDS ORDERED: PANTOPRAZOLE 40 MG/10 ML VIAL IVP STA (10:49)
[2020-07-27 11:09] LABS: Basophils # (A) 0.1 k/uL (0-0.2); Basophils % (A) 1 %; Eosinophils # (A) 0.1 k/uL (0-0.7); Eosinophils % (A) 2 %; HCT 33.5 % (34.0-46.0); HGB 11.5 gm/dL (11.4-16.0); Lymphocytes # (A) 1.5 k/uL (1.0-4.8); Lymphocytes % (A) 26 %; MCH 25.6 pg (25.0-35.0); MCHC 34.3 g/dL (31.0-37.0); MCV 74.6 fL (80.0-100.0); Mean Platelet Volume 6.8; Microcytosis Slight; Monocytes # (A) 0.3 k/uL (0-1.0); Monocytes % (A) 6 %; Neutrophils # (A) 3.7 k/uL (1.3-7.7); Neutrophils % (A) 64 %; Platelet Count 287 k/uL (150-450); RBC 4.49 m/uL (3.80-5.40); RDW 13.3 % (11.5-15.5); WBC 5.8 k/uL (3.8-10.6)
--- NOTE | 2020-07-27 11:11 | ED ---
Abdominal Pain HPI - General Chief Complaint: Fever Stated Complaint: Vomiting Blood Time Seen by Provider: 07/27/20 10:28 Source: patient Mode of arrival: ambulatory Limitations: no limitations - History of Present Illness Initial Comments: Patient is a 30-year-old female presenting to the emergency Department with complaints of upper abdominal pain as well as dark-colored emesis for the past week. Patient states one week ago she had an episode of vomiting with "coffee colored vomit for about 4 hours and then it subsided." She states over the past week she's had continued epigastric discomfort with radiation over to the left and right side. She states yesterday she again had vomiting that was dark in color. She talked her coworkers about this and they told her this could be applied and to go into the ER. She denies any bright red bleeding. She does have history of bariatric surgery, cholecystectomy and hernia repair. She's also had diverticulitis in the past. She does admit to some mild nausea, no vomiting today. He denies any fevers or chills, she's been having normal bowel movements. She has no further complaints at this time. Upon arrival to the ER her vitals are stable. - Related Data Home Medications Medication Instructions Recorded Confirmed L-Tyrosine 1 cap PO DAILY 07/27/20 07/27/20 Loratadine [Alavert] 10 mg PO DAILY 07/27/20 07/27/20 Magnesium 250 mg PO DAILY 07/27/20 07/27/20 Multivitamins, Thera [Multivitamin 1 tab PO DAILY 07/27/20 07/27/20 (formulary)] Vitamin B Complex 1 cap PO DAILY 07/27/20 07/27/20 Allergies Allergy/AdvReac Type Severity Reaction Status Date / Time venom-honey bee Allergy Severe Anaphylaxis Verified 07/27/20 13:28 [bee venom (honey bee)] Milk Containing Products Allergy Rash/Hives Verified 07/27/20 13:28 gluten AdvReac Abdominal Verified 07/27/20 13:28 Pain Review of Systems ROS Statement: Those systems with pertinent positive or pertinent negative responses have been documented in the HPI. ROS Other: All systems not noted in ROS Statement are negative. Past Medical History Past Medical History: Hypertension, Thyroid Disorder Additional Past Medical History / Comment(s): HX OF DIVERTICULITIS (2010), History of Any Multi-Drug Resistant Organisms: None Reported Past Surgical History: Bariatric Surgery, Cholecystectomy, Hernia Repair, Tonsillectomy Additional Past Surgical History / Comment(s): EGD 03/07/16, 05/21/16. , АНДРЕЙ-EN-Y GASTRIC BYPASS (04/18/16) lysis of adhesions august 2016 Past Anesthesia/Blood Transfusion Reactions: Family History of Problems w/ Anesthesia, Motion Sickness, Postoperative Nausea & Vomiting (PONV) Additional Past Anesthesia/Blood Transfusion Reaction / Comment(s): IMMEDIATE FAMILY ALSO HAVE PONV. Past Psychological History: No Psychological Hx Reported Smoking Status: Never smoker Past Alcohol Use History: None Reported Past Drug Use History: None Reported - Past Family History Father Family Medical History: No Reported History Mother Family Medical History: No Reported History General Exam - General Exam Comments Initial Comments: GENERAL: Patient is well-developed and well-nourished. Patient is nontoxic and in no acute distress. HEAD: Atraumatic, normocephalic. EYES: Pupils equal round and reactive to light, extraocular movements intact, sclera anicteric, conjunctiva are normal. Eyelids were unremarkable. ENT: TMs normal, nares patent, oropharynx clear without exudates. Moist mucous membranes. NECK: Normal range of motion, supple without lymphadenopathy or JVD. LUNGS: Unlabored respirations. Breath sounds clear to auscultation bilaterally and equal. No wheezes rales or rhonchi. HEART: Regular rate and rhythm without murmurs, rubs or gallops. ABDOMEN: Soft, upper abdominal pain with palpation, epigastric, some mild left-sided abdominal pain as well. Normoactive bowel sounds. No guarding, no rebound. No masses appreciated. : Deferred MUSCULOSKELETAL: Normal extremities with adequate strength and normal range of motion, no pitting or edema. No clubbing or cyanosis. NEUROLOGICAL: Patient is alert and oriented x 3. Motor and sensory are also intact. Cranial nerves II through XII grossly intact. Symmetrical smile. Normal speech, normal gait. PSYCH: Normal mood, normal affect. SKIN: Warm, Dry, normal turgor, no rashes or lesions noted. Limitations: no limitations Course Vital Signs 07/27/20 07/27/20 10:21 17:22 Temperature 98.5 F 98.9 F Pulse Rate 84 62 Respiratory 18 18 Rate Blood Pressure 147/100 128/75 O2 Sat by Pulse 98 100 Oximetry Medical Decision Making - Medical Decision Making Patient is a 30-year-old female here for upper abdominal pain and coffee-ground emesis over the past week. She said multiple abdominal surgeries in the past. No fevers. Her vitals are stable. Labs show a stable white count, normal hemoglobin. Lipase is slightly elevated at 360, urine shows no evidence of infection. CT of the abdomen shows a small bowel anastomosis of the left upper quadrant that is mildly distended at 3.6 cm, no proximal distal dilation of the small bowel is noted. Patient was given fluids, pain control and Zofran but continues to have epigastric pain and nausea. I did give her stronger pain meds which seemed to help. I did consult with Dr. Sharif who agreed to admission. I will give her another bolus of fluids. Patient is in agreement with this plan of care. Rapid Covid is negative. Case discussed with Dr. Salgado. - Lab Data Result diagrams: 07/27/20 10:52 07/27/20 10:52 Lab Results 07/27/20 07/27/20 07/27/20 Range/Units 10:52 10:52 10:52 WBC 5.8 (3.8-10.6) k/uL RBC 4.49 (3.80-5.40) m/uL Hgb 11.5 (11.4-16.0) gm/dL Hct 33.5 L (34.0-46.0) % MCV 74.6 L (80.0-100.0) fL MCH 25.6 (25.0-35.0) pg MCHC 34.3 (31.0-37.0) g/dL RDW 13.3 (11.5-15.5) % Plt Count 287 (150-450) k/uL MPV 6.8 Neutrophils % 64 % Lymphocytes % 26 % Monocytes % 6 % Eosinophils % 2 % Basophils % 1 % Neutrophils # 3.7 (1.3-7.7) k/uL Lymphocytes # 1.5 (1.0-4.8) k/uL Monocytes # 0.3 (0-1.0) k/uL Eosinophils # 0.1 (0-0.7) k/uL Basophils # 0.1 (0-0.2) k/uL Microcytosis Slight PT 10.6 (9.0-12.0) sec INR 1.0 (<1.2) APTT 24.1 (22.0-30.0) sec Sodium (137-145) mmol/L Potassium (3.5-5.1) mmol/L Chloride (98-107) mmol/L Carbon Dioxide (22-30) mmol/L Anion Gap mmol/L BUN (7-17) mg/dL Creatinine (0.52-1.04) mg/dL Est GFR (CKD-EPI)AfAm (>60 ml/min/1.73 sqM) Est GFR (CKD-EPI)NonAf (>60 ml/min/1.73 sqM) Glucose (74-99) mg/dL Plasma Lactic Acid Trey (0.7-2.0) mmol/L Calcium (8.4-10.2) mg/dL Total Bilirubin (0.2-1.3) mg/dL AST (14-36) U/L ALT (4-34) U/L Alkaline Phosphatase (38-126) U/L Total Protein (6.3-8.2) g/dL Albumin (3.5-5.0) g/dL Amylase (30-110) U/L Lipase (23-300) U/L Urine Color Yellow Urine Appearance Cloudy H (Clear) Urine pH 5.5 (5.0-8.0) Ur Specific Frakes 1.018 (1.001-1.035) Urine Protein Negative (Negative) Urine Glucose (UA) Negative (Negative) Urine Ketones Negative (Negative) Urine Blood Negative (Negative) Urine Nitrite Negative (Negative) Urine Bilirubin Negative (Negative) Urine Urobilinogen <2.0 (<2.0) mg/dL Ur Leukocyte Esterase Negative (Negative) Urine RBC 1 (0-5) /hpf Urine WBC <1 (0-5) /hpf Ur Squamous Epith Cells 4 (0-4) /hpf Urine Bacteria Moderate H (None) /hpf Urine Mucus Occasional H (None) /hpf Urine HCG, Qual (Not Detectd) 07/27/20 07/27/20 07/27/20 Range/Units 10:52 10:52 10:52 WBC (3.8-10.6) k/uL RBC (3.80-5.40) m/uL Hgb (11.4-16.0) gm/dL Hct (34.0-46.0) % MCV (80.0-100.0) fL MCH (25.0-35.0) pg MCHC (31.0-37.0) g/dL RDW (11.5-15.5) % Plt Count (150-450) k/uL MPV Neutrophils % % Lymphocytes % % Monocytes % % Eosinophils % % Basophils % % Neutrophils # (1.3-7.7) k/uL Lymphocytes # (1.0-4.8) k/uL Monocytes # (0-1.0) k/uL Eosinophils # (0-0.7) k/uL Basophils # (0-0.2) k/uL Microcytosis PT (9.0-12.0) sec INR (<1.2) APTT (22.0-30.0) sec Sodium 138 (137-145) mmol/L Potassium 4.3 (3.5-5.1) mmol/L Chloride 106 (98-107) mmol/L Carbon Dioxide 23 (22-30) mmol/L Anion Gap 9 mmol/L BUN 15 (7-17) mg/dL Creatinine 0.69 (0.52-1.04) mg/dL Est GFR (CKD-EPI)AfAm >90 (>60 ml/min/1.73 sqM) Est GFR (CKD-EPI)NonAf >90 (>60 ml/min/1.73 sqM) Glucose 97 (74-99) mg/dL Plasma Lactic Acid Trey 0.9 (0.7-2.0) mmol/L Calcium 9.1 (8.4-10.2) mg/dL Total Bilirubin 0.4 (0.2-1.3) mg/dL AST 21 (14-36) U/L ALT 8 (4-34) U/L Alkaline Phosphatase 48 (38-126) U/L Total Protein 6.8 (6.3-8.2) g/dL Albumin 4.2 (3.5-5.0) g/dL Amylase 56 (30-110) U/L Lipase 364 H (23-300) U/L Urine Color Urine Appearance (Clear) Urine pH (5.0-8.0) Ur Specific Frakes (1.001-1.035) Urine Protein (Negative) Urine Glucose (UA) (Negative) Urine Ketones (Negative) Urine Blood (Negative) Urine Nitrite (Negative) Urine Bilirubin (Negative) Urine Urobilinogen (<2.0) mg/dL Ur Leukocyte Esterase (Negative) Urine RBC (0-5) /hpf Urine WBC (0-5) /hpf Ur Squamous Epith Cells (0-4) /hpf Urine Bacteria (None) /hpf Urine Mucus (None) /hpf Urine HCG, Qual Not Detected (Not Detectd) Disposition Clinical Impression: Coffee ground emesis, Epigastric pain Disposition: ADMITTED IP TO THIS HOSP Condition: Stable Decision Date: 07/27/20 Decision Time: 13:56
[2020-07-27 11:18] LABS: Partial Thromboplastin Time 24.1 sec (22.0-30.0); Prothrombin Time 10.6 sec (9.0-12.0)
[2020-07-27 11:24] LABS: ALT 8 U/L (4-34); AST 21 U/L (14-36); African American GFR (CKD) >90 (>60 ml/min/1.73 sqM); Albumin 4.2 g/dL (3.5-5.0); Alkaline Phosphatase 48 U/L (38-126); Amylase 56 U/L (30-110); Anion Gap 9 mmol/L; Blood Urea Nitrogen 15 mg/dL (7-17); Calcium 9.1 mg/dL (8.4-10.2); Carbon Dioxide 23 mmol/L (22-30); Chloride 106 mmol/L (98-107); Glucose 97 mg/dL (74-99); Lipase 364 U/L (23-300); Non-African American GFR(CKD) >90 (>60 ml/min/1.73 sqM); Potassium 4.3 mmol/L (3.5-5.1); Sodium 138 mmol/L (137-145); Total Bilirubin 0.4 mg/dL (0.2-1.3); Total Protein 6.8 g/dL (6.3-8.2)
[2020-07-27 12:10] LABS: Appearance,Urine Cloudy (Clear); Bacteria,Urine Moderate /hpf; Bilirubin,Urine Negative (Negative); Blood,Urine Negative (Negative); Color,Urine Yellow; Glucose,Urine (UA) Negative (Negative); Ketones,Urine Negative (Negative); Leukocyte Esterase,Urine Negative (Negative); Mucus,Urine Occasional /hpf; Nitrite,Urine Negative (Negative); PH, Urine 5.5 (5.0-8.0); Protein,Urine Negative (Negative); RBC,Urine 1 /hpf (0-5); Specific Gravity,Urine 1.018 (1.001-1.035); Squamous Epithelial Cell,Urine 4 /hpf (0-4); Urobilinogen,Urine <2.0 mg/dL (<2.0); WBC,Urine <1 /hpf (0-5)
--- NOTE | 2020-07-27 13:02 | CT ---
EXAMINATION TYPE: CT abdomen pelvis w con DATE OF EXAM: 07/27/2020 COMPARISON: 10/16/2017 HISTORY: bilateral upper quadrant pain, nausea, vomiting CT DLP: 2554.4 mGycm CONTRAST: CT scan of the abdomen and pelvis is performed without Oral Contrast and with IV Contrast, patient in jected with 100 mL of Isovue 300. FINDINGS: LUNG BASES-: No visible nodule. No infiltrate. LIVER/GB: The gallbladder is surgically absent. No space occupying hepatic lesion. Biliary tree is of normal caliber. PANCREAS: No inflammation. No distinct mass. SPLEEN: No splenic enlargement. No lesion seen. ADRENALS: No nodule. No thickening. KIDNEYS/BLADDER: No hydronephrosis. No nephrolithiasis. No distinct renal mass. Urinary bladder g rossly unremarkable. BOWEL: Postsurgical change of gastric sleeve. Small bowel anastomosis left upper quadrant appears mil dly distended at 3.6 cm. No proximal or distal dilatation of small bowel is noted however. No evidenc e for leak or abscess. No free air. GENITAL ORGANS: No gross abnormality. LYMPH NODES: No greater than 1cm abdominal or pelvic lymph nodes are appreciated. AORTA: No significant abnormality. OSSEOUS STRUCTURES: No significant abnormality is seen. OTHER: No significant additional abnormality is seen. IMPRESSION: 1. Small bowel anastomosis left upper quadrant appears mildly distended at 3.6 cm. No proximal or dis haleigh dilatation of small bowel is noted however. No evidence for leak or abscess.
[2020-07-27] MEDS ORDERED: MORPHINE SULFATE 4 MG/ML SYRINGE IVP STA (13:20)
[2020-07-27] MEDS ORDERED: METOCLOPRAMIDE 5 MG/ML 2 ML VIAL IVP STA (13:20)
[2020-07-27] MEDS ORDERED: NALOXONE 0.4 MG/ML 1 ML VIAL IV PRN (13:54)
[2020-07-27] MEDS: MORPHINE SULFATE 4 MG/ML SYRINGE IV PRN ×2 (15:54→20:32)
[2020-07-27] MEDS: SODIUM CHLORIDE 0.9% 1,000 ML IV SCH ×2 (15:58→22:54)
[2020-07-27] MEDS: ONDANSETRON 4 MG/2 ML VIAL IVP PRN (17:16)
[2020-07-28] MEDS: MORPHINE SULFATE 4 MG/ML SYRINGE IV PRN ×5 (00:20→19:14)
[2020-07-28] MEDS: ONDANSETRON 4 MG/2 ML VIAL IVP PRN ×2 (00:24→11:24)
[2020-07-28] MEDS ORDERED: IV FLUID CONTINUATION 1,000 ML IV ONE (10:21)
[2020-07-28] MEDS ORDERED: LIDOCAINE 1% INJ 10MG/ML (20 ML MDV) ONE (10:23)
[2020-07-28] MEDS ORDERED: PROPOFOL 10 MG/ML 20 ML VIAL IV ONE (10:23)
--- NOTE | 2020-07-28 10:23 | P.GSHP ---
<Kiara Vazquez - Last Filed: 07/28/20 10:10> History of Present Illness H&P Date: 07/28/20 CHIEF COMPLAINT: Abdominal pain HISTORY OF PRESENT ILLNESS: This is a 30-year-old female with a known past surgical history of gastric bypass, cholecystectomy, hiatal hernia repair, lysis of adhesions and previous dilation for esophageal strictures. Patient presents to the emergency room with complaints of epigastric abdominal pain for the past week. She's also had intermittent episodes of vomiting with coffee ground emesi s. Her last episode of vomiting was yesterday. Patient has had poor appetite and nausea. She denies any NSAID use or history of peptic ulcer disease. The pain does not radiate. She also reports having regular bowel movements. She had computed tomography scan of the abdomen and pelvis showing small bowel anastomosis left upper quadrant appears mildly distended at 3.6 cm. No proximal or distal dilation of small bowel is noted. No evidence of leak or abscess. Patient denies any fever, chills or sweats. Denies any difficulty swallowing. Denies any urinary symptoms. PAST MEDICAL HISTORY: See list. PAST SURGICAL HISTORY: See list. MEDICATIONS: See list. ALLERGIES: See list. SOCIAL HISTORY: No illicit drug use. REVIEW OF SYSTEMS: CONSTITUTIONAL: Denies fever or chills. HEENT: Denies blurred vision, vision changes, or eye pain. Denies hemoptysis ENDOCRINE: Denies heat or cold intolerance. CARDIOVASCULAR: Denies chest pain or pressure. RESPIRATORY: No shortness of breath. GASTROINTESTINAL: Denies abdominal pain. Denies nausea or vomiting. NEURO: Denies history of seizures. PSYCH: No depression or suicidal ideation HEMATOLOGIC: Denies bleeding disorders. LYMPHATIC: The patient denies any lumps and bumps around the neck. GENITOURINARY: Denies any blood in urine or increased urinary frequency. MUSCULOSKELETAL: Denies myalgias. Denies joint swelling. Denies decreased range of motion beyond patients baseline. SKIN: Denies pruitis. Denies rash. PHYSICAL EXAM: VITAL SIGNS: Reviewed GENERAL: Well-developed in no acute distress. HEENT: No sclera icterus. Extraocular movements grossly intact. Moist buccal mucosa. Head is atraumatic, normocephalic. Hears conversational speech. No nasal drainage. NECK: Supple without lymphadenopathy. CHEST: Non-labored respirations and equal bilateral excursions. CARDIOVASCULAR: Palpable 2+ radial pulses. ABDOMEN: Soft. Nondistended. Epigastric tenderness MUSCULOSKELETAL: No clubbing or cyanosis. NEUROLOGIC: No focal or lateralizing signs. Cranial nerves II through XII grossly intact. PSYCH: Appropriate affect. Alert and oriented to person, place and time. SKIN: Well perfused. Good skin turgor. LABORATORY DATA: WBC 5.8 Hgb 11.5 platelets 287 Creatinine 0.69 lactic 0.9 LFTs normal lipase 364 Covid not detected IMAGING: computed tomography scan of the abdomen and pelvis showing small bowel anast omosis left upper quadrant appears mildly distended at 3.6 cm. No proximal or distal dilation of small bowel is noted. No evidence of leak or abscess. ASSESSMENT: 1. Epigastric abdominal pain with intermittent coffee-ground emesis 2. Prior history of esophageal stricture with dilation 3. History of gastrojejunal stricture with prior dilation 4. History of gastric bypass 5. History of hiatal hernia repair PLAN: -Patient is scheduled for EGD with dilation today by Dr. Sharif -Keep patient nothing by mouth -Continue IV Protonix -Continue IV fluids Physician Internet Retailer note has been reviewed by physician. Signing provider agrees with the documented findings, assessment, and plan of care. Past Medical History Past Medical History: Hypertension, Thyroid Disorder Additional Past Medical History / Comment(s): HX OF DIVERTICULITIS (2010), History of Any Multi-Drug Resistant Organisms: None Reported Past Surgical History: Bariatric Surgery, Cholecystectomy, Hernia Repair, Tonsillectomy Additional Past Surgical History / Comment(s): EGD 03/07/16, 05/21/16. , АНДРЕЙ-EN-Y GASTRIC BYPASS (04/18/16) lysis of adhesions august 2016 Past Anesthesia/Blood Transfusion Reactions: Family History of Problems w/ Anesthesia, Motion Sickness, Postoperative Nausea & Vomiting (PONV) Additional Past Anesthesia/Blood Transfusion Reaction / Comment(s): IMMEDIATE FAMILY ALSO HAVE PONV. Past Psychological History: No Psychological Hx Reported Smoking Status: Never smoker Past Alcohol Use History: None Reported Past Drug Use History: None Reported - Past Family History Father Family Medical History: No Reported History Mother Family Medical History: No Reported History Medications and Allergies Home Medications Medication Instructions Recorded Confirmed Type L-Tyrosine 1 cap PO DAILY 07/27/20 07/27/20 History Loratadine [Alavert] 10 mg PO DAILY 07/27/20 07/27/20 History Magnesium 250 mg PO DAILY 07/27/20 07/27/20 History Multivitamins, Thera [Multivitamin 1 tab PO DAILY 07/27/20 07/27/20 History (formulary)] Vitamin B Complex 1 cap PO DAILY 07/27/20 07/27/20 History Acetaminophen Tab [Tylenol Tab] 1,000 mg PO Q6HR PRN #30 tablet 07/29/20 Rx Simethicone 40 mg/0.6 ml Drops 40 mg PO Q6HR PRN #30 ml 07/29/20 Rx [Mylicon Drops] Allergies Allergy/AdvReac Type Severity Reaction Status Date / Time venom-honey bee Allergy Severe Anaphylaxis Verified 07/27/20 13:28 [bee venom (honey bee)] Milk Containing Products Allergy Rash/Hives Verified 07/27/20 13:28 gluten AdvReac Abdominal Verified 07/27/20 13:28 Pain Surgical - Exam Vital Signs Temp Pulse Resp BP Pulse Ox 98.5 F 84 18 147/100 98 07/27/20 10:21 07/27/20 10:21 07/27/20 10:21 07/27/20 10:21 07/27/20 10:21 Results - Labs 07/27/20 10:52 07/27/20 10:52 Abnormal Lab Results - Last 24 Hours (Table) 07/27/20 07/27/20 07/27/20 Range/Units 10:52 10:52 10:52 Hct 33.5 L (34.0-46.0) % MCV 74.6 L (80.0-100.0) fL Lipase 364 H (23-300) U/L Urine Appearance Cloudy H (Clear) Urine Bacteria Moderate H (None) /hpf Urine Mucus Occasional H (None) /hpf Diabetes panel 07/27/20 Range/Units 10:52 Sodium 138 (137-145) mmol/L Potassium 4.3 (3.5-5.1) mmol/L Chloride 106 (98-107) mmol/L Carbon Dioxide 23 (22-30) mmol/L BUN 15 (7-17) mg/dL Creatinine 0.69 (0.52-1.04) mg/dL Glucose 97 (74-99) mg/dL Calcium 9.1 (8.4-10.2) mg/dL AST 21 (14-36) U/L ALT 8 (4-34) U/L Alkaline Phosphatase 48 (38-126) U/L Total Protein 6.8 (6.3-8.2) g/dL Albumin 4.2 (3.5-5.0) g/dL Calcium panel 07/27/20 Range/Units 10:52 Calcium 9.1 (8.4-10.2) mg/dL Albumin 4.2 (3.5-5.0) g/dL Pituitary panel 07/27/20 Range/Units 10:52 Sodium 138 (137-145) mmol/L Potassium 4.3 (3.5-5.1) mmol/L Chloride 106 (98-107) mmol/L Carbon Dioxide 23 (22-30) mmol/L BUN 15 (7-17) mg/dL Creatinine 0.69 (0.52-1.04) mg/dL Glucose 97 (74-99) mg/dL Calcium 9.1 (8.4-10.2) mg/dL Adrenal panel 07/27/20 Range/Units 10:52 Sodium 138 (137-145) mmol/L Potassium 4.3 (3.5-5.1) mmol/L Chloride 106 (98-107) mmol/L Carbon Dioxide 23 (22-30) mmol/L BUN 15 (7-17) mg/dL Creatinine 0.69 (0.52-1.04) mg/dL Glucose 97 (74-99) mg/dL Calcium 9.1 (8.4-10.2) mg/dL Total Bilirubin 0.4 (0.2-1.3) mg/dL AST 21 (14-36) U/L ALT 8 (4-34) U/L Alkaline Phosphatase 48 (38-126) U/L Total Protein 6.8 (6.3-8.2) g/dL Albumin 4.2 (3.5-5.0) g/dL <Suad Sharif N - Last Filed: 07/29/20 21:55> History of Present Illness As above. Please see additional documentation. Surgical - Exam Vital Signs Temp Pulse Resp BP Pulse Ox 98.5 F 84 18 147/100 98 07/27/20 10:21 07/27/20 10:07/27/20 10:07/27/20 10:21 07/27/20 10:21 Results - Labs 07/28/20 11:30 07/27/20 10:52 Abnormal Lab Results - Last 24 Hours (Table) 07/29/20 Range/Units 11:57 HDL Cholesterol 33 L (40-60) mg/dL Diabetes panel 07/29/20 Range/Units 11:57 Triglycerides 101 (<150) mg/dL HDL Cholesterol 33 L (40-60) mg/dL Thyroid panel 07/29/20 Range/Units 11:57 TSH 1.980 (0.465-4.680) mIU/L Calcium panel 07/29/20 Range/Units 11:57 Phosphorus 4.1 (2.5-4.5) mg/dL Pituitary panel 07/29/20 Range/Units 11:57 TSH 1.980 (0.465-4.680) mIU/L Assessment and Plan (1) Hematemesis Status: Acute Code(s): K92.0 - HEMATEMESIS SNOMED Code(s): 9781847 (2) Bariatric surgery status Status: Acute Code(s): Z98.84 - BARIATRIC SURGERY STATUS SNOMED Code(s): 6 55739145 (3) Dehydration Status: Acute Code(s): E86.0 - DEHYDRATION SNOMED Code(s): 84271203 (4) Epigastric abdominal pain Status: Acute Code(s): R10.13 - EPIGASTRIC PAIN SNOMED Code(s): 49546410 (5) Gastric stenosis Status: Acute Code(s): K31.2 - HOURGLASS STRICTURE AND STENOSIS OF STOMACH SNOMED Code(s): 33515718 (6) History of gastric ulcer Status: Acute Code(s): Z87.11 - PERSONAL HISTORY OF PEPTIC ULCER DISEASE SNOMED Code(s): 739101279
[2020-07-28] MEDS ORDERED: LACTATED RINGERS 1,000 ML IV ONE (10:28)
--- NOTE | 2020-07-28 10:34 | P.GSHP ---
History of Present Illness H&P Date: 07/28/20 CHIEF COMPLAINT: Abdominal pain with hematesis HISTORY OF PRESENT ILLNESS: Bisi Allen is a 30-year-old female status post gastric bypass, March 2016. She is 5 years out. She have been lost to follow-up. She comes into the emergency room with new epigastric pain ongoing for over 1 week. She came in with hematemesis. She has past history gastrojejunal ulcers and strictures in the past. She has hisotry of diverticulitis in the past. She reports 1 week history of intractable nausea and vomiting, epigastric abdominal pain. She denies any alleviating factors. She is admitted for epigastric abdominal pain, nausea and vomiting with hematesis. Her previous weight was 364 pounds. Body mass index at present is 55.9. She comes in 278 pounds, BMI 42.4. Lifetime weight loss is 89 pounds. Lifetime percent excess weight loss is 43%. PAST MEDICAL HISTORY: 1. Morbid obesity. 2. Osteoarthritis. 3. Gastroesophageal reflux disease. 4. Obstructive sleep apnea. 5. Thyroid disorder. 6. Diverticulitis. 7. Postop nausea, vomiting. PAST SURGICAL HISTORY: 1. Tonsillectomy. 2. Cholecystectomy. 3. Upper endoscopy. 4. Status post gastric bypass March 2016 MEDICATIONS: 1. Vitamin D. 2. Omeprazole. ALLERGIES: BEE VENOM. SOCIAL HISTORY: No active tobacco use. FAMILY HISTORY: Pertinent for morbid obesity including diabetes type 2. REVIEW OF SYSTEMS: CONSTITUTIONAL: [place] body weight of 168 pounds for a 5 foot, 9 inches frame. Highest weight of 367 pounds. Body mass index is 55.9. HEENT: No troubles with vision, hearing. Has dysphagia. ENDOCRINE: Thyroid disorder. She was prediabetic. RESPIRATORY: Has snoring. Obstructive sleep apnea. No recent asthma. CARDIOVASCULAR: No reports of heart disease. Has had prior hypertension untreated. GASTROINTESTINAL: Has history of change in bowel habits. Also has history of diverticulitis. Has gastroesophageal reflux disease. MUSCULOSKELETAL: Has osteoarthritis of the bilateral ankles and extremities. NEUROLOGICAL: No stroke or seizure disorder. PSYCHIATRY: No reports of depression or suicidal ideation. HEMATOLOGIC: Denies any easy bruising or bleeding. No reports of DVTs. PHYSICAL EXAMINATION: VITAL SIGNS: 5 foot 8, 278 pounds. Body mass index of 42.4. GENERAL: Well developed female in no acute distress. ABDOMEN: Soft, tender at epigastrium HEENT: No scleral icterus. Extraocular movements intact grossly intact. NECK: Supple without lymphadenopathy. CHEST: Nonlabored respirations. Equal bilateral excursions. CARDIOVASCULAR: Regular rate and rhythm. MUSCULOSKELETAL: No clubbing, cyanosis, or edema. NEURO: No focal or lateralizing signs. Cranial nerves II through XII within normal limits. PSYCH: Appropriate affect. Alert and oriented times to person, place and time. SKIN: Well perfused. Good skin turgor. WBC: WBC 5.8 and normal. Hemoglobin is low 11.5 to 10.8. STUDIES: CT of the abdomen and pelvis reviewed without mesenteric swirl. No acute diverticulitis. This is my independent interpretation. REPORT: Radiology report demonstrates dilated small bowel along the left upper quadrant. ASSESSMENT: 1. Hematemsis 2. Epigastric abdominal pain 3. Abnormal CT scan of the abdomen and pelvis for small bowel dilation 4. Morbid obesity due to excess calories. 5. Body mass index 55.9 down to 42.4 6. Gastroesophageal reflux disease. 7. Obstructive sleep apnea. 8. History of hypertensive heart disease. 9. History of diverticulitis. PLAN: 1. With her prior history of gastric ulcer, will proceed with upper endoscopy with possible dilation. 2. She is elevated risk for complications with prior history of stricture 3. Admission with IV fluid hydration. 4. Monitor hemoglobin. Past Medical History Past Medical History: Hypertension, Thyroid Disorder Additional Past Medical History / Comment(s): HX OF DIVERTICULITIS (2010), History of Any Multi-Drug Resistant Organisms: None Reported Past Surgical History: Bariatric Surgery, Cholecystectomy, Hernia Repair, Tonsillectomy Additional Past Surgical History / Comment(s): EGD 03/07/16, 05/21/16. , АНДРЕЙ-EN-Y GASTRIC BYPASS (04/18/16) lysis of adhesions august 2016 Past Anesthesia/Blood Transfusion Reactions: Family History of Problems w/ Ane sthesia, Motion Sickness, Postoperative Nausea & Vomiting (PONV) Additional Past Anesthesia/Blood Transfusion Reaction / Comment(s): IMMEDIATE FAMILY ALSO HAVE PONV. Past Psychological History: No Psychological Hx Reported Smoking Status: Never smoker Past Alcohol Use History: None Reported Past Drug Use History: None Reported - Past Family History Father Family Medical History: No Reported History Mother Family Medical History: No Reported History Medications and Allergies Home Medications Medication Instructions Recorded Confirmed Type L-Tyrosine 1 cap PO DAILY 07/27/20 07/27/20 History Loratadine [Alavert] 10 mg PO DAILY 07/27/20 07/27/20 History Magnesium 250 mg PO DAILY 07/27/20 07/27/20 History Multivitamins, Thera [Multivitamin 1 tab PO DAILY 07/27/20 07/27/20 History (formulary)] Vitamin B Complex 1 cap PO DAILY 07/27/20 07/27/20 History Acetaminophen Tab [Tylenol Tab] 1,000 mg PO Q6HR PRN #30 tablet 07/29/20 Rx Simethicone 40 mg/0.6 ml Drops 40 mg PO Q6HR PRN #30 ml 07/29/20 Rx [Mylicon Drops] Allergies Allergy/AdvReac Type Severity Reaction Status Date / Time venom-honey bee Allergy Severe Anaphylaxis Verified 07/27/20 13:28 [bee venom (honey bee)] Milk Containing Products Allergy Rash/Hives Verified 07/27/20 13:28 gluten AdvReac Abdominal Verified 07/27/20 13:28 Pain Surgical - Exam Vital Signs Temp Pulse Resp BP Pulse Ox 98.5 F 84 18 147/100 98 07/27/20 10:21 07/27/20 10:21 07/27/20 10:21 07/27/20 10:21 07/27/20 10:21 Results - Labs 07/28/20 11:30 07/27/20 10:52 Abnormal Lab Results - Last 24 Hours (Table) 07/27/20 07/27/20 07/27/20 Range/Units 10:52 10:52 10:52 Hct 33.5 L (34.0-46.0) % MCV 74.6 L (80.0-100.0) fL Lipase 364 H (23-300) U/L Urine Appearance Cloudy H (Clear) Urine Bacteria Moderate H (None) /hpf Urine Mucus Occasional H (None) /hpf Diabetes panel 07/27/20 Range/Units 10:52 Sodium 138 (137-145) mmol/L Potassium 4.3 (3.5-5.1) mmol/L Chloride 106 (98-107) mmol/L Carbon Dioxide 23 (22-30) mmol/L BUN 15 (7-17) mg/dL Creatinine 0.69 (0.52-1.04) mg/dL Glucose 97 (74-99) mg/dL Calcium 9.1 (8.4-10.2) mg/dL AST 21 (14-36) U/L ALT 8 (4-34) U/L Alkaline Phosphatase 48 (38-126) U/L Total Protein 6.8 (6.3-8.2) g/dL Albumin 4.2 (3.5-5.0) g/dL Calcium panel 07/27/20 Range/Units 10:52 Calcium 9.1 (8.4-10.2) mg/dL Albumin 4.2 (3.5-5.0) g/dL Pituitary panel 07/27/20 Range/Units 10:52 Sodium 138 (137-145) mmol/L Potassium 4.3 (3.5-5.1) mmol/L Chloride 106 (98-107) mmol/L Carbon Dioxide 23 (22-30) mmol/L BUN 15 (7-17) mg/dL Creatinine 0.69 (0.52-1.04) mg/dL Glucose 97 (74-99) mg/dL Calcium 9.1 (8.4-10.2) mg/dL Adrenal panel 07/27/20 Range/Units 10:52 Sodium 138 (137-145) mmol/L Potassium 4.3 (3.5-5.1) mmol/L Chloride 106 (98-107) mmol/L Carbon Dioxide 23 (22-30) mmol/L BUN 15 (7-17) mg/dL Creatinine 0.69 (0.52-1.04) mg/dL Glucose 97 (74-99) mg/dL Calcium 9.1 (8.4-10.2) mg/dL Total Bilirubin 0.4 (0.2-1.3) mg/dL AST 21 (14-36) U/L ALT 8 (4-34) U/L Alkaline Phosphatase 48 (38-126) U/L Total Protein 6.8 (6.3-8.2) g/dL Albumin 4.2 (3.5-5.0) g/dL Assessment and Plan (1) Hematemesis Status: Acute Code(s): K92.0 - HEMATEMESIS SNOMED Code(s): 3497295 (2) Bariatric surgery status Status: Acute Code(s): Z98.84 - BARIATRIC SURGERY STATUS SNOMED Code(s): 840171284 (3) Dehydration Status: Acute Code(s): E86.0 - DEHYDRATION SNOMED Code(s): 28013590 (4) Epigastric abdominal pain Status: Acute Code(s): R10.13 - EPIGASTRIC PAIN SNOMED Code(s): 47214620 (5) Gastric stenosis Status: Acute Code(s): K31.2 - HOURGLASS STRICTURE AND STENOSIS OF STOMACH SNOMED Code(s): 74288729 (6) History of gastric ulcer Status: Acute Code(s): Z87.11 - PERSONAL HISTORY OF PEPTIC ULCER DISEASE SNOMED Code(s): 740045922
--- NOTE | 2020-07-28 10:44 | P.PCN ---
Date of Procedure: 07/28/20 Description of Procedure: PREOPERATIVE DIAGNOSIS: Dysphagia. Intractable nausea and vomiting Morbid obesity due to excess calories, 42.4 History of gastric bypass POSTOPERATIVE DIAGNOSIS: Dysphagia. Intractable nausea and vomiting Morbid obesity due to excess calories, 42.4 History of gastric bypass Gastrojejunal stricture without chronic ulcer without perforation OPERATION: Esophagogastrojejunoscopy with balloon dilatation, 20 mm. SURGEON: Suad Sharif MD ANESTHESIA: MAC. INDICATIONS: The patient is a 30-year-old female who presents with a history of dysphagia, gastric bypass including new-onset nausea and vomiting. Benefits and risks of the procedure were described. Informed consent was obtained. DESCRIPTION: The patient was brought into the endoscopy suite and laid in the left lateral decubitus position. After a timeout was confirmed, the procedure was initiated. An Olympus gastroscope was passed along the posterior oropharynx down to the distal esophagus where the squamocolumnar junction was unremarkable. The gastric pouch was entered. A gastrojejunal stricture of 15 mm was found as the adult gastroscope was 9.5 mm in size. A adjust balloon dilator was placed through the scope. Final insufflation up to 20 mm was performed with a total of 2 minutes. The scope was advanced up to 60 cm from the incisors into the [place] limb. The mucosa of the gastrojejunal anastomosis was intact. No chronic gastrojejunal marginal ulcer was encountered. No full-thickness injury was encountered. The GI tract was desufflated. The patient tolerated the procedure well. FINDINGS: Squamocolumnar junction unremarkable at 40 cm. Stricture of approximately 15 mm encountered. No chronic gastrojejunal ulceration encountered. Successful balloon dilatation to 20 mm. Diaphragmatic hiatus at 40 cm. Gastric pouch 3 cm. RECOMMENDATIONS: Upper endoscopy as needed
[2020-07-28] MEDS: PANTOPRAZOLE 40 MG/10 ML VIAL IVP SCH (11:24)
[2020-07-28] MEDS: SODIUM CHLORIDE 0.9% 1,000 ML IV SCH ×2 (11:24→19:17)
[2020-07-28 11:59] LABS: Basophils % (A) 1 %; Eosinophils # (A) 0.1 k/uL (0-0.7); Eosinophils % (A) 1 %; HCT 31.4 % (34.0-46.0); HGB 10.8 gm/dL (11.4-16.0); Lymphocytes # (A) 1.4 k/uL (1.0-4.8); Lymphocytes % (A) 24 %; MCHC 34.3 g/dL (31.0-37.0); MCV 75.9 fL (80.0-100.0); Monocytes # (A) 0.3 k/uL (0-1.0); Monocytes % (A) 5 %; Neutrophils # (A) 3.9 k/uL (1.3-7.7); Neutrophils % (A) 67 %; Platelet Count 221 k/uL (150-450); RBC 4.13 m/uL (3.80-5.40); RDW 13.2 % (11.5-15.5); WBC 5.8 k/uL (3.8-10.6)
[2020-07-29] MEDS: MORPHINE SULFATE 4 MG/ML SYRINGE IV PRN ×4 (00:05→17:47)
[2020-07-29] MEDS: SODIUM CHLORIDE 0.9% 1,000 ML IV SCH ×4 (00:07→20:43)
[2020-07-29] MEDS: ONDANSETRON 4 MG/2 ML VIAL IVP PRN (04:15)
[2020-07-29] MEDS: PANTOPRAZOLE 40 MG/10 ML VIAL IVP SCH (08:26)
--- NOTE | 2020-07-29 10:40 | P.PN ---
Subjective Progress Note Date: 07/29/20 CHIEF COMPLAINT: Epigastric abdominal pain HISTORY OF PRESENT ILLNESS: The patient is a 30-year-old female presents with moderate severe epigastric abdominal pain and history of gastric bypass. She h ad an upper endoscopy with balloon dilation. Separately she had a normal computed tomography scan for bowel distention. Her pain is still persistent. ROS: No reports of nausea and vomiting. No bowel movements. No fevers or chills. No new chest pain. No productive sputum PHYSICAL EXAM: VITAL SIGNS: Reviewed CONSTITUTIONAL: Well developed and in no acute distress. EYES: Conjuctivae without sclera icterus. Extraocular movements grossly intact. HEAD, EARS, NOSE, THROAT: Moist buccal mucosa. Head is atraumatic, normocephalic. Hears conversational speech. No nasal drainage. NECK: Supple. No thyroidomegaly. RESPIRATORY: Non-labored respirations and equal bilateral excursions. CARDIOVASCULAR: Palpable 2+ radial pulses. Regular rate. Regular rhythm. ABDOMEN: Tender along the epigastrium at prior incision MUSCULOSKELETAL: No gross deformity of the lower extremities noted. No cl ubbing. No cyanosis. SKIN: Good skin turgor. Well perfused. NEUROLOGIC: Cranial nerves II through XII grossly intact. No focal or lateralizing signs. PSYCH: Appropriate affect. Alert and oriented to person, place and time. CLINICAL LABS: White blood cell count normal, WBC prior 5.8. Hemoglobin 10.8 with anemia. ASSESSMENT: 1. Epigastric abdominal pain with history of hematemesis 2. History of gastric bypass PLAN: 1. She has abnormal computed tomography scan with dilation of her jejunojejunostomy. With her multiple abdominal surgeries, she is at risk for small bowel obstructions with history of gastric bypass 2. Recommend proceeding with robotic lysis of adhesions. Patient's elevated risk due to BMI of 40+ 3. Recommend bariatric labs for moderate anemia Objective - Vital Signs Vital signs: Vital Signs Temp 98.1 F 07/29/20 08:00 Pulse 80 07/29/20 08:00 Resp 16 07/29/20 08:00 BP 121/73 07/29/20 08:00 Pulse Ox 97 07/29/20 08:00 Intake & Output 07/28/20 07/29/20 07/29/20 18:59 06:59 18:59 Intake Total 1140 250 Balance 1140 250 Intake: IV 120 Intake, IV Titration 300 Amount Sodium Chloride 0.9% 1, 300 000 ml @ 150 mls/hr IV . Q6H40M COUNTS INCLUDE 234 BEDS AT THE [facility] Rx#:[id number] Oral 720 250 Other: Voiding Method Toilet Toilet # Voids 2 3 - Labs CBC & Chem 7: 07/28/20 11:30 07/27/20 10:52 Labs: Abnormal Lab Results - Last 24 Hours (Table) 07/28/20 Range/Units 11:30 Hgb 10.8 L (11.4-16.0) gm/dL Hct 31.4 L (34.0-46.0) % MCV 75.9 L (80.0-100.0) fL Assessment and Plan (1) Coffee ground emesis Current Visit: Yes Status: Acute Code(s): K92.0 - HEMATEMESIS SNOMED Code(s): 52960800 (2) Epigastric abdominal pain Current Visit: Yes Status: Acute Code(s): R10.13 - EPIGASTRIC PAIN SNOMED Code(s): 44932493 (3) BMI 40.0-44.9, adult Current Visit: No Status: Acute Code(s): Z68.41 - BODY MASS INDEX [BMI]40.0- 44.9, ADULT SNOMED Code(s): 614903319 (4) Gastric stenosis Current Visit: No Status: Acute Code(s): K31.2 - HOURGLASS STRICTURE AND STENOSIS OF STOMACH SNOMED Code(s): 47351721 (5) Peritoneal adhesions Current Visit: No Status: Acute Code(s): K66.0 - PERITONEAL ADHESIONS (POSTPROCEDURAL) (POSTINFECTION) SNOMED Code(s): 636845119 (6) Status post gastric bypass for obesity Current Visit: No Status: Acute Code(s): Z98.84 - BARIATRIC SURGERY STATUS SNOMED Code(s): 486372789
[2020-07-29 12:46] LABS: Cholesterol 152 mg/dL (<200); HDL Cholesterol 33 mg/dL (40-60); LDL Cholesterol,Calculated 99 mg/dL (0-99); Magnesium 1.9 mg/dL (1.6-2.3); Phosphorus 4.1 mg/dL (2.5-4.5); Triglycerides 101 mg/dL (<150)
[2020-07-29] MEDS ORDERED: IV FLUID CONTINUATION 1,000 ML IV ONE (13:14)
[2020-07-29] MEDS ORDERED: BUPIVACAINE (PF) 0.25% 30 ML VIAL SQ ONE ×2 (13:25→14:07)
[2020-07-29] MEDS ORDERED: SCOPOLAMINE 1.5MG/72HR PATCH TRANSDERM ONE (13:31)
[2020-07-29] MEDS ORDERED: DEXAMETHASONE SOD PHOSPHATE 4 MG/ML 1 ML VIAL IV ONE (13:31)
[2020-07-29] MEDS ORDERED: ONDANSETRON 4 MG/2 ML VIAL IVP ONE ×2 (13:31→15:15)
[2020-07-29] MEDS ORDERED: ceFAZolin 3 GM in SODIUM CHLORIDE 0.9% 100 ML IVPB ONE (13:32)
[2020-07-29] MEDS ORDERED: HEPARIN SODIUM,PORCINE/PF 5,000 UNIT/0.5 ML SYRINGE SQ STA (13:34)
[2020-07-29] MEDS ORDERED: LIDOCAINE 1% INJ 10MG/ML (20 ML MDV) ONE (13:35)
[2020-07-29] MEDS ORDERED: PROPOFOL 10 MG/ML 20 ML VIAL IV ONE (13:35)
[2020-07-29] MEDS ORDERED: NEOSTIGMINE 1 MG/ML 10 ML VIAL ONE (13:35)
[2020-07-29] MEDS ORDERED: HEPARIN SODIUM,PORCINE 5,000 UNIT/ML 1 ML VIAL ONE (13:35)
[2020-07-29] MEDS ORDERED: SUCCINYLCHOLINE CHLORIDE 100 MG/5 ML SYR IV ONE (13:35)
[2020-07-29] MEDS ORDERED: fentaNYL (PF) 50 MCG/ML 2 ML AMP ONE (13:35)
[2020-07-29] MEDS ORDERED: GLYCOPYRROLATE 0.2 MG/ML 2 ML VIAL ONE (13:35)
[2020-07-29] MEDS ORDERED: MIDAZOLAM 2 MG/2 ML VIAL ONE (13:35)
[2020-07-29] MEDS ORDERED: ROCURONIUM 10 MG/ML (5 ML VIAL) IV ONE (13:35)
[2020-07-29] MEDS ORDERED: ePHEDrine SULFATE/0.9% NACL/PF 50 MG/5 ML SYRINGE IV ONE (13:35)
[2020-07-29] MEDS ORDERED: LACTATED RINGERS 1,000 ML IV ONE (14:41)
[2020-07-29] MEDS ORDERED: HYDROmorphone 0.5 MG/0.5 ML SYRINGE IVP ONE ×4 (15:20→15:40)
--- NOTE | 2020-07-29 15:20 | P.OP ---
Date of Procedure: 07/29/20 Description of Procedure: SURGEON: MAVERICK FLANNERY MD PREOPERATIVE DIAGNOSES: 1. Epigastric abdominal pain 2. Abnormal computed tomography scan with small bowel dilation 3. History of gastric bypass 4. History of small bowel obstruction 5. Morbid obesity due to excess calories, 42.4 6. Hematemesis 7. History of peritoneal adhesions POSTOPERATIVE DIAGNOSES: 1. Epigastric abdominal pain with peritoneal adhesions 2. Abnormal computed tomography scan with small bowel dilation 3. History of gastric bypass 4. History of small bowel obstruction 5. Morbid obesity due to excess calories, 42.4 6. Hematemesis 7. Diverticulosis OPERATION: 1. Robotic-assisted da Jaden Xi laparoscopic with extensive lysis of adhesions 1 hr ESTIMATED BLOOD LOSS: 5 mL. SPECIMENS REMOVED: None. COMPLICATIONS: None. OPERATIVE FINDINGS: 1. No ventral hernias identified. 2. Adhesions along the epigastrium 3. Complete scarring of Carrera defect and jejunojejunostomy mesenteric defect 4. Adhesion of gastrojejunal anastomosis to the anterior abdominal wall released 5. Abnormal adhesions of biliopancreatic limb jejunostomy to neeru limb divided 6. Normal terminal ileum and cecum unremarkable. INDICATIONS: The patient is a 30-year-old female who presents with epigastric abdominal pain including recent hematemesis. Surgical intervention with diagnostic laparoscopy, lysis of adhesions were described. Informed consent was obtained. Robotic assisted laparoscopic approach was described. Benefits and risks of the procedure including but not limited to bleeding, infection, injury to the small bowel was described. Informed consent was obtained. DESCRIPTION OF PROCEDURE: Patient was brought to the operating room, placed in supine position. After general induction, the abdomen had been prepped and draped in standard sterile fashion. The robotic da Jaden XI system was primed. After a timeout protocol was performed, the patient had been prepped and draped in standard sterile fashion. The robot was docked along the right lateral abdomen. The patient was repositioned in with right side up. Please note prior to docking of the robot; however, a 5 mm 0 degrees laparoscopic trocar entry was performed along the left upper quadrant. The abdomen was insufflated to 15 mmHg pressure which she tolerated well. Diagnostic laparoscopy was performed. Next, three 8 mm robotic ports were placed along the right lateral abdominal wall. The camera 8-mm port was maintained along mid-lateral abdomen. Please note that the ports were placed at least 10 to 15 cm away from the target anatomy. Instruments including graspers and vessel sealer were interchanged by the television production assistant. I had sat at the console. No evidence of incisional hernia was identified. The small bowel was dilated. The small bowel from the neeru limb to distal ileum was inspected. The small bowel was investigated from the terminal ileum to the ligament of Treitz. Abnormal adhesions to the jejunojejunostomy was identified and divided using vessel sealer. Adhesions along the epigastrium linvolving the neeru limb was lysed using vessel sealer. No herniation of bowel was found along the Carrera defect or jejunojejunostomy mesenteric defect. Adhesion of gastrojejunal anastomosis to the transverse colon was released. The terminal ileum and cecum was unremarkable. Extensive lysis of adhesions for 1 hr was performed. The small bowel was viable.The robot was undocked. All pneumoperitoneum instruments were evacuated from the abdominal cavity. The incisions were reapproximated using 4-0 Monocryl in an interrupted subcuticular fashion. Please note along the trocar sites, local anesthetic was placed as a field block prior to insertion of all instruments. Exofin was applied to the skin. At the end of the procedure needle, sponge, and instrument count had been verified correct by the surgical aides teacher. The patient was transferred to postanesthesia care unit in stable condition.
[2020-07-29] MEDS ORDERED: ACETAMINOPHEN TAB 500 MG TAB PO SCH (18:00)
[2020-07-29 20:24] VITALS: BP 121/74; PULSE 83; RESP 16; TEMP 98.2
[2020-07-29 20:46] LABS: Prothrombin Time 10.9 sec (9.9-11.9)
--- NOTE | 2020-07-29 22:03 | P.DS ---
Providers Date of admission: 07/27/20 13:43 Expected date of discharge: 07/29/20 Attending physician: Suad Sharif Primary care physician: Stated None - Discharge Diagnosis(es) (1) Hematemesis Status: Acute (2) Bariatric surgery status Status: Acute (3) Dehydration Status: Acute (4) Epigastric abdominal pain Status: Acute (5) Gastric stenosis Status: Acute (6) History of gastric ulcer Status: Acute (7) Peritoneal adhesions Status: Acute Hospital Course: POSTOPERATIVE DIAGNOSES: 1. Epigastric abdominal pain with peritoneal adhesions 2. Abnormal computed tomography scan with small bowel dilation 3. History of gastric bypass 4. History of small bowel obstruction 5. Morbid obesity due to excess calories, 42.4 6. Hematemesis 7. Diverticulosis COURSE: The patient is a 30-year-old female who presents with epigastric abdominal pain including recent hematemesis. She had an upper endoscopy with dilation for stricture. She still reported abdominal pain. Diagnostic laparoscopy was performed with findings of peritoneal adhesions. Her abdominal pain had improved following lysis of adhesions. She was tolerating diet, her pain was controlled, and she was stable for discharge. Procedures: OPERATION: 1. Robotic-assisted da Jaden Xi laparoscopic with extensive lysis of adhesions 1 hr ESTIMATED BLOOD LOSS: 5 mL. SPECIMENS REMOVED: None. COMPLICATIONS: None. OPERATIVE FINDINGS: 1. No ventral hernias identified. 2. Adhesions along the epigastrium 3. Complete scarring of Carrera defect and jejunojejunostomy mesenteric defect 4. Adhesion of gastrojejunal anastomosis to the anterior abdominal wall released 5. Abnormal adhesions of biliopancreatic limb jejunostomy to neeru limb divided 6. Normal terminal ileum and cecum unremarkable. Patient Condition at Discharge: Good Plan - Discharge Summary Discharge Rx Participant: Yes New Discharge Prescriptions: New Simethicone 40 mg/0.6 ml Drops [Mylicon Drops] 40 mg PO Q6HR PRN #30 ml PRN Reason: Abdominal Distention Acetaminophen Tab [Tylenol Tab] 1,000 mg PO Q6HR PRN #30 tablet PRN Reason: Pain Continue L-Tyrosine 1 cap PO DAILY Vitamin B Complex 1 cap PO DAILY Loratadine [Alavert] 10 mg PO DAILY Multivitamins, Thera [Multivitamin (formulary)] 1 tab PO DAILY Magnesium 250 mg PO DAILY Discharge Medication List L-Tyrosine 1 cap PO DAILY 07/27/20 [History] Loratadine [Alavert] 10 mg PO DAILY 07/27/20 [History] Magnesium 250 mg PO DAILY 07/27/20 [History] Multivitamins, Thera [Multivitamin (formulary)] 1 tab PO DAILY 07/27/20 [H istory] Vitamin B Complex 1 cap PO DAILY 07/27/20 [History] Acetaminophen Tab [Tylenol Tab] 1,000 mg PO Q6HR PRN #30 tablet 07/29/20 [Rx] Simethicone 40 mg/0.6 ml Drops [Mylicon Drops] 40 mg PO Q6HR PRN #30 ml 07/29/20 [Rx] Follow up Appointment(s)/Referral(s): Suad Sharif MD [STAFF PHYSICIAN] - 1 Week None,Stated [Primary Care Provider] - 08/02/20 Patient Instructions/Handouts: Lysis of Abdominal Adhesions (IP) Activity/Diet/Wound Care/Special Instructions: No lifting over 10 pounds in 2 weeks until August 12. May shower. No bath tub soaks for two weeks until August 12. Diet as tolerated. No driving while on narcotics. Use Tylenol scheduled for the next 24-48 hours for best pain relief. Use ice along incisions for today to prevent swelling. Discharge Disposition: HOME SELF-CARE
[2020-07-29 23:29] LABS: Ferritin 4.6 ng/mL (10.0-291.0); Folate, Serum 16.5 ng/mL; Iron 27 ug/dL (50-170); Total Iron Binding Capacity 397 ug/dL (228-460)
[2020-07-29 23:46] LABS: Hemoglobin A1C 5.8 % (4.0-6.0)
[2020-08-01 12:49] LABS: Zinc, Serum 95 ug/dL (60-130)
[2020-08-01 17:56] LABS: Vitamin D, 1, 25-Dihydroxy 93 pg/mL (20 - 79)
[2020-08-01 18:26] LABS: Selenium 104 mcg/L (63-160)
[2020-08-02 07:08] LABS: Vitamin A 27 ug/dL (38-106)
[2020-08-04 10:22] LABS: Vit B1(Thiamine) 60 ug/L (38-122)
== END 2020-07-29 20:51 | disposition home or self-care (01) | DRG 336 ==
LOC: EC 10:18 → 6NMEDSUR 13:43 → OBSVTOIN 07-29 14:37 → UNDODISOB 07-29 20:51
PROVIDERS: ADMIT Surgery Plastic and Reconstructive Surgery; ATTEND Surgery Plastic and Reconstructive Surgery
PROC: 0DJ08ZZ Inspection of Upper Intestinal Tract, Via Natural or Artificial Opening Endoscopic (ICD-10-PCS; 2020-07-28)
PROC: 0DNW4ZZ Release Peritoneum, Percutaneous Endoscopic Approach (ICD-10-PCS; principal; 2020-07-29 15:35)
PROC: 8E0W4CZ Robotic Assisted Procedure of Trunk Region, Percutaneous Endoscopic Approach (ICD-10-PCS; principal; 2020-07-29 15:35)
DX: K66.0 Peritoneal adhesions (postprocedural) (postinfection) (principal); K92.0 Hematemesis; Z68.41 Body mass index [BMI] 40.0-44.9, adult; K22.2 Esophageal obstruction; R10.13 Epigastric pain; R50.9 Fever, unspecified; E86.0 Dehydration; Z98.84 Bariatric surgery status; Z87.11 Personal history of peptic ulcer disease; E66.01 Morbid (severe) obesity due to excess calories; K57.90 Diverticulosis of intestine, part unspecified, without perforation or abscess without bleeding; D64.9 Anemia, unspecified; K31.89 Other diseases of stomach and duodenum; R13.10 Dysphagia, unspecified; R63.0 Anorexia; R94.8 Abnormal results of function studies of other organs and systems; R73.03 Prediabetes; I11.9 Hypertensive heart disease without heart failure; M19.90 Unspecified osteoarthritis, unspecified site; K21.9 Gastro-esophageal reflux disease without esophagitis; Z20.822 Contact with and (suspected) exposure to COVID-19; G47.33 Obstructive sleep apnea (adult) (pediatric); Z90.49 Acquired absence of other specified parts of digestive tract; E07.9 Disorder of thyroid, unspecified; Z87.19 Personal history of other diseases of the digestive system; Z79.899 Other long term (current) drug therapy; Z91.030 Bee allergy status; Z91.011 Allergy to milk products; Z91.018 Allergy to other foods; Z84.89 Family history of other specified conditions; Z83.3 Family history of diabetes mellitus
CPT/HCPCS: 36415; 43249; 74177; 80053; 80061; 81001; 81025; 82150; 82525; 82607; 82652; 82728; 82746; 83036; 83540; 83550; 83605; 83690; 83735; 83970; 84100; 84255; 84425; 84443; 84590; 84630; 85025; 85610; 85730; 87635

== ENCOUNTER → 2020-08-09 | Outpatient (CLI) | payer BC ==
--- NOTE | 2020-08-10 08:24 | CT ---
EXAMINATION TYPE: CT abdomen pelvis w con DATE OF EXAM: 08/09/2020 HISTORY: Diverticulitis, abdomen pain CT DLP: 1703mGycm Automated Exposure Control for Dose Reduction was Utilized. CONTRAST: CT scan of the abdomen and pelvis is performed without oral but with IV Contrast, patient injected wi th 100 mL of Isovue 300. COMPARISON: CT abdomen and pelvis July 27, 2020 and older studies FINDINGS: LUNG BASES: No significant abnormality is appreciated. LIVER/GB: Cholecystectomy clips are redemonstrated. PANCREAS: No significant abnormality is seen. SPLEEN: Splenomegaly redemonstrated at 15.6 cm long axis coronal image 72. ADRENALS: No significant abnormality is seen. KIDNEYS: No significant abnormality is seen. BOWEL: Suboptimal evaluation of bowel without enteric contrast. Surgical changes from gastric bypass procedure are redemonstrated. No suspicious small or large bowel dilatation. Some scattered diverticu la in the left and sigmoid colon. There is new moderate ill-defined fluid and fat stranding in the mi d sigmoid colon of the central pelvis just left of midline consistent with acute diverticulitis seen best on axial image 87 just anterior to the uterine fundus. No free air. No well-formed fluid collect ion or drainable abscess noted. UTERUS/ADNEXA: Anteverted uterus redemonstrated. New small amount of free fluid in the pelvis is nons pecific. LYMPH NODES: No greater than 1cm abdominal or pelvic lymph nodes are appreciated. Reactive prominent left lower quadrant subcentimeter mesenteric lymph node seen on coronal images. OSSEOUS STRUCTURES: Posterior spur disc complex L4-L5 level effaces anterior thecal sac. OTHER: No significant additional abnormality is seen. IMPRESSION: CT findings consistent with a fairly moderate but uncomplicated acute diverticulitis mid sigmoid colon central pelvis just left of midline.
== END | disposition home or self-care (01) ==
LOC: RADCTMAIN 17:02
PROVIDERS: ATTEND Surgery Plastic and Reconstructive Surgery
DX: K57.32 Diverticulitis of large intestine without perforation or abscess without bleeding (principal)
CPT/HCPCS: 74177; Q9967

== ENCOUNTER 2021-04-05 11:39 | Emergency (ER) | payer BC, OTHER ==
[2021-04-05 11:50] VITALS: BP 153/85; TEMP 98.3
[2021-04-05 12:43] LABS: Appearance,Urine Cloudy (Clear); Bilirubin,Urine Negative (Negative); Blood,Urine Moderate (Negative); Color,Urine Yellow; Glucose,Urine (UA) Negative (Negative); Hyaline Casts,Urine 9 /lpf (0-2); Ketones,Urine Negative (Negative); Leukocyte Esterase,Urine Negative (Negative); Mucus,Urine Occasional /hpf; Nitrite,Urine Negative (Negative); PH, Urine 6.5 (5.0-8.0); Protein,Urine Negative (Negative); RBC,Urine 88 /hpf (0-5); Specific Gravity,Urine 1.023 (1.001-1.035); Squamous Epithelial Cell,Urine <1 /hpf (0-4); Urobilinogen,Urine <2.0 mg/dL (<2.0); WBC,Urine 1 /hpf (0-5)
[2021-04-05 12:45] LABS: Basophils # (A) 0.1 k/uL (0-0.2); Basophils % (A) 1 %; Eosinophils # (A) 0.1 k/uL (0-0.7); Eosinophils % (A) 1 %; HCT 37.5 % (34.0-46.0); HGB 12.7 gm/dL (11.4-16.0); Lymphocytes # (A) 1.5 k/uL (1.0-4.8); Lymphocytes % (A) 23 %; MCH 27.1 pg (25.0-35.0); MCHC 33.8 g/dL (31.0-37.0); MCV 80.1 fL (80.0-100.0); Mean Platelet Volume 7.6; Monocytes # (A) 0.4 k/uL (0-1.0); Monocytes % (A) 7 %; Neutrophils # (A) 4.2 k/uL (1.3-7.7); Neutrophils % (A) 66 %; Platelet Count 329 k/uL (150-450); RBC 4.67 m/uL (3.80-5.40); RDW 12.9 % (11.5-15.5); WBC 6.3 k/uL (3.8-10.6)
[2021-04-05 12:55] LABS: Partial Thromboplastin Time 24.5 sec (22.0-30.0); Prothrombin Time 10.9 sec (9.0-12.0)
[2021-04-05 13:05] LABS: ALT 14 U/L (4-34); AST 26 U/L (14-36); African American GFR (CKD) >90 (>60 ml/min/1.73 sqM); Albumin 4.4 g/dL (3.5-5.0); Alkaline Phosphatase 61 U/L (38-126); Anion Gap 7 mmol/L; Blood Urea Nitrogen 13 mg/dL (7-17); Carbon Dioxide 25 mmol/L (22-30); Chloride 106 mmol/L (98-107); Glucose 95 mg/dL (74-99); Non-African American GFR(CKD) >90 (>60 ml/min/1.73 sqM); Potassium 4.6 mmol/L (3.5-5.1); Sodium 138 mmol/L (137-145); Total Bilirubin 0.4 mg/dL (0.2-1.3); Total Protein 7.2 g/dL (6.3-8.2)
--- NOTE | 2021-04-05 13:32 | ED ---
Female Urogenital HPI - General Chief complaint: Vaginal Bleeding Stated complaint: possible miscarriage Source: patient Mode of arrival: ambulatory Limitations: no limitations - History of Present Illness Initial comments: 31-year-old female presents emergency room with reported heavy vaginal bleeding. She reports that she has had heavy vaginal bleeding for the past 4 days. She is passing large clots. States that she has gone through 30 pads in the past 4 days. This is not normal for her normal menstrual cycles. She reports that she was supposed to start her cycle today and she is normally pretty regular. She does have some lower abdominal cramping. She has never been . Last menstrual cycle was March 08. She does not follow with an OB. She is sexua lly active. She remained appointment with an urgent care who told her that she needed to be seen in the emergency department for possible miscarriage. Patient denies that she had a positive test. He has not taken any medications for symptoms. Denies any abnormal vaginal discharge. No concern for sexually transmitted infections. No fevers. No other alleviating, precipitating or mod ifying factors - Related Data Home Medications Medication Instructions Recorded Confirmed L-Tyrosine 1 cap PO DAILY 07/27/20 08/08/20 Loratadine [Alavert] 10 mg PO DAILY 07/27/20 08/08/20 Magnesium 250 mg PO DAILY 07/27/20 08/08/20 Multivitamins, Thera [Multivitamin 1 tab PO DAILY 07/27/20 08/08/20 (formulary)] Vitamin B Complex 1 cap PO DAILY 07/27/20 08/08/20 Previous Rx's Medication Instructions Recorded Acetaminophen Tab [Tylenol Tab] 1,000 mg PO Q6HR PRN #30 tablet 07/29/20 Simethicone 40 mg/0.6 ml Drops 40 mg PO Q6HR PRN #30 ml 07/29/20 [Mylicon Drops] Mefenamic Acid 250 mg PO Q6HR PRN #30 capsule 04/05/21 Allergies Allergy/AdvReac Type Severity Reaction Status Date / Time venom-honey bee Allergy Severe Anaphylaxis Verified 04/05/21 11:49 [bee venom (honey bee)] Milk Containing Products Allergy Rash/Hives Verified 04/05/21 11:49 gluten AdvReac Abdominal Verified 04/05/21 11:49 Pain Review of Systems ROS Statement: Those systems with pertinent positive or pertinent negative responses have been documented in the HPI. ROS Other: All systems not noted in ROS Statement are negative. Past Medical History Past Medical History: Hypertension, Thyroid Disorder Additional Past Medical History / Comment(s): HX OF DIVERTICULITIS (2010), History of Any Multi-Drug Resistant Organisms: None Reported Past Surgical History: Bariatric Surgery, Cholecystectomy, Hernia Repair, Tonsillectomy Additional Past Surgical History / Comment(s): EGD 03/07/16, 05/21/16. , [id number] GASTRIC BYPASS (04/18/16) lysis of adhesions august 2016 Past Anesthesia/Blood Transfusion Reactions: Family History of Problems w/ Anesthesia, Motion Sickness, Postoperative Nausea & Vomiting (PONV) Additional Past Anesthesia/Blood Transfusion Reaction / Comment(s): IMMEDIATE FAMILY ALSO HAVE PONV. Past Psychological History: No Psychological Hx Reported Smoking Status: Never smoker - Past Family History Father Family Medical History: No Reported History Mother Family Medical History: No Reported History General Exam Limitations: no limitations Course Vital Signs 04/05/21 04/05/21 11:46 13:47 Temperature 98.3 F Pulse Rate 77 73 Respiratory 19 16 Rate Blood Pressure 153/85 O2 Sat by Pulse 97 98 Oximetry Medical Decision Making - Medical Decision Making Arrival patient was placed into room 30. A thorough history and physical exam was performed. Laboratory studies are conducted and patient provided urine sample. Hemoglobin is 12.7 from a previous of 10.8. Labs studies are normal. Urinalysis does demonstrate moderate blood with 88 red blood cells. HCG is negative. I did perform a pelvic exam which does not demonstrate any clotted blood. Very minimal bleeding. No tissue. Cervix is closed. I did discuss results with the patient. Patient will be discharged home at this time and needs to follow-up with either her primary care doctor or an AUTOMATIC COIN MACHINE MECHANIC for further evaluation of her dysmenorrhea. Return to the emergency room for any new or worsening symptoms. Patient given Ponstel for menstrual cramping. Patient discharged home in stable condition - Lab Data Result diagrams: 04/05/21 12:22 04/05/21 12:22 Lab Results 04/05/21 04/05/21 04/05/21 Range/Units 11:57 11:57 12:22 WBC 6.3 (3.8-10.6) k/uL RBC 4.67 (3.80-5.40) m/uL Hgb 12.7 (11.4-16.0) gm/dL Hct 37.5 (34.0-46.0) % MCV 80.1 (80.0-100.0) fL MCH 27.1 (25.0-35.0) pg MCHC 33.8 (31.0-37.0) g/dL RDW 12.9 (11.5-15.5) % Plt Count 329 (150-450) k/uL MPV 7.6 Neutrophils % 66 % Lymphocytes % 23 % Monocytes % 7 % Eosinophils % 1 % Basophils % 1 % Neutrophils # 4.2 (1.3-7.7) k/uL Lymphocytes # 1.5 (1.0-4.8) k/uL Monocytes # 0.4 (0-1.0) k/uL Eosinophils # 0.1 (0-0.7) k/uL Basophils # 0.1 (0-0.2) k/uL PT (9.0-12.0) sec INR (<1.2) APTT (22.0-30.0) sec Sodium (137-145) mmol/L Potassium (3.5-5.1) mmol/L Chloride (98-107) mmol/L Carbon Dioxide (22-30) mmol/L Anion Gap mmol/L BUN (7-17) mg/dL Creatinine (0.52-1.04) mg/dL Est GFR (CKD-EPI)AfAm (>60 ml/min/1.73 sqM) Est GFR (CKD-EPI)NonAf (>60 ml/min/1.73 sqM) Glucose (74-99) mg/dL Calcium (8.4-10.2) mg/dL Total Bilirubin (0.2-1.3) mg/dL AST (14-36) U/L ALT (4-34) U/L Alkaline Phosphatase (38-126) U/L Total Protein (6.3-8.2) g/dL Albumin (3.5-5.0) g/dL Urine Color Yellow Urine Appearance Cloudy H (Clear) Urine pH 6.5 (5.0-8.0) Ur Specific Halbur 1.023 (1.001-1.035) Urine Protein Negative (Negative) Urine Glucose (UA) Negative (Negative) Urine Ketones Negative (Negative) Urine Blood Moderate H (Negative) Urine Nitrite Negative (Negative) Urine Bilirubin Negative (Negative) Urine Urobilinogen <2.0 (<2.0) mg/dL Ur Leukocyte Esterase Negative (Negative) Urine RBC 88 H (0-5) /hpf Urine WBC 1 (0-5) /hpf Ur Squamous Epith Cells <1 (0-4) /hpf Hyaline Casts 9 H (0-2) /lpf Urine Mucus Occasional H (None) /hpf Urine HCG, Qual Not Detected (Not Detectd) 04/05/21 04/05/21 Range/Units 12:22 12:22 WBC (3.8-10.6) k/uL RBC (3.80-5.40) m/uL Hgb (11.4-16.0) gm/dL Hct (34.0-46.0) % MCV (80.0-100.0) fL MCH (25.0-35.0) pg MCHC (31.0-37.0) g/dL RDW (11.5-15.5) % Plt Count (150-450) k/uL MPV Neutrophils % % Lymphocytes % % Monocytes % % Eosinophils % % Basophils % % Neutrophils # (1.3-7.7) k/uL Lymphocytes # (1.0-4.8) k/uL Monocytes # (0-1.0) k/uL Eosinophils # (0-0.7) k/uL Basophils # (0-0.2) k/uL PT 10.9 (9.0-12.0) sec INR 1.0 (<1.2) APTT 24.5 (22.0-30.0) sec Sodium 138 (137-145) mmol/L Potassium 4.6 (3.5-5.1) mmol/L Chloride 106 (98-107) mmol/L Carbon Dioxide 25 (22-30) mmol/L Anion Gap 7 mmol/L BUN 13 (7-17) mg/dL Creatinine 0.80 (0.52-1.04) mg/dL Est GFR (CKD-EPI)AfAm >90 (>60 ml/min/1.73 sqM) Est GFR (CKD-EPI)NonAf >90 (>60 ml/min/1.73 sqM) Glucose 95 (74-99) mg/dL Calcium 10.0 (8.4-10.2) mg/dL Total Bilirubin 0.4 (0.2-1.3) mg/dL AST 26 (14-36) U/L ALT 14 (4-34) U/L Alkaline Phosphatase 61 (38-126) U/L Total Protein 7.2 (6.3-8.2) g/dL Albumin 4.4 (3.5-5.0) g/dL Urine Color Urine Appearance (Clear) Urine pH (5.0-8.0) Ur Specific [place] (1.001-1.035) Urine Protein (Negative) Urine Glucose (UA) (Negative) Urine Ketones (Negative) Urine Blood (Negative) Urine Nitrite (Negative) Urine Bilirubin (Negative) Urine Urobilinogen (<2.0) mg/dL Ur Leukocyte Esterase (Negative) Urine RBC (0-5) /hpf Urine WBC (0-5) /hpf Ur Squamous Epith Cells (0-4) /hpf Hyaline Casts (0-2) /lpf Urine Mucus (None) /hpf Urine HCG, Qual (Not Detectd) Disposition Clinical Impression: Dysfunctional uterine bleeding Disposition: HOME SELF-CARE Condition: Stable Instructions (If sedation given, give patient instructions): Dysmenorrhea (ED) Additional Instructions: Please follow-up with your primary care doctor or AUTOMATIC COIN MACHINE MECHANIC for further evaluation of your dysfunction uterine bleeding. Return to the emergency room for any new or worsening symptoms Prescriptions: Mefenamic Acid 250 mg PO Q6HR PRN #30 capsule PRN Reason: Pain Is patient prescribed a controlled substance at d/c from ED?: No Referrals: None,Stated [Primary Care Provider] - 1-2 days Suad Buchanan MD [STAFF PHYSICIAN] - 1-2 days Time of Disposition: 13:32
[2021-04-05 13:48] VITALS: PULSE 73; RESP 16
== END 2021-04-05 13:48 | disposition home or self-care (01) ==
LOC: EC 11:39
DX: N93.8 Other specified abnormal uterine and vaginal bleeding (principal); I10 Essential (primary) hypertension; E07.9 Disorder of thyroid, unspecified; Z98.84 Bariatric surgery status; Z90.49 Acquired absence of other specified parts of digestive tract
CPT/HCPCS: 36415; 80053; 81001; 81025; 85025; 85610; 85730; 99284

== ENCOUNTER 2021-11-26 22:00 | Emergency (ER) | payer OTHER ==
[2021-11-26 22:06] VITALS: BP 154/99; PULSE 106; RESP 18; TEMP 97.9
[2021-11-26] MEDS ORDERED: SODIUM CHLORIDE 0.9% 1,000 ML IV STA (22:27)
--- NOTE | 2021-11-26 22:35 | ED ---
General Adult HPI - General Chief complaint: Chest Pain Stated complaint: Anxiety Time Seen by Provider: 11/26/21 22:10 Source: patient, EMS, RN notes reviewed Mode of arrival: EMS Limitations: no limitations - History of Present Illness Initial comments: 31-year-old female presents to the emergency department for evaluation of diffuse chest tightness, onset this evening. Patient states she was at rest when this began and was accompanied by a racing heart sensation. States she looked at her Apple watch which showed a heart rate of 150 bpm. Patient states this episode occurred after ingesting a marijuana edible. States this is the only recreational drug that she uses and has not had a reaction in the past. Reports one cup of coffee today and no additional caffeinated products. Reports minimal stress and anxiety; no recent traumatic or difficult experiences. Denies fever, chills, headache, dizziness, shortness of breath, abdominal pain, nausea, vomiting, diarrhea, or dysuria. - Related Data Home Medications Medication Instructions Recorded Confirmed L-Tyrosine 1 cap PO DAILY 07/27/20 08/08/20 Loratadine [Alavert] 10 mg PO DAILY 07/27/20 08/08/20 Magnesium 250 mg PO DAILY 07/27/20 08/08/20 Multivitamins, Thera [Multivitamin 1 tab PO DAILY 07/27/20 08/08/20 (formulary)] Vitamin B Complex 1 cap PO DAILY 07/27/20 08/08/20 Previous Rx's Medication Instructions Recorded Acetaminophen Tab [Tylenol Tab] 1,000 mg PO Q6HR PRN #30 tablet 07/29/20 Simethicone 40 mg/0.6 ml Drops 40 mg PO Q6HR PRN #30 ml 07/29/20 [Mylicon Drops] Mefenamic Acid 250 mg PO Q6HR PRN #30 capsule 04/05/21 Allergies Allergy/AdvReac Type Severity Reaction Status Date / Time venom-honey bee Allergy Severe Anaphylaxis Verified 04/05/21 11:49 [bee venom (honey bee)] Milk Containing Products Allergy Rash/Hives Verified 04/05/21 11:49 gluten AdvReac Abdominal Verified 04/05/21 11:49 Pain Review of Systems ROS Statement: Those systems with pertinent positive or pertinent negative responses have been documented in the HPI. ROS Other: All systems not noted in ROS Statement are negative. Past Medical History Past Medical History: Hypertension, Thyroid Disorder Additional Past Medical History / Comment(s): HX OF DIVERTICULITIS (2010), History of Any Multi-Drug Resistant Organisms: None Reported Past Surgical History: Bariatric Surgery, Cholecystectomy, Hernia Repair, Tonsillectomy Additional Past Surgical History / Comment(s): EGD 03/07/16, 05/21/16. , АНДРЕЙ-EN-Y GASTRIC BYPASS (04/18/16) lysis of adhesions august 2016 Past Anesthesia/Blood Transfusion Reactions: Family History of Problems w/ Anesthesia, Motion Sickness, Postoperative Nausea & Vomiting (PONV) Additional Past Anesthesia/Blood Transfusion Reaction / Comment(s): IMMEDIATE FAMILY ALSO HAVE PONV. Past Psychological History: No Psychological Hx Reported Smoking Status: Never smoker Past Alcohol Use History: Occasional Past Drug Use History: Marijuana - Past Family History Father Family Medical History: No Reported History Mother Family Medical History: No Reported History General Exam Limitations: no limitations (Well-developed, well-nourished female in no acute distress. Initial temperature 97.9, pulse 106, respirations 18, blood pressure 154/99, pulse ox 96% on room air.) General appearance: alert, in no apparent distress Eye exam: Present: normal appearance, PERRL, EOMI. Absent: scleral icterus, conjunctival injection, nystagmus, periorbital swelling Pupils: Present: normal accommodation ENT exam: Present: normal exam, normal oropharynx, mucous membranes moist Respiratory exam: Present: normal lung sounds bilaterally. Absent: respiratory distress, wheezes, rales, rhonchi, stridor, chest wall tenderness Cardiovascular Exam: Present: normal rhythm, tachycardia, normal heart sounds GI/Abdominal exam: Present: soft, normal bowel sounds. Absent: distended, tenderness, guarding, rebound, rigid Extremities exam: Present: normal inspection, full ROM, normal capillary refill. Absent: tenderness, pedal edema, joint swelling, calf tenderness Back exam: Present: normal inspection. Absent: CVA tenderness (R), CVA te nderness (L), paraspinal tenderness, vertebral tenderness Neurological exam: Present: alert, oriented X3, CN II-XII intact Expanded Patient oriented to: Present: person, place, time Speech: Present: fluid speech Cranial nerves: EOM's Intact: Normal, Nystagmus: Normal Motor strength exam: RUE: 5, LUE: 5, RLE: 5, LLE: 5 Eye Response: (4) open spontaneously Motor Response: (6) obeys commands Verbal Response: (5) oriented [place] Total: 15 Psychiatric exam: Present: normal affect, normal mood Skin exam: Present: warm, dry, intact, normal color. Absent: rash Course Vital Signs 11/26/21 22:03 Temperature 97.9 F Pulse Rate 106 H Respiratory 18 Rate Blood Pressure 154/99 O2 Sat by Pulse 96 Oximetry - Reevaluation(s) Reevaluation #1: 11/26/21 23:40 Upon reassessment, patient is resting comfortably. She has received minimal amount of her IV fluid bolus therefore her IV was repositioned with improvement. Repeat VS: HR=82, RR=16, UF=117/79, SpO2=99%. Patient is aware of need for urine specimen. 11/27/21 01:00 Patient is feeling improved. She will be discharged home to follow up as needed. Return parameters discussed in detail. Patient verbalizes understanding and agrees with this plan. Medical Decision Making - Medical Decision Making This is a 31-year-old female with a past medical history of hypertension, thyroid disorder, diverticulitis, bariatric surgery and cholecystectomy presents to the emergency department for evaluation of tachycardia and chest tightness that occurred after ingesting marijuana edible. Upon exam, patient is resting comfortably and in no acute distress. Initially, heart rate and blood pressure are mildly elevated; no other significant physical exam finding. Patient was given IV fluids with improvement. Laboratory studies were reviewed showing hemoglobin 9.8 and hematocrit 31.1. Patient does have a history of iron deficiency anemia and is not taking any oral iron supplementation; denies any hematuria, hematochezia, or hematemesis. She is encouraged to increase fluids for hydration, consume iron-rich foods, and avoid recreational use of marijuana. Instructed to follow up with her PCP for a recheck in 48-72 hours. Return parameters discussed in detail. Patient verbalizes understanding and agrees with this plan. Attending:Jhonatan. - Lab Data Result diagrams: 11/26/21 22:44 11/26/21 22:44 Lab Results 11/26/21 11/26/21 11/26/21 Range/Units 22:44 22:44 22:44 WBC 7.1 (3.8-10.6) k/uL RBC 4.30 (3.80-5.40) m/uL Hgb 9.8 L (11.4-16.0) gm/dL Hct 31.1 L (34.0-46.0) % MCV 72.4 L (80.0-100.0) fL MCH 22.9 L (25.0-35.0) pg MCHC 31.6 (31.0-37.0) g/dL RDW 13.8 (11.5-15.5) % Plt Count 248 (150-450) k/uL MPV 7.5 Neutrophils % 69 % Lymphocytes % 21 % Monocytes % 7 % Eosinophils % 1 % Basophils % 1 % Neutrophils # 4.9 (1.3-7.7) k/uL Lymphocytes # 1.5 (1.0-4.8) k/uL Monocytes # 0.5 (0-1.0) k/uL Eosinophils # 0.1 (0-0.7) k/uL Basophils # 0.1 (0-0.2) k/uL Hypochromasia Slight Microcytosis Slight PT 10.5 (9.0-12.0) sec INR 1.0 (<1.2) APTT 22.6 (22.0-30.0) sec D-Dimer 0.20 (<0.60) mg/L FEU Sodium 133 L (137-145) mmol/L Potassium 3.8 (3.5-5.1) mmol/L Chloride 103 (98-107) mmol/L Carbon Dioxide 23 (22-30) mmol/L Anion Gap 7 mmol/L BUN 21 H (7-17) mg/dL Creatinine 0.78 (0.52-1.04) mg/dL Est GFR (CKD-EPI)AfAm >90 (>60 ml/min/1.73 sqM) Est GFR (CKD-EPI)NonAf >90 (>60 ml/min/1.73 sqM) Glucose 152 H (74-99) mg/dL Calcium 8.9 (8.4-10.2) mg/dL Magnesium 1.7 (1.6-2.3) mg/dL Total Bilirubin 0.3 (0.2-1.3) mg/dL AST 28 (14-36) U/L ALT 13 (4-34) U/L Alkaline Phosphatase 50 (38-126) U/L Troponin I (0.000-0.034) ng/mL Total Protein 6.4 (6.3-8.2) g/dL Albumin 4.0 (3.5-5.0) g/dL Urine Color Urine Appearance (Clear) Urine pH (5.0-8.0) Ur Specific [place] (1.001-1.035) Urine Protein (Negative) Urine Glucose (UA) (Negative) Urine Ketones (Negative) Urine Blood (Negative) Urine Nitrite (Negative) Urine Bilirubin (Negative) Urine Urobilinogen (<2.0) mg/dL Ur Leukocyte Esterase (Negative) Urine RBC (0-5) /hpf Urine WBC (0-5) /hpf Ur Squamous Epith Cells (0-4) /hpf Amorphous Sediment (None) /hpf Urine Bacteria (None) /hpf Urine Opiates Screen (NotDetected) Ur Oxycodone Screen (NotDetected) Urine Methadone Screen (NotDetected) Ur Propoxyphene Screen (NotDetected) Ur Barbiturates Screen (NotDetected) U Tricyclic Antidepress (NotDetected) Ur Phencyclidine Scrn (NotDetected) Ur Amphetamines Screen (NotDetected) U Methamphetamines Scrn (NotDetected) U Benzodiazepines Scrn (NotDetected) Urine Cocaine Screen (NotDetected) U Marijuana (THC) Screen (NotDetected) 11/26/21 11/27/21 Range/Units 22:44 00:49 WBC (3.8-10.6) k/uL RBC (3.80-5.40) m/uL Hgb (11.4-16.0) gm/dL Hct (34.0-46.0) % MCV (80.0-100.0) fL MCH (25.0-35.0) pg MCHC (31.0-37.0) g/dL RDW (11.5-15.5) % Plt Count (150-450) k/uL MPV Neutrophils % % Lymphocytes % % Monocytes % % Eosinophils % % Basophils % % Neutrophils # (1.3-7.7) k/uL Lymphocytes # (1.0-4.8) k/uL Monocytes # (0-1.0) k/uL Eosinophils # (0-0.7) k/uL Basophils # (0-0.2) k/uL Hypochromasia Microcytosis PT (9.0-12.0) sec INR (<1.2) APTT (22.0-30.0) sec D-Dimer (<0.60) mg/L FEU Sodium (137-145) mmol/L Potassium (3.5-5.1) mmol/L Chloride (98-107) mmol/L Carbon Dioxide (22-30) mmol/L Anion Gap mmol/L BUN (7-17) mg/dL Creatinine (0.52-1.04) mg/dL Est GFR (CKD-EPI)AfAm (>60 ml/min/1.73 sqM) Est GFR (CKD-EPI)NonAf (>60 ml/min/1.73 sqM) Glucose (74-99) mg/dL Calcium (8.4-10.2) mg/dL Magnesium (1.6-2.3) mg/dL Total Bilirubin (0.2-1.3) mg/dL AST (14-36) U/L ALT (4-34) U/L Alkaline Phosphatase (38-126) U/L Troponin I <0.012 (0.000-0.034) ng/mL Total Protein (6.3-8.2) g/dL Albumin (3.5-5.0) g/dL Urine Color Light Yellow Urine Appearance Cloudy H (Clear) Urine pH 7.0 (5.0-8.0) Ur Specific [place] 1.011 (1.001-1.035) Urine Protein Negative (Negative) Urine Glucose (UA) Negative (Negative) Urine Ketones Negative (Negative) Urine Blood Large H (Negative) Urine Nitrite Negative (Negative) Urine Bilirubin Negative (Negative) Urine Urobilinogen <2.0 (<2.0) mg/dL Ur Leukocyte Esterase Negative (Negative) Urine RBC 9 H (0-5) /hpf Urine WBC 4 (0-5) /hpf Ur Squamous Epith Cells 3 (0-4) /hpf Amorphous Sediment Rare H (None) /hpf Urine Bacteria Rare H (None) /hpf Urine Opiates Screen Not Detected (NotDetected) Ur Oxycodone Screen Not Detected (NotDetected) Urine Methadone Screen Not Detected (NotDetected) Ur Propoxyphene Screen Not Detected (NotDetected) Ur Barbiturates Screen Not Detected (NotDetected) U Tricyclic Antidepress Not Detected (NotDetected) Ur Phencyclidine Scrn Not Detected (NotDetected) Ur Amphetamines Screen Not Detected (NotDetected) U Methamphetamines Scrn Not Detected (NotDetected) U Benzodiazepines Scrn Not Detected (NotDetected) Urine Cocaine Screen Not Detected (NotDetected) U Marijuana (THC) Screen Not Detected (NotDetected) - EKG Data EKG shows normal: sinus rhythm Rate: tachycardia EKG Comments: EKG obtained at 2214 shows sinus tachycardia with ventricular rate 100, [place] interval 170, QRS duration 81, QT/QTC 326/383. Interpretation abnormal rhythm ECG. - Radiology Data Radiology results: report reviewed, image reviewed Two-view chest x-ray is obtained. Report was reviewed in its entirety. Impression per Dr. Jorgensen is normal chest. Disposition Clinical Impression: Tachycardia, Palpitations Disposition: HOME SELF-CARE Instructions (If sedation given, give patient instructions): Tachycardia (ED) Additional Instructions: Increase oral fluids. Decrease caffeine intake. Follow up with primary care. Return to the emergency department with any new, worsening, or concerning symptoms. Is patient prescribed a controlled substance at d/c from ED?: No Referrals: None,Stated [Primary Care Provider] - 1-2 days
[2021-11-26 22:50] LABS: Basophils # (A) 0.1 k/uL (0-0.2); Basophils % (A) 1 %; Eosinophils # (A) 0.1 k/uL (0-0.7); Eosinophils % (A) 1 %; HCT 31.1 % (34.0-46.0); HGB 9.8 gm/dL (11.4-16.0); Hypochromasia Slight; Lymphocytes # (A) 1.5 k/uL (1.0-4.8); Lymphocytes % (A) 21 %; MCH 22.9 pg (25.0-35.0); MCHC 31.6 g/dL (31.0-37.0); MCV 72.4 fL (80.0-100.0); Mean Platelet Volume 7.5; Microcytosis Slight; Monocytes # (A) 0.5 k/uL (0-1.0); Monocytes % (A) 7 %; Neutrophils # (A) 4.9 k/uL (1.3-7.7); Neutrophils % (A) 69 %; Platelet Count 248 k/uL (150-450); RDW 13.8 % (11.5-15.5); WBC 7.1 k/uL (3.8-10.6)
[2021-11-26 22:58] LABS: ALT 13 U/L (4-34); AST 28 U/L (14-36); African American GFR (CKD) >90 (>60 ml/min/1.73 sqM); Alkaline Phosphatase 50 U/L (38-126); Anion Gap 7 mmol/L; Blood Urea Nitrogen 21 mg/dL (7-17); Calcium 8.9 mg/dL (8.4-10.2); Carbon Dioxide 23 mmol/L (22-30); Chloride 103 mmol/L (98-107); Glucose 152 mg/dL (74-99); Magnesium 1.7 mg/dL (1.6-2.3); Non-African American GFR(CKD) >90 (>60 ml/min/1.73 sqM); Potassium 3.8 mmol/L (3.5-5.1); Sodium 133 mmol/L (137-145); Total Bilirubin 0.3 mg/dL (0.2-1.3); Total Protein 6.4 g/dL (6.3-8.2)
--- NOTE | 2021-11-26 23:01 | XR ---
EXAMINATION TYPE: XR chest 2V DATE OF EXAM: 11/26/2021 COMPARISON: NONE HISTORY: Pain TECHNIQUE: 2 views FINDINGS: Heart and mediastinum are normal. Lungs are clear. Diaphragm is normal. Bony thorax is inta ct. IMPRESSION: Normal chest.
[2021-11-26 23:20] LABS: Partial Thromboplastin Time 22.6 sec (22.0-30.0); Prothrombin Time 10.5 sec (9.0-12.0)
[2021-11-27 01:12] LABS: Amorphous Sediment,Urine Rare /hpf; Appearance,Urine Cloudy (Clear); Bacteria,Urine Rare /hpf; Bilirubin,Urine Negative (Negative); Blood,Urine Large (Negative); Color,Urine Light Yellow; Glucose,Urine (UA) Negative (Negative); Ketones,Urine Negative (Negative); Leukocyte Esterase,Urine Negative (Negative); Nitrite,Urine Negative (Negative); Protein,Urine Negative (Negative); RBC,Urine 9 /hpf (0-5); Specific Gravity,Urine 1.011 (1.001-1.035); Squamous Epithelial Cell,Urine 3 /hpf (0-4); Urobilinogen,Urine <2.0 mg/dL (<2.0); WBC,Urine 4 /hpf (0-5)
[2021-11-27 01:27] LABS: Amphetamine Screen,Urine Not Detected (NotDetected); Barbiturate Screen,Urine Not Detected (NotDetected); Benzodiazepines Screen,Urine Not Detected (NotDetected); Cocaine Screen,Urine Not Detected (NotDetected); Methadone Screen, Urine Not Detected (NotDetected); Opiate Screen,Urine Not Detected (NotDetected); Oxycodone Screen, Urine Not Detected (NotDetected); Phencyclidine Screen,Urine Not Detected (NotDetected); Tricyclic Antidepressant,Urine Not Detected (NotDetected); Urn Cannabinoid Scrn Not Detected (NotDetected)
== END 2021-11-27 01:41 | disposition home or self-care (01) ==
LOC: EC 22:00
DX: R00.0 Tachycardia, unspecified (principal); R00.2 Palpitations; F41.9 Anxiety disorder, unspecified; Z91.030 Bee allergy status; Z91.011 Allergy to milk products; Z91.048 Other nonmedicinal substance allergy status
CPT/HCPCS: 36415; 71046; 80053; 80306; 81001; 83735; 84484; 85025; 85379; 85610; 85730; 93005; 96360; 96361; 99285

== ENCOUNTER 2021-11-27 15:59 | Emergency (ER) | payer OTHER ==
[2021-11-27 16:21] VITALS: TEMP 98.2
[2021-11-27 18:03] VITALS: RESP 16
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
[2021-11-27 19:34] LABS: Amphetamine Screen,Urine Not Detected (NotDetected); Barbiturate Screen,Urine Not Detected (NotDetected); Benzodiazepines Screen,Urine Not Detected (NotDetected); Cocaine Screen,Urine Not Detected (NotDetected); Methadone Screen, Urine Not Detected (NotDetected); Opiate Screen,Urine Not Detected (NotDetected); Oxycodone Screen, Urine Not Detected (NotDetected); Phencyclidine Screen,Urine Not Detected (NotDetected); Tricyclic Antidepressant,Urine Not Detected (NotDetected); Urn Cannabinoid Scrn Detected (NotDetected)
[2021-11-27 19:36] LABS: ALT 11 U/L (4-34); AST 27 U/L (14-36); African American GFR (CKD) >90 (>60 ml/min/1.73 sqM); Albumin 4.1 g/dL (3.5-5.0); Alkaline Phosphatase 54 U/L (38-126); Anion Gap 8 mmol/L; Blood Urea Nitrogen 13 mg/dL (7-17); Carbon Dioxide 23 mmol/L (22-30); Chloride 105 mmol/L (98-107); Glucose 96 mg/dL (74-99); Non-African American GFR(CKD) >90 (>60 ml/min/1.73 sqM); Potassium 4.1 mmol/L (3.5-5.1); Sodium 136 mmol/L (137-145); Total Bilirubin 0.2 mg/dL (0.2-1.3); Total Protein 6.6 g/dL (6.3-8.2)
[2021-11-27 21:19] LABS: Basophils % (A) 1 %; Eosinophils # (A) 0.2 k/uL (0-0.7); Eosinophils % (A) 2 %; HCT 31.2 % (34.0-46.0); HGB 10.1 gm/dL (11.4-16.0); Hypochromasia Slight; Lymphocytes # (A) 2.1 k/uL (1.0-4.8); Lymphocytes % (A) 34 %; MCH 23.8 pg (25.0-35.0); MCHC 32.3 g/dL (31.0-37.0); MCV 73.7 fL (80.0-100.0); Mean Platelet Volume 7.3; Microcytosis Slight; Monocytes # (A) 0.4 k/uL (0-1.0); Monocytes % (A) 6 %; Neutrophils # (A) 3.3 k/uL (1.3-7.7); Neutrophils % (A) 54 %; Platelet Count 250 k/uL (150-450); RBC 4.24 m/uL (3.80-5.40); RDW 14.2 % (11.5-15.5)
[2021-11-27 21:35] VITALS: BP 135/68; PULSE 64
== END 2021-11-27 22:30 | disposition home or self-care (01) ==
LOC: EC 15:59
DX: F41.0 Panic disorder [episodic paroxysmal anxiety] (principal); I10 Essential (primary) hypertension; Z20.822 Contact with and (suspected) exposure to COVID-19; Z91.011 Allergy to milk products; Z88.8 Allergy status to other drugs, medicaments and biological substances; Z91.030 Bee allergy status
CPT/HCPCS: 36415; 80053; 80306; 85025; 87635; 93005; 99285

== ENCOUNTER 2022-01-23 11:35 | Emergency (ER) | payer OTHER ==
[2022-01-23 12:36] VITALS: TEMP 97.8
[2022-01-23 13:07] LABS: Appearance,Urine Cloudy (Clear); Bacteria,Urine Occasional /hpf; Bilirubin,Urine Negative (Negative); Blood,Urine Small (Negative); Budding Yeast,Urine Occasional /hpf; Color,Urine Dark Brown; Glucose,Urine (UA) Negative (Negative); Ketones,Urine Negative (Negative); Leukocyte Esterase,Urine Large (Negative); Mucus,Urine Few /hpf; Nitrite,Urine Positive (Negative); Protein,Urine Trace (Negative); RBC,Urine 18 /hpf (0-5); Specific Gravity,Urine 1.009 (1.001-1.035); Squamous Epithelial Cell,Urine 9 /hpf (0-4); Urobilinogen,Urine <2.0 mg/dL (<2.0); WBC,Urine >182 /hpf (0-5)
--- NOTE | 2022-01-23 13:58 | XR ---
EXAMINATION TYPE: XR KUB DATE OF EXAM: 01/23/2022 COMPARISON: NONE HISTORY: Pain TECHNIQUE: Single supine KUB image of the abdomen is obtained FINDINGS: Small bowel demonstrates no evidence for dilatation or air fluid levels. Gas and fecal material is seen in non-distended colon. No convincing evidence for pneumoperitoneum. No unusual calcifications. The lung bases are clear. The osseous structures are intact. IMPRESSION: 1. Overall nonobstructive bowel gas pattern.
[2022-01-23 14:19] LABS: Basophils # (A) 0.1 k/uL (0-0.2); Basophils % (A) 1 %; Eosinophils # (A) 0.2 k/uL (0-0.7); Eosinophils % (A) 2 %; HCT 37.6 % (34.0-46.0); HGB 11.7 gm/dL (11.4-16.0); Hypochromasia Slight; Lymphocytes # (A) 2.2 k/uL (1.0-4.8); Lymphocytes % (A) 25 %; MCH 22.4 pg (25.0-35.0); MCHC 31.2 g/dL (31.0-37.0); MCV 71.8 fL (80.0-100.0); Microcytosis Moderate; Monocytes # (A) 0.5 k/uL (0-1.0); Monocytes % (A) 5 %; Neutrophils # (A) 5.7 k/uL (1.3-7.7); Neutrophils % (A) 66 %; Platelet Count 300 k/uL (150-450); RBC 5.24 m/uL (3.80-5.40); RDW 14.8 % (11.5-15.5); WBC 8.8 k/uL (3.8-10.6)
[2022-01-23 14:31] LABS: ALT 13 U/L (4-34); AST 27 U/L (14-36); African American GFR (CKD) >90 (>60 ml/min/1.73 sqM); Alkaline Phosphatase 62 U/L (38-126); Anion Gap 14 mmol/L; Blood Urea Nitrogen 9 mg/dL (7-17); Calcium 9.7 mg/dL (8.4-10.2); Carbon Dioxide 22 mmol/L (22-30); Chloride 101 mmol/L (98-107); Glucose 99 mg/dL (74-99); Non-African American GFR(CKD) >90 (>60 ml/min/1.73 sqM); Potassium 4.7 mmol/L (3.5-5.1); Sodium 137 mmol/L (137-145); Total Bilirubin 0.5 mg/dL (0.2-1.3); Total Protein 7.6 g/dL (6.3-8.2)
[2022-01-23] MEDS ORDERED: cefTRIAXone 1,000 MG VIAL (IM USE) IM STA (14:37)
--- NOTE | 2022-01-23 14:41 | ED ---
General Adult HPI - General Chief complaint: Urogenital Stated complaint: poss kidney stone Time Seen by Provider: 01/23/22 14:31 Source: patient, RN notes reviewed Mode of arrival: ambulatory Limitations: no limitations - History of Present Illness Initial comments: 31-year-old female presents emergency department for right flank pain, dysuria. Patient states started over the last day or 2. Patient states she is like she has a urinary tract infection states she had a virtual appointment and was advised, return for possible any stone. Patient denies a history kidney stones nausea vomiting no hematuria noted patient offers no associated complaints denies any chance . - Related Data Previous Rx's Medication Instructions Recorded Cephalexin [Keflex] 500 mg PO Q8HR #30 cap 01/23/22 Allergies Allergy/AdvReac Type Severity Reaction Status Date / Time venom-honey bee Allergy Severe Anaphylaxis Verified 01/23/22 12:36 [bee venom (honey bee)] Milk Containing Products Allergy Rash/Hives Verified 01/23/22 12:36 gluten AdvReac Abdominal Verified 01/23/22 12:36 Pain Review of Systems ROS Statement: Those systems with pertinent positive or pertinent negative responses have been documented in the HPI. ROS Other: All systems not noted in ROS Statement are negative. Past Medical History Past Medical History: Hypertension, Thyroid Disorder Additional Past Medical History / Comment(s): HX OF DIVERTICULITIS (2010), History of Any Multi-Drug Resistant Organisms: None Reported Past Surgical History: Bariatric Surgery, Cholecystectomy, Hernia Repair, Tons illectomy Additional Past Surgical History / Comment(s): EGD 03/07/16, 05/21/16. , [id number]-EN-[id number] GASTRIC BYPASS (04/18/16) lysis of adhesions august 2016 Past Anesthesia/Blood Transfusion Reactions: Family History of Problems w/ Anesthesia, Motion Sickness, Postoperative Nausea & Vomiting (PONV) Additional Past Anesthesia/Blood Transfusion Reaction / Comment(s): IMMEDIATE FAMILY ALSO HAVE PONV. Past Psychological History: No Psychological Hx Reported Smoking Status: Never smoker Past Alcohol Use History: Occasional Past Drug Use History: Marijuana - Past Family History Father Family Medical History: No Reported History Mother Family Medical History: No Reported History General Exam Limitations: no limitations Course Vital Signs 01/23/22 12:33 Temperature 97.8 F Pulse Rate 78 Respiratory 20 Rate Blood Pressure 155/98 O2 Sat by Pulse 97 Oximetry Medical Decision Making - Medical Decision Making 31-year-old female presented for flank pain dysuria patient has evidence urinary tract infection active positive urine greater than 182 WBCs and urinalysis. Patient was given Rocephin and discharged on Keflex increasing fluids and return parameters were discussed. - Lab Data Result diagrams: 01/23/22 14:01 01/23/22 14:01 Lab Results 01/23/22 01/23/22 01/23/22 Range/Units 12:44 12:44 14:01 WBC 8.8 (3.8-10.6) k/uL RBC 5.24 (3.80-5.40) m/uL Hgb 11.7 (11.4-16.0) gm/dL Hct 37.6 (34.0-46.0) % MCV 71.8 L (80.0-100.0) fL MCH 22.4 L (25.0-35.0) pg MCHC 31.2 (31.0-37.0) g/dL RDW 14.8 (11.5-15.5) % Plt Count 300 (150-450) k/uL MPV 8.0 Neutrophils % 66 % Lymphocytes % 25 % Monocytes % 5 % Eosinophils % 2 % Basophils % 1 % Neutrophils # 5.7 (1.3-7.7) k/uL Lymphocytes # 2.2 (1.0-4.8) k/uL Monocytes # 0.5 (0-1.0) k/uL Eosinophils # 0.2 (0-0.7) k/uL Basophils # 0.1 (0-0.2) k/uL Hypochromasia Slight Microcytosis Moderate Sodium (137-145) mmol/L Potassium (3.5-5.1) mmol/L Chloride (98-107) mmol/L Carbon Dioxide (22-30) mmol/L Anion Gap mmol/L BUN (7-17) mg/dL Creatinine (0.52-1.04) mg/dL Est GFR (CKD-EPI)AfAm (>60 ml/min/1.73 sqM) Est GFR (CKD-EPI)NonAf (>60 ml/min/1.73 sqM) Glucose (74-99) mg/dL Calcium (8.4-10.2) mg/dL Total Bilirubin (0.2-1.3) mg/dL AST (14-36) U/L ALT (4-34) U/L Alkaline Phosphatase (38-126) U/L Total Protein (6.3-8.2) g/dL Albumin (3.5-5.0) g/dL Urine Color Dark Brown Urine Appearance Cloudy H (Clear) Urine pH 5.0 (5.0-8.0) Ur Specific Mineral 1.009 (1.001-1.035) Urine Protein Trace H (Negative) Urine Glucose (UA) Negative (Negative) Urine Ketones Negative (Negative) Urine Blood Small H (Negative) Urine Nitrite Positive H (Negative) Urine Bilirubin Negative (Negative) Urine Urobilinogen <2.0 (<2.0) mg/dL Ur Leukocyte Esterase Large H (Negative) Urine RBC 18 H (0-5) /hpf Urine WBC >182 H (0-5) /hpf Urine WBC Clumps Moderate H (None) /hpf Ur Squamous Epith Cells 9 H (0-4) /hpf Urine Bacteria Occasional H (None) /hpf Urine Mucus Few H (None) /hpf Urine Yeast (Budding) Occasional H (None) /hpf Urine HCG, Qual Not Detected (Not Detectd) 01/23/22 Range/Units 14:01 WBC (3.8-10.6) k/uL RBC (3.80-5.40) m/uL Hgb (11.4-16.0) gm/dL Hct (34.0-46.0) % MCV (80.0-100.0) fL MCH (25.0-35.0) pg MCHC (31.0-37.0) g/dL RDW (11.5-15.5) % Plt Count (150-450) k/uL MPV Neutrophils % % Lymphocytes % % Monocytes % % Eosinophils % % Basophils % % Neutrophils # (1.3-7.7) k/uL Lymphocytes # (1.0-4.8) k/uL Monocytes # (0-1.0) k/uL Eosinophils # (0-0.7) k/uL Basophils # (0-0.2) k/uL Hypochromasia Microcytosis Sodium 137 (137-145) mmol/L Potassium 4.7 (3.5-5.1) mmol/L Chloride 101 (98-107) mmol/L Carbon Dioxide 22 (22-30) mmol/L Anion Gap 14 mmol/L BUN 9 (7-17) mg/dL Creatinine 0.77 (0.52-1.04) mg/dL Est GFR (CKD-EPI)AfAm >90 (>60 ml/min/1.73 sqM) Est GFR (CKD-EPI)NonAf >90 (>60 ml/min/1.73 sqM) Glucose 99 (74-99) mg/dL Calcium 9.7 (8.4-10.2) mg/dL Total Bilirubin 0.5 (0.2-1.3) mg/dL AST 27 (14-36) U/L ALT 13 (4-34) U/L Alkaline Phosphatase 62 (38-126) U/L Total Protein 7.6 (6.3-8.2) g/dL Albumin 5.0 (3.5-5.0) g/dL Urine Color Urine Appearance (Clear) Urine pH (5.0-8.0) Ur Specific Mineral (1.001-1.035) Urine Protein (Negative) Urine Glucose (UA) (Negative) Urine Ketones (Negative) Urine Blood (Negative) Urine Nitrite (Negative) Urine Bilirubin (Negative) Urine Urobilinogen (<2.0) mg/dL Ur Leukocyte Esterase (Negative) Urine RBC (0-5) /hpf Urine WBC (0-5) /hpf Urine WBC Clumps (None) /hpf Ur Squamous Epith Cells (0-4) /hpf Urine Bacteria (None) /hpf Urine Mucus (None) /hpf Urine Yeast (Budding) (None) /hpf Urine HCG, Qual (Not Detectd) Disposition Clinical Impression: Urinary tract infection Disposition: HOME SELF-CARE Condition: Stable Instructions (If sedation given, give patient instructions): Urinary Tract Infection in Women (ED) Additional Instructions: Please return to the Emergency Department if symptoms worsen or any other concerns. Prescriptions: Cephalexin [Keflex] 500 mg PO Q8HR #30 cap Is patient prescribed a controlled substance at d/c from ED?: No Referrals: None,Stated [Primary Care Provider] - 1-2 days Time of Disposition: 14:41
[2022-01-23 14:53] VITALS: BP 148/92; PULSE 72; RESP 18
== END 2022-01-23 14:50 | disposition home or self-care (01) ==
LOC: EC 11:35
DX: N39.0 Urinary tract infection, site not specified (principal); I10 Essential (primary) hypertension; Z91.030 Bee allergy status; Z91.011 Allergy to milk products; Z91.09 Other allergy status, other than to drugs and biological substances
CPT/HCPCS: 36415; 80053; 85025; 81001; 81025; 87086; 74018; 99284; 96372; J0696